=== PATIENT | female | born 1950 | race Caucasian/White ===

== ENCOUNTER 2023-04-13 10:13 | Emergency (ER) | payer MEDICARE, OTHER, SELFPAY ==
--- NOTE | 2023-04-13 10:17 | ED.FEMALEGU ---
HPI - Female Genitourinary General Chief complaint: Urogenital-Female Stated complaint: uti symptoms Time Seen by Provider: 04/13/23 10:17 Source: patient Mode of arrival: ambulatory Limitations: no limitations History of Present Illness HPI Narrative: Beba is a 72-year-old female patient presenting to the clinic today with complaints of possible UTI. She reports pain to the outside of the vaginal area with urination. States about a month ago she fell she had some vaginal itching. Has been scratching and may have cut herself when scratching. The burning has been going on for approximately 3 days. Denies any new soaps or shampoos, new sexual partners, or any new medications/antibiotics. Related Data Home Medications Medication Instructions Recorded Confirmed atorvastatin 20 mg tablet 20 mg PO DAILY 04/13/23 04/13/23 calcium carbonate 600 mg calcium 600 mg PO DAILY 04/13/23 04/13/23 (1,500 mg) tablet cetirizine 10 mg tablet 10 mg PO DAILY 04/13/23 04/13/23 folic acid 1 mg tablet 1 mg PO DAILY 04/13/23 04/13/23 levothyroxine 50 mcg tablet 50 mcg PO DAILY 04/13/23 04/13/23 (Synthroid) losartan 50 mg tablet 50 mg PO DAILY 04/13/23 04/13/23 Allergies Allergy/AdvReac Type Severity Reaction Status Date / Time propoxyphene Allergy Mild Other Unverified 04/13/23 10:43 Review of Systems Review of Systems: Pertinent positives per HPI. Patient denies any fever, chills, rash, headache, visual changes, dizziness, cough, runny nose, sore throat, shortness of breath, chest pain, palpitations, nausea, vomiting, diarrhea, constipation, abdominal pain. PMFSH Comments At the time of my signature, I reviewed and agree with the nursing past medical, surgical, social, and family history. There is no relevant family history pertinent to the patient complaint. Exam Narrative: General: Well-developed, well nourished, in no apparent distress Head: Normocephalic, atraumatic. Cardio: Regular rate and rhythm, s1 and s2 normal, no murmur appreciated. Resp: Clear to auscultation bilaterally, no rhonchi, rales, wheezing or rubs. Abdomen: Soft, pliable, bowel sounds present in all quadrants, non-tender to palpation, no CVAT tenderness. : External pelvic exam performed with (Mirna العراقي) at bedside. Verbal consent obtained from patient. Normal external female genitalia without lesions or masses, irritation,redness, with mild swelling noted to the lower labias Urinary meatus: patent without discharge, Vagina: No lesions, masses, or discharge to the vaginal introitus. Course Course Emergency Course: Portions of this record may have been created with voice recognition software. Level of Care: Express Care Visit Vital Signs Vital signs: Vital signs reviewed MDM - Female Genitourinary MDM Narrative Medical decision making narrative: At the time of visit patient is resting comfortably on the exam table. Patient appears to be nontoxic. UA was performed and was negative for any sign of infection. Does have a trace of blood. External vaginal exam was performed with Mirna at the bedside and shows excoriation of the bilateral lower labia is with redness and swollen. No sign of vaginal drainage or foul odor. Will treat for vaginal pruritus place patient on triamcinolone cream. Will have her follow-up with her OBGYN for further evaluation. Supportive measures were discussed with the patient and they voiced understanding discharge instructions and agrees to treatment plan. Return precautions reviewed Differential Diagnosis Differential diagnosis: Likely urinary tract infection, cystitis and other (Vaginal Tiffany) Discharge Plan Discharge Clinical Impression: Vulvovaginal itching, Vulvovaginal pain Patient Disposition: Home, Self-Care Condition: Stable Instructions: Antibiotic Form, Itchy Skin (ED) Additional Instructions: UA negative for any sign of infection. Does show trace of blood. Apply triamcinolone cream
[2023-04-13 10:34] VITALS: BP 150/78; PULSE 90; RESP 18; TEMP 36.3; O2SAT 98
== END 2023-04-13 11:07 | disposition home or self-care (01) ==
PROVIDERS: Emergency Provider Nurse Practitioner Family
DX: N89.8 Other specified noninflammatory disorders of vagina (principal); R10.2 Pelvic and perineal pain; E78.00 Pure hypercholesterolemia, unspecified; I10 Essential (primary) hypertension; E03.9 Hypothyroidism, unspecified
CPT/HCPCS: 81003; 99213; G0463

== ENCOUNTER 2024-12-03 10:03 | Outpatient (CLI) | payer MEDICARE, OTHER, SELFPAY ==
[2024-12-03 10:22] LABS: Hematocrit 41.4 % (37.0-47.0); Hemoglobin 13.4 g/dL (12.0-15.0); Mean Corpuscular HGB Conc 32.4 g/dl (32-36); Mean Corpuscular Hemoglobin 31.4 pg (26-34); Mean Corpuscular Volume 97.0 fl (80-100); Platelet Count Result 267 k/mm3 (150-375); Red Blood Count 4.27 M/mm3 (4.2-5.4); White Blood Count 5.8 K/mm3 (4.5-10.0)
--- OUTSIDE RECORDS SUMMARY | 2024-12-03 10:26 | XMS_ITS | Continuity of Care Document ---
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 It does not include entries that were removed or entered in error. 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 DoD Outpatient Physician Consultation Active Condition DoD bee venom anaphylaxis Active Condition DoD skin: rash [as Sx] Active Condition DoD tingling (paresthesia) Active Condition DoD nonalcoholic steatohepatitis Active Condition DoD overweight Active Condition DoD allergic rhinitis Active Condition DoD acrochordon Active Condition DoD acute bronchitis Inactive Condition DoD Blood Pressure Isolated Elevated Active Condition DoD hypothyroidism subclinical Active Condition DoD Laboratory Studies Inactive Condition Do D hypothyroidism Active Condition DoD visit for: issue repeat prescription for medication Active Condition DoD Swelling Of Fingers Active Condition Do D visit for: issue repeat prescription Inactive Condition DoD seborrheic keratosis Active Condition DoD ulcerative colitis Active Condition DoD irritable bowel syndrome Active Condition DoD hematuria Active Condition DoD depression Active Condition DoD routine history and physical adult (18 - 64 yrs) Active Condition discussed no need for paps but still needs clinical breast exam yearly, preferably prior to mammo DoD Hysterectomy Active Condition DoD restless legs syndrome Active Condition DoD impaired fasting glucose Active Condition Fasting glucose has improved somewhat. DoD Preventive Medicine Established Patient Checkup Adult 40-64 Years Inactive Condition DoD accidental puncture / laceration during a procedure Active Condition DoD open wound Active Condition DoD hyperlipidemia Active Condition Discu ssed all her lab results. Wrote rx for tricor. DoD esophageal reflux Active Condition DoD fatty liver Active Condition DoD bursitis trochanteric Active Condition DoD Administrative Evaluation Services Inactive Condition DoD osteopenia Active Condition DoD visit for: administrative purpose Inactive Condition DoD Need For Vaccination Hepatitis B Inactive Condition DoD Need For Vaccination Hepatitis A Inactive Condition DoD tendonitis gluteal Active Condition DoD visit for: routine eye exam Inactive Condition DoD presbyopia Active Condition DoD astigmatism Active Condition DoD refractive error - myopia Active Condition LE DoD visit for: screening malignant neoplasm colon Inactive Condition DoD esophagitis chronic reflux Active Condition DoD Serum Enzyme Levels - AST (SGOT) Elevated Active Condition DoD Serum Enzyme Levels - ALT (SGPT) Elevated Active Condition DoD Metabolic Tests Nonspecific Elevation Of Transaminase Levels Active Condition Labs due first week of February 2005. please refer to previous notes in [facility] for more information DoD Allergic rhinitis Active Condition 0055 C-375 th [facility] Bee sting-induced anaphylaxis Active Condition 0055C-375 th [facility] Essential hypertension Active Condition 0055C-375 th [facility] GERD - Gastro-esophageal reflux disease Active Condition 0055C-375 th [facility] Hyperlipidemia1 Active Condition Outs keyana Source Comment: Discussed all her lab results. Wrote rx for tricor. 0055C-375 th [facility] Hypothyroidism Active Condition 0055C-3 [facility] Obesity, unspecified Active Condition 0055C-375 th [facility] Osteoporosis Active Condition 0055C-375 th [facility] Prediabetes Active Condition 0055C-375 th [facility] Restless legs syndrome Active Condition 0055C-375 th [facility] Steatosis of liver Active Condition 005 5C-375 th [facility] Vitamin D deficiency Active Condition 0055C-375 th [facility] Medications Combined list of outpatient medications from Department of Defense and Veterans Affairs facilities.Medications provided include 1) outpatient medications from the last 15 months, and 2) patient-reported medications. Medication Details Route Status Patient Instructions Prescription Expires Prescription Number Last Dispense Date Ordering Provider Order Date Order Qty Source Advil Oral, every 6 hr, 0 total refill(s ), Maintena nce Oral (given by mouth) Discont inued 05/23/202320235C-3 [facility] Advil Oral, every 6 hr, 0 total refill(s ), Maintena nce Oral (given by mouth) Ordered 20235C-3 [facility] Edson alendronate 70 mg oral tablet TAKE ONE TABLET BY MOUTH ONCE A WEEK DIRECTED , # 12 EA, 2 total refill(s ), Acute Complet ed 03/23/2023 3 2022 12.0 Ambulat ory Pharmac y alendronate 70 mg oral tablet 1 tab(s), Oral, every week, with 6 to 8 ounces plain water, at least 30 minutes before first food, beverage , or medicati on of the day Ok to take with Synthroi d, # 12 tab(s), 3 total refill(s ), Maintena [facility], Pharmacy : [facility] Oral (given by mouth) Discont inued 03/04/2024 4 2023 12.0 0055C-3 75[facility] Edson alendronate 70 mg oral tablet 1 tab(s), Oral, every week, with 6 to 8 ounces plain water, at least 30 minutes before first food, beverage , or medicati on of the day Ok to take with Synthroi d, # 12 tab(s), 3 total refill(s ), Maintena [facility], Pharmacy : [facility] Oral (given by mouth) Ordered 5 2023 12.0 0055C-3 75[facility] Edson aspirin 81 mg oral delayed release tablet 1 tab(s), Oral, Daily, # 90 tab(s), 0 total refill(s ), Maintena ale Oral (given by mouth) Ordered 2023 90.0 0055C-3 75[facility] Edson aspirin 81 mg oral delayed release tablet TAKE ONE TABLET BY MOUTH EVERY DAY *SWALLOW WHOLE - DO NOT CHEW*, # 90 EA, 3 total refill(s ), Acute Complet ed 05/08/2023 3 2023 90.0 Ambulat ory Pharmac y atorvastati n 20 mg oral tablet 1 tab(s), Oral, Daily, for choleste rol, # 90 tab(s), 3 total refill(s ), Maintena ale, Pharmacy : [facility] Oral (given by mouth) Discont inued 03/04/2024 4 2023 90.0 0055C-3 75[facility] Edson atorvastati n 20 mg oral tablet 1 tab(s), Oral, Daily, for choleste rol, # 90 tab(s), 3 total refill(s ), Maintena nce, Pharmacy : [facility] Oral (given by mouth) Ordered 5 2023 90.0 0055C-3 [facility] atorvastati n 20 mg tablet See Instruct ions, # 90 EA, 2 total refill(s ), Acute Complet ed 05/08/2023 3 2023 90.0 Ambulat ory Pharmac y calcium (as carbonate)- vitamin D 600 mg-20 mcg (800 intl units) oral tablet, chewable 1 tab(s), Chew, BID, # 60 tab(s), 0 total refill(s ), Maintena nce Chew Ordered 2023 60.0 0055C-3 [facility] cetirizine 10 mg tablet See Instruct ions, # 90 EA, 2 total refill(s ), Acute Complet ed 05/08/2023 3 2023 90.0 Ambulat ory Pharmac y cinnamon 1,000 mg, Oral, 0 total refill(s ), Maintena nce Oral (given by mouth) Ordered 2023 0055C-3 [facility] conjugated estrogens 0.625 mg/g vaginal cream with applicator 0.5 g, Vaginal, every evening, Apply 0.5g vaginall y every night for 2 weeks, then twice weekly thereaft er, # 30 g, 3 total refill(s ), Maintena nce, Pharmacy : [facility] Vagina l (in the vagina ) Ordered 4 2023 30.0 0055C-[address] [place], [place] [address]ERNESTO Sandhu diclofenac 1% topical gel See instruct ions, Apply 2 grams (upper extremit ies) or 4 grams (lower extremit ies) to affected area topicall y four times daily as needed for pain. Max total body dose of 32 grams per day, # 100 g, 3 total refill(s ), Maintena nce, Pharmacy : [facility] Discont inued 03/04/2024 4 2023 100.0 0055C-[address] [place], [place] [address]CAT Edson diclofenac 1% topical gel See instruct ions, Apply 2 grams (upper extremit ies) or 4 grams (lower extremit ies) to affected area topicall y four times daily as needed for pain. Max total body dose of 32 grams per day, # 100 g, 3 total refill(s ), Kavitha an, Pharmacy : [facility] Ordered 4 2023 100.0 0055C-3 75th RAINA Sandhu diclofenac 1% topical gel USE DOSING CARD TO APPLY 2 TO 4 GRAMS TO AFFECTED AREAS EVERY NIGHT DIRECTED , # 200 g, 3 total refill(s ), Acute Complet ed 12/13/20222022 200.0 Ambulat ory Pharmac y Diflucan 150 mg oral tablet 1 tab(s), Oral, As Directed , X 1 days, # 1 tab(s), 0 total refill(s ), Acute, 04/14/23 12:04:00 PM [facility] [employer]ER, Pharmacy : [facility] Oral (given by mouth) Complet ed 04/14/2023 4 2023 1.0 0055C-3 75th RAINA Sandhu EPINEPHrine 0.3 mg injectable kit USE DIRECTED FOR SEVERE ALLERGIC REACTION , # 2 EA, 3 total refill(s ), Acute Complet ed 12/13/20222022 2.0 Ambulat ory Pharmac y EpiPen 2-Phillip 0.3 mg injectable kit See Instruct ions, Inject 1 pen into muscle of mid-oute r thigh as needed for allergic emergenc y. Seek medical attentio n. May repeat dose with new pen after 5 minutes if symptoms persist, # 1 EA, 1 total refill(s ), Kavitha alhansel, Pharmacy : [facility] Discont inued 03/04/2024 4 2023 1.0 0055C-3 75th [facility] Sand[facility] EpiPen 2-Phillip 0.3 mg injectable kit See Instruct ions, Inject 1 pen into muscle of mid-oute r thigh as needed for allergic emergenc y. Seek medical attentio n. May repeat dose with new pen after 5 minutes if symptoms persist, # 1 EA, 1 total refill(s ), Kavitha an, Pharmacy : 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 Oral (given by mouth) Complet ed 04/20/2023 4 2023 14.0 0055C-3 75th [facility] Edson fluticasone 50 mcg/inh nasal spray 100 mcg, Nostril- Both, Daily, # 16 g, 5 total refill(s ), Maintena nce, Pharmacy : [facility] Nostri l-Both (into the nose) Discont inued 03/04/2024 4 2023 16.0 0055C-3 [facility] Edson fluticasone 50 mcg/inh nasal spray USE 2 SPRAYS IN EACH NOSTRIL DAILY, # 16 g, 3 total refill(s ), Acute Complet ed 12/13/20222022 16.0 Ambulat ory Pharmac y fluticasone 50 mcg/inh nasal spray 100 mcg, Nostril- Both, Daily, # 48 g, 3 total refill(s ), Maintena nce, Pharmacy : [facility] Nostri l-Both (into the nose) Ordered 5 2023 48.0 0055C-[address] [place] [address] Edosn folic acid 1 mg oral tablet 1 tab(s), Oral, Daily, # 90 tab(s), 3 total refill(s ), Maintena nce, Pharmacy : [facility] Oral (given by mouth) Discont inued 03/04/2024 4 2023 90.0 0055C-3 75th [facility] folic acid 1 mg oral tablet 1 tab(s), Oral, Daily, # 90 tab(s), 3 total refill(s ), Maintena nce, Pharmacy : [facility] Oral (given by mouth) Ordered 5 2023 90.0 0055C-3 75th [facility] folic acid 1 mg tablet See Instruct ions, # 90 EA, 2 total refill(s ), Acute Complet ed 05/08/2023 3 2023 90.0 Ambulat ory Pharmac y glucosamine Oral, 0 total refill(s ), Maintena nce Oral (given by mouth) Ordered 2023 0055C-3 [facility] Edson levothyroxi ne (Synthroid) 50 mcg tablet See dose instruct ions in comments , # 90 EA, 2 total refill(s ), Acute Complet ed 05/08/2023 3 2023 90.0 Ambulat ory Pharmac y levothyroxi ne 25 mcg oral tablet 1 tab(s), Oral, Daily, for thyroid, # 90 tab(s), 3 total refill(s ), Maintena ale, Pharmacy : [facility] Oral (given by mouth) Ordered 5 2023 90.0 0055C-3 75[facility] Edson levothyroxi ne 50 mcg oral tablet 1 tab(s), Oral, Daily, for thyroid, # 90 tab(s), 3 total refill(s ), Maintena ale, Pharmacy : [facility] Oral (given by mouth) Discont inued 03/04/2024 4 2023 90.0 0055C-3 [facility] Edson losartan 50 mg oral tablet 1 tab(s), Oral, Daily, for blood pressure , # 90 tab(s), 3 total refill(s ), Maintena ale, Pharmacy : [facility] Oral (given by mouth) Discont inued 03/04/2024 4 2023 90.0 0055C-3 [facility] mg oral tablet 1 tab(s), Oral, Daily, for blood pressure , # 90 tab(s), 3 total refill(s ), Maintena nce, Pharmacy : [facility] Oral (given by mouth) Ordered 5 2023 90.0 0055C-3 [facility] losartan 50 mg tablet See Instruct ions, # 90 EA, 2 total refill(s ), Acute Complet ed 05/08/2023 3 2023 90.0 Ambulat ory Pharmac y Bostwick-3 oral capsule 0 total refill(s ), Maintena nce Ordered 2023 0055C-3 75th RAINA Sandhu Super B Complex oral tablet Oral, Daily, 0 total refill(s ), Maintena nce Oral (given by mouth) Ordered 2023 0055C-3 75th [facility] Sandhu terbinafine 1% topical cream 1 appl(s), Topical, BID, Apply to affected area for at least 2 weeks but no more than 4 weeks., # 30 g, 1 total refill(s ), Acute, Pharmacy : [facility] Topica l (on the skin) Complet ed 06/13/2023 4 2023 30.0 0055C-3 75th [facility] Sandhu turmeric Oral, Daily, 0 total refill(s ), Maintena nce Oral (given by mouth) Ordered 2023 0055C-3 75th RAINA Sandhu Tylenol Oral, 0 total refill(s ), Maintena nce Oral (given by mouth) Ordered 2023 0055C-3 75th [facility] Sandhu Vitamin D3 125 mcg (5000 intl units) oral capsule 1 cap(s), Oral, Daily, with food, # 56 cap(s), 0 total refill(s ), Maintena nce, Pharmacy : [facility] Oral (given by mouth) Ordered 5 2024 56.0 0055C-3 75th [facility] Sandhu Vitamin D3 125 mcg (5000 intl units) oral capsule 1 cap(s), Oral, Daily, with food, # 60 cap(s), 0 total refill(s ), Maintena nce, Pharmacy : [facility] Oral (given by mouth) Discont inued 03/11/2024 4 2023 60.0 0055C-3 75th [facility] Sandhu Vitamin D3 50 mcg (2000 intl units) oral capsule 1 cap(s), Oral, Daily, 0 total refill(s ), Maintena nce Oral (given by mouth) Ordered 2023 0055C-3 [facility] Sandhu Allergies, Adverse Reactions, Alerts Combined list of allergies from Department of Defense and Veterans Affairs facilities. It does not include entries that were removed or entered in error. Substance Category Reaction Severity Reaction type Status Date Reported Comments Source bee pollen Propensity to adverse reactions to substance Anaphylaxis Active 8 Unknown Organiza tion BEE POLLENS {Cla } Allergy to substance (disorder) Anaphylaxis active [address] [place] [address] [employer] [facility] DARVON (PROPOXYPHEN E HCL) Drug allergy (disorder) Unknown active [address] [place] [address] Edson [facility] ([facility] propoxyphene Propensity to adverse reactions to drug Unknown Active 8 Unknown Organiza tion Immunizations Combined list of available immunizations from the Department of Defense and Veterans Affairs facilities. 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: [id number] Ambulat ory Pharmac y zoster vaccine, inactivated 2021 zzRig ht Arm [id number] GlaxoSmithKli ne complet ed zoster vaccine, inactivat ed 01/27/22 Given Ambulat ory Pharmac y zoster vaccine recombinant 1 2021 Unknown, Provider [id number] Bradenine (SKB) complet ed zoster vaccine recombina nt DoD influenza, high-dose seasonal, quad, pf 2021 TRANSCR IBED 197 Unknown complet ed influenza , high-dose seasonal, quad, pf 01/23/22 Given Ambulat ory Pharmac y influenza, high-dose seasonal, quadrivalent, .7mL dose, preservative free 2021 Unknown, Provider 197 Unknown (UNK) complet ed influenza , high-dose seasonal, quadrival ent, .7mL dose, preservat eduardo free DoD zoster vaccine, inactivated 2020 zzRig ht Arm [id number] 187 GlaxoSmithKli ne complet ed zoster vaccine, inactivat ed 12/21/20 Given Ambulat ory Pharmac y pneumococcal polysaccharid e, 23 valent 2020 zzLef t Arm [id number] Merck & Company Inc complet ed pneumococ rebeca polysacch aride, 23 valent 12/21/20 Given Ambulat ory Pharmac y pneumococcal polysaccharid e vaccine, 23 valent 1 2020 Unknown, Provider [id number] Merck (MSD) complet ed pneumococ rebeca polysacch aride vaccine, 23 valent DoD zoster vaccine recombinant 1 2020 Unknown, Provider [id number] [address] [place], [place] [address] (SKB) complet ed zoster vaccine recombina nt DoD influenza virus vaccine, unspecified 2020 TRANSCR IBED 88 complet ed influenza virus vaccine, unspecifi ed 12/08/20 Given Ambulat ory Pharmac y influenza, high-dose, quadrivalent 2020 AIME, () Not Given influenza , high-dose , quadrival ent DoD influenza virus vaccine, unspecified formulation 1 2020 Unknown, Provider 88 Transcribed (TRS) complet ed influenza virus vaccine, unspecifi ed formulati on DoD influenza, high-dose seasonal, quad, pf 2020 ALEXRGARCIAFA NTAUZZI 197 complet ed Result Comment: Unit: Unknown Manufactu rer: () Ambulat ory Pharmac y SARS-CoV-2 (COVID-19) Ad26 vaccine, rec 2020 TRANSCR IBED 212 complet ed SARS-CoV- 2 (COVID-19 ) Ad26 vaccine, rec 06/11/20 Given Ambulat ory Pharmac y SARS-COV-2 (COVID-19) vaccine, vector non-replicati ng, recombinant spike protein-Ad26, preservative free, 0.5 mL 1 2020 Unknown, Provider 212 Chris (JSN) complet ed SARS-COV- 2 (COVID-19 ) vaccine, vector non-repli cating, recombina nt spike protein-A d26, preservat eduardo free, 0.5 mL DoD influenza, high-dose, quadrivalent 2019 ALUL, () Not Given influenza , high-dose , quadrival ent DoD influenza, high-dose seasonal, quad, pf 2019 ALEXRGARCIAFA NTAUZZI 197 complet ed Result Comment: Unit: Unknown Manufactu rer: () Ambulat ory Pharmac y pneumococcal 13-valent conjugate (PCV13) 2018 zzRig ht Thigh [id number] [employer] complet ed pneumococ rebeca 13-valent conjugate (PCV13) 09/10/18 Given Ambulat ory Pharmac y pneumococcal conjugate vaccine, 13 valent 1 2018 Unknown, Provider [id number] [facility] ([facility]) complet ed pneumococ rebeca conjugate vaccine, 13 valent DoD tetanus-dipht h toxoids (Td) adult/adol 2017 zzRig ht Arm [id number] 09 sanofi pasteur complet ed tetanus-d iphth toxoids (Td) adult/ado l 03/07/18 Given Ambulat ory Pharmac y tetanus and diphtheria toxoids, adsorbed, preservative free, for adult use (2 Lf of tetanus toxoid and 2 Lf of diphtheria toxoid) 1 2017 Unknown, Provider [id number] 09 Sanofi Pasteur (PMC) complet ed tetanus and diphtheri a toxoids, adsorbed, preservat eduardo free, for adult use (2 Lf of tetanus toxoid and 2 Lf of diphtheri a toxoid) DoD zoster vaccine live 2011 zzLef t Arm [id number] 121 Merck & Company Inc complet ed zoster vaccine live 10/04/11 Given Ambulat ory Pharmac y zoster vaccine, live 1 2011 Unknown, Provider [id number] 121 Merck (MSD) complet ed zoster vaccine, live DoD influenza virus vaccine,split 2007 zzLef t Arm [id number] 15 sanofi pasteur complet ed influenza virus vaccine,s plit 03/11/08 Given Ambulat ory Pharmac y hepatitis B adult vaccine 2007 zzLef t Arm [id number] 43 GlaxoSmithKli ne complet ed hepatitis B adult vaccine 03/11/08 Given Ambulat ory Pharmac y influenza virus vaccine, split virus (incl. purified surface antigen)-reti red CODE 1 2007 Unknown, Provider [id number] 15 Sanofi Pasteur (PMC) complet ed influenza virus vaccine, split virus (incl. purified surface antigen)- retired CODE DoD hepatitis B vaccine, adult dosage 3 2007 Unknown, Provider [id number] 43 Sociusdeepak (SKB) complet ed hepatitis B vaccine, adult dosage DoD HepB, Adult 2007 JOSHUA [id number] 0AA 43 complet ed Result Comment: Route: Intramusc ular(IM) Manufactu rer: Douglas magana (EDVIN) 0055C-[address] [place] [address] pneumococcal polysaccharid e, 23 valent 2006 zzLef t Arm [id number] Merck & Company Inc complet ed pneumococ rebeca polysacch aride, 23 valent 03/19/07 Given Ambulat ory Pharmac y pneumococcal polysaccharid e vaccine, 23 valent 1 2006 Unknown, Provider [id number] Merck (MSD) complet ed pneumococ rebeca polysacch aride vaccine, 23 valent DoD influenza virus vaccine,split 2006 zWilber Arm [id number] 15 GlaxoSmithKli ne complet ed influenza virus vaccine,s plit 03/05/07 Given Ambulat ory Pharmac y influenza virus vaccine, split virus (incl. purified surface antigen)-reti red CODE 1 2006 Unknown, Provider [id number] 15 Virgil (EDVIN) complet ed influenza virus vaccine, split virus (incl. purified surface antigen)- retired CODE [facility] tetanus-dipht h toxoids (Td) adult/adol 2006 09 complet ed tetanus-d iphth toxoids (Td) adult/ado l 09/14/06 Given Ambulat ory Pharmac y tetanus and diphtheria toxoids, adsorbed, preservative free, for adult use (2 Lf of tetanus toxoid and 2 Lf of diphtheria toxoid) 1 2006 Unknown, Provider 09 Transcribed (TRS) complet ed tetanus and diphtheri a toxoids, adsorbed, preservat eduardo free, for adult use (2 Lf of tetanus toxoid and 2 Lf of diphtheri a toxoid) [facility] hepatitis A-hepatitis B vaccine 2005 zzLef t Arm [id number] 5AA 104 GlaxoSmithKli ne complet ed hepatitis A-hepatit is B vaccine 10/11/05 Given Ambulat ory Pharmac y tetanus, diphtheria, acellular pertu is 2005 zzRig Arm [id number] sanofi pasteur complet ed tetanus, diphtheri a, acellular pertussis 10/11/05 Given Ambulat ory Pharmac y hepatitis A and hepatitis B vaccine 2 2005 Unknown, Provider [id number] 5AA 104 SmithKline (SKB) complet ed hepatitis A and hepatitis B vaccine DoD tetanus toxoid, reduced diphtheria toxoid, and acellular pertu is vaccine, adsorbed 1 2005 Unknown, Provider [id number] 115 Sanofi Pasteur (PMC) complet ed tetanus toxoid, reduced diphtheri a toxoid, and acellular pertussis vaccine, adsorbed DoD hepatitis A-hepatitis B vaccine 2005 zzLef t Arm [id number] 3AA 104 NepheraoSmSpeechCycleKli ne complet ed hepatitis A-hepatit is B vaccine 09/06/05 Given Ambulat ory Pharmac y hepatitis A and hepatitis B vaccine 1 2005 Unknown, Provider [id number] 104 SmithKline (SKB) complet ed hepatitis A and hepatitis B vaccine DoD influenza virus vaccine,split 2002 zzLef t Arm [id number] Novartis Pharmaceutica ls complet ed influenza virus vaccine,s plit 02/16/03 Given Ambulat ory Pharmac y influenza virus vaccine, split virus (incl. purified surface antigen)-reti red CODE 1 2002 Unknown, Provider [id number] 15 [employer] ls (PWJ) complet ed influenza virus vaccine, split virus (incl. purified surface antigen)- retired CODE DoD Results Combined list of recent chemistry, hematology and other laboratory results from Department of Defense and Veterans Affairs, ranging from 15 months to all on record, depending upon the facility. Order Name Results Value Reference Range Date Interpretation Specimen Comments Source Chemistry TSH 1.760 mIU/L 0.270 - 4.200 05/01 N Interpretiv e Data: Recommend: TPO/Thyrope roxidase Antibody when TSH result is > 4.2 uIU/mL 5600A-U [facility] EPILAB Chemistry Vitamin D 25 OH 26 ng/mL 30 - 100 05/01 L Interpretiv e Data: Classificat ion of Vitamin D Status: Deficient: <20 ng/mL Insufficien t: 20-29 ng/mL Sufficient: 30-100 ng/mL Possible Toxicity: >100 ng/mL This assay is for the quantitativ e determinati on of total 25 (OH) vitamin D. It is intended as an aid in the determinati on of vitamin D sufficiency . Results should always be interpreted in conjunction with the patient's medical history, clinical presentatio n, and other findings. Testing performed by [place]. [facility] Chemistry eGFR CKD EPI 91 mL/min/1 .73_m2 02/25 Interpretiv e Data: Estimated Glomerular Filtration Rate (eGFR) calculated using the 2020 Chronic Kidney Disease-Epi demiology (CKD-EPI) Collaborati on creatinine equation; units of measure are mL/min/1.73 m2. Results are only valid for adults (>=18 years) whose serum creatinine is in steady state. eGFR calculation s are not valid for patients with acute kidney injury and for patients on dialysis. Creatinine- based estimates of kidney function may also be inaccurate in patients with reduced creatinine generation due to decreased muscle mass (e.g., malnutritio n, severe hypoalbumin emia, sarcopenia, chronic neuromuscul ar disease, amputations , severe heart failure or liver disease) and in patients with increased creatinine generation due to increased muscle mass (e.g., muscle builders, anabolic steroids) or increased dietary intake. CKD is diagnosed based on abnormaliti es of kidney structure or function, present for >3 months, with implication s for health and disease. CKD is classified and staged based on cause, eGFR and albuminuria (quantified as urine albumin to creatinine ratio). An eGFR >60 mL/min/1.73 m2 in the absence of increased urine albumin excretion or structural abnormaliti es does not CKD. eGFR provides only an estimate of measured GFR within +/- 30% for most patients. As mentioned, nutritional status and muscle mass, among many factors, may lead to inaccuracy in the estimate. Consider ordering the creatinine- cystatin C panel if better accuracy is needed for clinical decision-bert moss. eGFR (mL/min/1.7 3 m2) CKD stage Interpretat ion Normal 60-89 Mild decrease 45-59 Mild to moderate decrease 30-44 Moderate to severe decrease 15-29 Severe decrease <15 Kidney failure 0055A-3 [facility] Chemistry Hemoglobin A1c 6.2 % 4.0 - 5.6 02/25 H Interpretiv e Data: Normal: 4.0 - 5.6% Increased Risk: 5.7 - 6.4% Diabetic Range: 6.5% For patients without diabetes, the normal range for the hemoglobin A1c test is between 4% and 5.6%. Hemoglobin A1c levels between 5.7% and 6.4% indicate increased risk of diabetes, and levels of 6.5% or higher indicate diabetes. Because studies have repeatedly shown that out-of-cont rol diabetes results in complicatio ns from the disease, the goal for people with diabetes is a hemoglobin A1c less than 7%. The higher the hemoglobin A1c, the higher the risks of developing complicatio ns related to diabetes. If confirmatio n is needed, consider recalling the patient and ordering Hemoglobin Electrophor esis. [facility] Chemistry eAvg Glucose 131 mg/dL 02/[address] [place], [place] [address] [facility] Chemistry Cholesterol Total 144 mg/dL 02/25 N Interpretiv e Data: According to the [place] [employer] : AGES 0-19: Desirable: < 170 mg/dL Borderline High: 170-199 mg/dL High Blood Cholesterol : >/= 200 mg/dL ADULTS: Desirable < 200 mg/dL Borderline High: 200-239 mg/dL High Blood Cholesterol : >/= 240 mg/dL [address] [place] [address] [facility] Chemistry Chol/HDL 3 mg/dL 02/[address] [place], [place] [address] [facility] Chemistry HDL Cholesterol 46 mg/dL 40 - 59 02/25 N Interpretiv e Data: HDL (HIGH DENSITY LIPOPROTEIN ): ADULTS: Low: < 40 mg/dL High: >/= 60 mg/dL AGES 0 -19: Low: < 40 mg/dL Borderline Low: 40 - 45 mg/dL Acceptable: > 45 mg/dL [address] [place], [place] [address] Chemistry LDL/HDL 2 02/[address] [place] [address] [facility] Chemistry Triglycerid es 183 mg/dL 7 - 149 02/25 H Interpretiv e Data: AGES 0-9: Desirable: < 75 mg/dL Borderline High: 75-99 mg/dL High: >/= 100 mg/dL AGES 10-19: Desirable: < 90 mg/dL Borderline High: 90-129 mg/dL High: >/= 130 mg/dL ADULTS: Desirable: < 150 mg/dL Borderline High: 150-199 mg/dL High: >/= 240 mg/dL Very High: >/= 500 mg/dL -[address] [place] [address] Chemistry LDL 80 mg/dL 100 - 130 02/25 L Interpretiv e Data: AGES 0-19: Desirable: < 110 mg/dL Borderline High: 110-129 mg/dL High: >/= 130 mg/dL ADULTS: Desirable: <100 mg/dL Near/above optimal: 100-130 mg/dL Borderline High: 131-159 mg/dL High: 160-189 mg/dL Very High: 190 mg/dL [address] [place] [address] Chemistry CO2 24 mmol/L 22 - 29 02/25 N 005-[address] [place] [address] Chemistry Creatinine Level 0.70 mg/dL 0.57 - 1.11 02/25 N 005-[address] [place] [address] Chemistry Potassium Lvl 4.0 mmol/L 3.5 - 5.1 02/25 N 5A-[address] [place] [address] Chemistry Glucose Lvl 131 mg/dL 74 - 99 02/25 H 5A-[address] [place] [address] Chemistry Sodium 141 mmol/L 136 - 145 02/25 N 0055A-[address] [place] [address] Chemistry Albumin 3.60 g/dL 3.50 - 5.20 02/25 N 0055A-[address] [place] [address] Chemistry Phosphorus 3.1 mg/dL 2.3 - 4.7 02/25 N 0055A-[address] [place] [address] Chemistry BUN 12 mg/dL 7 - 20 02/25 N 0055A-[address] [place] [address] Chemistry AGAP 8.00 0.00 - 15.00 02/25 N 0055A-[address] [place] [address] Chemistry Chloride 109 mmol/L 98 - 107 02/25 H 5A-[address] [place] [address] Chemistry Calcium 10.0 mg/dL 8.4 - 10.2 02/25 N 0055A-[address] [place] [address] Chemistry BUN/Creat Ratio 17 mg/dL 12 - 20 02/25 N 0055A-[address] [place] [address] Chemistry Vitamin D 25 OH 27.6 ng/mL 30.0 - 100.0 02/25 L Interpretiv e Data: Classificat ion of Vitamin D Status: Deficient: <20 ng/mL Insufficien t: 20-29 ng/mL Sufficient: 30-100 ng/mL Possible Toxicity: >100 ng/mL This assay is for the quantitativ e determinati on of total 25 (OH) vitamin D. It is intended as an aid in the determinati on of vitamin D sufficiency . Results should always be interpreted in conjunction with the patient's medical history, clinical presentatio n, and other findings. Testing performed by [facility] tom [facility]itia. [id number]-U [facility] EPIL[facility] Chemistry TSH 2.270 mIU/L 0.270 - 4.200 02/25 N Interpretiv e Data: Recommend: TPO/Thyrope roxidase Antibody when TSH result is > 4.2 uIU/mL [id number]-U [facility] EPILAB Hematolog y WBC 4.8 x10^3/mc L 4.0 - 11.0103 02/25 N 0055A[facility]3 [facility] Hematolog y MPV 9.8 fL 7.4 - 10.4 02/25 N 0055A-3 [facility] Hematolog y MCHC 33.1 g/dL 33.0 - 36.5 02/25 N 0055A-3 [facility] Hematolog y MCV 95 fL 80 - 97 02/25 N 0055A-3 [facility] Hematolog y MCH 31 pg 28 - 33 02/25 N 0055A-3 [facility] Hematolog y RDW 12.4 % 11.0 - 14.9 02/25 N 0055A-3 [facility]- [facility] Hematolog y RBC 4.4 x10^6/mc L 3.6 - 5.0106 02/25 N 0055A-3 [facility] Hematolog y Platelets 305.0 x10^3/mc L 150.0 - 450.0103 02/25 N 0055A-3 [facility] Hematolog y Differentia l? Auto ( 4 8:32 AM) 02/25 N 0055A-3 [facility] Hematolog y Hemoglobin 13.7 g/dL 11.0 - 15.0 02/25 N 0055A-3 [facility] Hematolog y Hematocrit 41 % 34 - 46 02/25 N -[address] [place] [address]- [facility] Chemistry ALT 28 U/L 5 - 55 02/25 N - [address] [place] [address] Chemistry AST 29 U/L 5 - 34 02/25 N - [address] [place] [address] Chemistry Alk Phos 54 U/L 40 - 150 02/25 N - [address] [place] [address] Chemistry Bilirubin Direct 0.2 mg/dL 0.1 - 0.5 02/25 N - [address] [place] [address]- [place] Chemistry Bilirubin Total 0.4 mg/dL 0.2 - 1.2 02/25 N - [address] [place] [address]- [facility] Chemistry Protein Total 7.1 g/dL 6.4 - 8.3 02/25 N - [address] [place] [address] Hematolog y Monocyte % Auto 10 % 1 - 12 02/25 N - [address] [place] [address] Hematolog y Neutro Absolute 2.3 x10^3/mc L 2.0 - 7.0103 02/25 N - [address] [place] [address] Hematolog y [place] Absolute 0.5 x10^3/mc L 0.2 - 0.8103 02/25 N - [address] [place] [address] Hematolog y Neutrophil % Auto 48.0 % 46.0 - 77.0 02/25 N - [address] [place] [address] Hematolog y Baso Absolute 0.0 x10^3/mc L 0.0 - 0.1103 02/25 N 005- [address] [place] [address] Hematolog y Lymphocyte % Auto 39.1 % 20.0 - 40.0 02/25 N 005-[address] [place] [address] Hematolog y Lymph Absolute 1.9 x10^3/mc L 1.2 - 4.0103 02/25 N -[address] [place] [address] Hematolog y Eos Absolute 0.1 x10^3/mc L 0.0 - 0.7103 02/25 N 005- [address] [place] [address]- [facility] Hematolog y Eosinophil % Auto 2 % 0 - 5 02/[address] [place] [address] Hematolog y Basophil % Auto 0.4 % 0.0 - 2.5 02/[address] [place] [address] Chemistry Intact PTH LC COMMENT 05/23 Result Comment: Interpretat ion Intact PTH Calcium (pg/mL) (mg/dL) Normal 15 - 65 8.6 - 10.2 Primary Hyperparath yroidism >65 >10.2 Secondary Hyperparath yroidism >65 <10.2 Non-Parathy roid Hypercalcem ia <65 >10.2 Hypoparathy roidism <15 < 8.6 Non-Parathy roid Hypocalcemi a 15 - 65 < 8.6 Performed At: [address] [id number] Iris Hickey PhD Ph:[id number] [address] [place] [address] Chemistry PTH Intact.LC 42 pg/mL 05/[address] [place] [address] Chemistry Calcium Total.LC 9.6 mg/dL 05/[address] [place] [address] Chemistry Vitamin D 25 OH 20.3 ng/mL 30.0 - 100.0 05/23 L Interpretiv e Data: Classificat ion of Vitamin D Status: Deficient: <20 ng/mL Insufficien t: 20-29 ng/mL Sufficient: 30-100 ng/mL Possible Toxicity: >100 ng/mL This assay is for the quantitativ e determinati on of total 25 (OH) vitamin D. It is intended as an aid in the determinati on of vitamin D sufficiency . Results should always be interpreted in conjunction with the patient's medical history, clinical presentatio n, and other findings. Testing performed by [facility] tom ce. [id number][facility] Chemistry G-Globulin LC 0.9 g/dL 05/[address] [place] [address] Chemistry A-1-Globuli n.LC 0.2 g/dL 05/[address] [place] [address] Chemistry B-Globulin LC 0.9 g/dL 05/[address] [place] [address] Chemistry A-2-Globuli n.LC 1.0 g/dL 05/[address] [place] [address] Chemistry Albumin g/dL LC 3.5 g/dL 05/[address] [place] [address] Chemistry Protein, Total, Serum.LC 6.5 g/dL 05/[address] [place] [address] Chemistry Protein Electro Note LC COMMENT 05/23 Result Comment: Protein electrophor esis scan will follow via computer, mail, or commercial lines underwriter delivery. Performed At: [address] [id number] Iris Hickey PhD Ph:[phone] [address] [place] [address] Chemistry Globulin.LC 3.0 g/dL 05/[address] [place] [address] Chemistry Protein Monoclonal Jose.LC Not Observed 05/[address] [place] [address] Chemistry A/G Ratio.LC 1.2 05/[address] [place] [address] Chemistry AST 26 U/L 5 - 34 05/18 N -[address] [place] [address] Chemistry ALT 27 U/L 5 - 55 05/18 N -[address] [place] [address] Chemistry Alk Phos 86 U/L 40 - 150 05/18 N -[address] [place] [address] Chemistry BUN 10 mg/dL 7 - 20 05/18 N 5A-[address] [place] [address] Chemistry Bilirubin Total 0.4 mg/dL 0.2 - 1.2 05/18 N 5A-[address] [place] [address] Chemistry Calcium 10.0 mg/dL 8.4 - 10.2 05/18 N 5A-[address] [place] [address] Chemistry BUN/Creat Ratio 17 mg/dL 12 - 20 05/18 N 5A-[address] [place] [address] Chemistry Albumin 3.40 g/dL 3.50 - 5.20 05/18 L 5A-[address] [place] [address] Chemistry AGAP 8.00 0.00 - 15.00 05/18 N 0055A-[address] [place] [address] Chemistry Glucose Lvl 121 mg/dL 74 - 99 05/18 H - [address] [place] [address] Chemistry Creatinine Level 0.60 mg/dL 0.57 - 1.11 05/18 N - [address] [place] [address] Chemistry CO2 26 mmol/L 22 - 29 05/[address] [place] [address] Chemistry Chloride 107 mmol/L 98 - 107 05/[address] [place] [address] Chemistry Potassium Lvl 4.0 mmol/L 3.5 - 5.1 05/[address] [place] [address] Chemistry Protein Total 7.0 g/dL 6.4 - 8.3 05/[address] [place] [address] Chemistry Sodium 141 mmol/L 136 - 145 05/[address] [place] [address] Chemistry Chol/HDL 4 mg/dL 05/[address] [place] [address] Chemistry Triglycerid es 142 mg/dL 7 - 149 05/18 N Interpretiv e Data: AGES 0-9: Desirable: < 75 mg/dL Borderline High: 75-99 mg/dL High: >/= 100 mg/dL AGES 10-19: Desirable: < 90 mg/dL Borderline High: 90-129 mg/dL High: >/= 130 mg/dL ADULTS: Desirable: < 150 mg/dL Borderline High: 150-199 mg/dL High: >/= 240 mg/dL Very High: >/= 500 mg/dL [address] [place] [address] Chemistry LDL 79 mg/dL 100 - 130 05/18 L Interpretiv e Data: AGES 0-19: Desirable: < 110 mg/dL Borderline High: 110-129 mg/dL High: >/= 130 mg/dL ADULTS: Desirable: <100 mg/dL Near/above optimal: 100-130 mg/dL Borderline High: 131-159 mg/dL High: 160-189 mg/dL Very High: 190 mg/dL [address] [place] [address] Chemistry LDL/HDL 2 05/[address] [place] [address] Chemistry Cholesterol Total 138 mg/dL 05/18 N Interpretiv e Data: According to the [place] [employer] : AGES 0-19: Desirable: < 170 mg/dL Borderline High: 170-199 mg/dL High Blood Cholesterol : >/= 200 mg/dL ADULTS: Desirable < 200 mg/dL Borderline High: 200-239 mg/dL High Blood Cholesterol : >/= 240 mg/dL 5A-[address] [place] [address] Chemistry HDL Cholesterol 39 mg/dL 40 - 59 05/18 L Interpretiv e Data: HDL (HIGH DENSITY LIPOPROTEIN ): ADULTS: Low: < 40 mg/dL High: >/= 60 mg/dL AGES 0 -19: Low: < 40 mg/dL Borderline Low: 40 - 45 mg/dL Acceptable: > 45 mg/dL - [facility] Chemistry eGFR CKD EPI 95 mL/min/1 .73_m2 05/18 Interpretiv e Data: Estimated Glomerular Filtration Rate (eGFR) calculated using the 2020 Chronic Kidney Disease-Epi demiology (CKD-EPI) Collaborati on creatinine equation; units of measure are mL/min/1.73 m2. Results are only valid for adults (>=18 years) whose serum creatinine is in steady state. eGFR calculation s are not valid for patients with acute kidney injury and for patients on dialysis. Creatinine- based estimates of kidney function may also be inaccurate in patients with reduced creatinine generation due to decreased muscle mass (e.g., malnutritio n, severe hypoalbumin emia, sarcopenia, chronic neuromuscul ar disease, amputations , severe heart failure or liver disease) and in patients with increased creatinine generation due to increased muscle mass (e.g., muscle builders, anabolic steroids) or increased dietary intake. CKD is diagnosed based on abnormaliti es of kidney structure or function, present for >3 months, with implication s for health and disease. CKD is classified and staged based on cause, eGFR and albuminuria (quantified as urine albumin to creatinine ratio). An eGFR >60 mL/min/1.73 m2 in the absence of increased urine albumin excretion or structural abnormaliti es does not CKD. eGFR provides only an estimate of measured GFR within +/- 30% for most patients. As mentioned, nutritional status and muscle mass, among many factors, may lead to inaccuracy in the estimate. Consider ordering the creatinine- cystatin C panel if better accuracy is needed for clinical decision-bert moss. eGFR (mL/min/1.7 3 m2) CKD stage Interpretat ion Normal 60-89 Mild decrease 45-59 Mild to moderate decrease 30-44 Moderate to severe decrease 15-29 Severe decrease <15 Kidney [address] [place] [address]- [facility] Chemistry Ur Microalb/Ur Creat Ratio PARKING INSPECTOR 05/18 Result Comment: Results out of detectable range of analyzer, calculation can not be performed. [address] [place] [address] Chemistry Ur Microalbumi n <5 mg/L 05/18 N Result Comment: Below detectable range of analyzer. Interpretiv e Data: To minimize intra-indiv idual variation, analysis of three random urine samples collected over the course of a week has also been recommended . [address] [place] [address] Chemistry Ur Creat 90 mg/dL 05/[address] [place] [address] Chemistry Hemoglobin A1c 6.1 % 4.0 - 5.6 05/18 H Interpretiv e Data: Normal: 4.0 - 5.6% Increased Risk: 5.7 - 6.4% Diabetic Range: 6.5% For patients without diabetes, the normal range for the hemoglobin A1c test is between 4% and 5.6%. Hemoglobin A1c levels between 5.7% and 6.4% indicate increased risk of diabetes, and levels of 6.5% or higher indicate diabetes. Because studies have repeatedly shown that out-of-cont rol diabetes results in complicatio ns from the disease, the goal for people with diabetes is a hemoglobin A1c less than 7%. The higher the hemoglobin A1c, the higher the risks of developing complicatio ns related to diabetes. If confirmatio n is needed, consider recalling the patient and ordering Hemoglobin Electrophor esis. [address] [place] [address] Chemistry eAvg Glucose 128 mg/dL 05/[address] [place] [address]- [facility] Hematolog y WBC 5.4 x10^3/mc L 4.0 - 11.0103 05/18 N - [address] [place], [place] [address]GRP- [facility] Hematolog y MPV 9.5 fL 7.4 - 10.4 05/[address] [place], [place] [address]GRP- [facility] Hematolog y Platelets 291.0 x10^3/mc L 150.0 - 450.0103 05/[address] [place] [address]- [facility] Hematolog y RBC 4.1 x10^6/mc L 3.6 - 5.0106 05/18 N 5A-[address] [place] [address]- [facility] Hematolog y RDW 12.6 % 11.0 - 14.9 05/18 N 5A-[address] [place] [address] Hematolog y MCV 96 fL 80 - 97 05/18 N -[address] [place] [address]- [facility] Hematolog y MCH 32 pg 28 - 33 05/18 N -[address] [place] [address]- [facility] Hematolog y MCHC 33.0 g/dL 33.0 - 36.5 05/18 N -[address] [place] [address]- [facility] Hematolog y Hemoglobin 13.0 g/dL 11.0 - 15.0 05/18 N -[address] [place] [address]- [facility] Hematolog y Hematocrit 39 % 34 - 46 05/18 N -[address] [place] [address] Chemistry TSH 1.240 mIU/L 0.270 - 4.200 05/18 N Interpretiv e Data: Recommend: TPO/Thyrope roxidase Antibody when TSH result is > 4.2 uIU/mL 5600A-U [facility] EPIL[facility] Hematolog y Baso Absolute 0.0 x10^3/mc L 0.0 - 0.1103 05/18 N -[address] [place] [address] [facility] Hematolog y Basophil % Auto 0.6 % 0.0 - 2.5 05/18 N -[address] [place] [address] Hematolog y Neutrophil % Auto 47.0 % 46.0 - 77.0 05/18 N -[address] [place] [address] Hematolog y Monocyte % Auto 8 % 1 - 12 05/18 N -[address] [place] [address]- [facility] Hematolog y Neutro Absolute 2.5 x10^3/mc L 2.0 - 7.0103 05/18 N -[address] [place] [address]- [facility] Hematolog y Lymphocyte % Auto 40.5 % 20.0 - 40.0 05/18 H 5A-3 [facility] Hematolog y Lymph Absolute 2.2 x10^3/mc L 1.2 - 4.0103 05/18 N 0055A-[address] [place] [address] Hematolog y [place] Absolute 0.4 x10^3/mc L 0.2 - 0.8103 05/18 N 0055A-[address] [place] [address] Hematolog y Eos Absolute 0.2 x10^3/mc L 0.0 - 0.7103 05/18 N 0055A-[address] [place] [address] Hematolog y Eosinophil % Auto 3 % 0 - 5 05/18 N 0055A-[address] [place] [address] Urinalysi s UA Glucose Negative mg/dL 05/18 N 0055A-[address] [place] [address] Urinalysi s UA Leuk Esterase Negative (05/18/23 9:58 AM) 05/18 N 0055A-[address] [place] [address] Urinalysi s UA Ketones Negative mg/dL 05/18 N 0055A-[address] [place] [address] Urinalysi s UA Nitrite Negative (05/18/23 9:58 AM) 05/18 N 0055A-[address] [place] [address] Urinalysi s UA Protein Negative mg/dL 05/18 N 0055A-[address] [place] [address] Urinalysi s UA pH 6.0 *NA* (05/18/23 9:58 AM) 5 - 8 05/18 0055A-[address] [place] [address] Urinalysi s UA Spec [place] 1.020 1.001 - 1.035 05/18 N 0055A-[address] [place] [address] Urinalysi s UA RBC 0-2 /HPF 05/18 N 0055A-[address] [place] [address] Urinalysi s UA WBC 0-2 /HPF 05/18 N 0055A-[address] [place] [address] Urinalysi s UA Bili Negative (05/18/23 9:58 AM) 05/18 N 0055A-[address] [place] [address] Urinalysi s UA Urobilinoge n 0.2 E.U./dL 0.2 - 1.0.. 05/18 N 0055A-[address] [place] [address] Urinalysi s UA Epi Squam 3-4 05/185A-3 [facility] Urinalysi s UA Blood Trace-in tact 05/18-3 [facility] Urinalysi s UA Color Yellow *NA* (05/18/23 9:58 AM) 05/18-3 [facility] Urinalysi s UA Clarity Slightly Cloudy 05/18-3 [facility] Vital Signs Combined list of inpatient and outpatient Vital Signs from Department of Defense and Veterans Affairs, ranging from 12 months to all on record, depending upon the facility. Vital Sign Value Date Comments Source Blood Pressure Manual Automatic 05/23/2023 15:38:00 [facility] Mean Arterial Pressure, Cuff (Calc) 98 mm[Hg] 05/23/2023 15:38:00 [facility] Peripheral Pulse Rate 80 bpm 05/23/2023 15:38:00 [facility] Respiratory Rate 20 br/min 05/23/2023 15:38:00 [facility] Systolic Blood Pressure 129 mm[Hg] 05/23/19 24 15:38:00 [facility] Diastolic Blood Pressure 82 mm[Hg] 024 15:38:00 [facility] Temperature Oral 36.7 Fanny 05/23/2023 15:38:00 [facility] BP Site Right arm 05/23/2023 15:38:00 [facility] BP Site Left lower leg 04/17/2023 17:36:00 [facility] Blood Pressure Manual Automatic 04/17/2023 17:36:00 [facility] Mean Arterial Pressure, Cuff (Calc) 89 mm[Hg] 04/17/2023 17:36:00 [facility] Peripheral Pulse Rate 83 bpm 04/17/2023 17:36:00 [facility] Respiratory Rate 14 br/min 04/17/2023 17:36:00 [facility] Systolic Blood Pressure 119 mm[Hg] 01/09/20 24 17:36:00 [facility] Diastolic Blood Pressure 74 mm[Hg] 17:36:00 [facility] Temperature Oral 36.7 Fanny 04/17/2023 17:36:00 [facility] Systolic Blood Pressure 128 mm[Hg] 03/04/20 19:11:00 [facility] Diastolic Blood Pressure 76 mm[Hg] 024 19:11:00 [facility] BP Site Left arm 03/04/2024 19:11:00 [facility] Temperature Oral 36.7 Fanny 03/04/2024 19:11:00 [facility] Blood Pressure Manual Automatic 03/04/2024 19:11:00 [facility] Peripheral Pulse Rate 84 bpm 03/04/2024 19:11:00 [facility] Mean Arterial Pressure, Cuff (Calc) 93 mm[Hg] 03/04/2024 19:11:00 [facility] Respiratory Rate 17 br/min 03/04/2024 19:11:00 [facility] Encounters Combined list of: 1) Encounters from Department of Veterans Affairs facilities going backup to the last 18 months, not all VA inpatient encounters are included; 2) Encounters from the Department of Defense facilities going backup to 280 months. Location Location Details Encounter Type Encounter Number Reason For Visit Attending Provider ADM Date DC Date Status Disposition Source [address] [place] [address] E[facility]on FERNANDES [place]Sco [facility] Tm Blue) TELE CONSULT [id number] lab results request KP Flood 09/[address] [place] [address] Edson FERNANDES [facility] Tm Blue) [address] [place] [address] Edson FERNANDES [facility]Sco tt [facility] Tm Blue) TELE CONSULT [id number] BABATUNDE Shafer 03/[address] [place] [address] Edson FERNANDES ([facility] Tm Blue) [address] [place] [address] Edson FERNANDES [facility]Sco tt [facility] Tm Blue) OUTPATIENT [id number] ADULT PHYSICA L/LAB RESULTS VINICIO LUNA A 04/24 Released w/o Limitations [address] [place] [address] Edson FERNANDES ([facility] [employer] Tm Blue) [address] [place] [address] Edson FERNANDES [facility])([facility] FAMRES Tm Blue) TELE CONSULT [id number] stopped taking meds VINICIO LUNA 05/[address] [place] [address] Edson FERNANDES ([facility]S cott [employer] [employer] Tm Blue) [address] [place] [address] Edson FERNANDES [facility])(Gas troentero logy [employer]aring) OUTPATIENT [id number] Colorec yvonne Cancer Screeni HUSSEIN Ramos 05/24 Released w/o Limitations [address] [place] [address] Edson FERNANDES ([facility])(G astroen terolog y Resourc e Sharing ) [address] [place] [address] Edson FERNANDES [facility])(Opt ometry) OUTPATIENT [id number] FULL EXAM WYATT NEWSOME 06/14 Released w/o Limitations [address] [place] [address] Edson FERNANDES [facility])(O ptometr y) [address] [place] [address] Edson FERNANDES [facility])([facility] Internal Medicine ) OUTPATIENT [id number] initial appt MAYNOR SOLORZANO 09/06 Released w/o Limitations [address] [place] [address] Edson [facility]ERNANDES [facility])(S cott Interna l Medicin e Tm) [address] [place] [address] Edson FERNANDES [facility])([facility] Internal Medicine ) TELE CONSULT [id number] osteope MAYNOR Rosario 09/[address] [place] [address] Edson FERNANDES [facility])(S cott Interna l Medicin e Tm) [address] [place] [address] Edson FERNANDES [facility])([facility] Internal Medicine ) TELE CONSULT [id number] cream for scabies AIDA HIGGINS B 10/[address] [place] [address] Edson FERNANDES [facility])(S cott Interna l Medicin e Tm) [address] [place] [address] Edson FERNANDES [facility])([facility] Internal Medicine ) TELE CONSULT [id number] hemMAVIS Gan 02/[address] [place] [address] Edson FERNANDES [facility])(S cott Interna l Medicin e Tm) [address] [place] [address] Edson FERNANDES [facility])([facility] Internal Medicine ) OUTPATIENT [id number] fol chol, bp MAYNOR SOLORZANO 04/13 Released w/o Limitations [address] [place] [address])(S cott Interna l Medicin e Tm) [address] [place] [address] [facility])([facility] Internal Medicine ) TELE CONSULT [id number] labs for upcomin g apr07 appt MAYNOR SOLORZANO 07/[address] [place] [address])(S cott Interna l Medicin e Tm) [address] [place] [address])([facility] Internal Medicine ) OUTPATIENT [id number] F/U GI PROBLEM S and Previou s Consult H#[phone] MAYNOR SOLORZANO 07/26 Released w/o Limitations [address] [place] [address])(S cott Interna l Medicin e Tm) [address] [place] [address])([facility]) OUTPATIENT [id number] avulsio n l ring finger JESUS PHILLIP T 09/14 Released w/o Limitations [address] [place] [address] [facility])([facility]) [address] [place] [address] [facility])([facility] Internal Medicine ) TELE CONSULT [id number] Order all Labs - HTN, Cholest jannet, Glucose FIDE GIRON 11/[address] [place] [address])(S cott Interna l Medicin e Tm) [address] [place] [address])([facility] Internal Medicine ) OUTPATIENT [id number] F/U HTN, CHOLEST JANNET, MEDICAT ION H#[phone] FIDE GIRON 12/06 Released w/o Limitations [address] [place] [address])(S cott Interna l Medicin e Tm) [address] [place] [address] [facility])([facility] Internal Medicine ) TELE CONSULT [id number] lab work prior to appt. HIREN NOONAN 03/[address] [place] [address])(S cott Interna l Medicin e Tm) [address] [place] [address] [facility])([facility] Internal Medicine ) OUTPATIENT [id number] fol chol, b.p. FIDE GIRON 03/19 Released w/o Limitations [employer] Edson JOSEB ([facility])(S cott Interna l Medicin e Tm) [facility] Group Edson GARCIAB ([facility])([facility] Internal Medicine Tm) TELE CONSULT [id number] HCM JULISSA TURNER Carlos 05/[address] [place] [address] Group Edson B ([facility])(S cott Interna l Medicin e Tm) [facility] Medical Group Edson B ([facility])(Bookbinder Chief ecology) OUTPATIENT [id number] well woman exam. Mammo done in reports h/o open has ovaries still NOHEMY CHOPRA 05/06 Released w/o Limitations [facility] Medical Group Edson B ([facility])(G ynecolo gy) [facility] Group Edson B ([facility])([employer] Chief ecology) TELE CONSULT [id number] results NOHEMY CHOPRA 05/[address] [place] [address] Group Edson JOSEB ([facility])(G ynecolo gy) [facility] Medical [facility] Edson B [facility])([facility] Internal Medicine Tm) TELE CONSULT [id number] Order Labs TAWANA TAN 07/18 [facility] Medical Group Edson B ([facility])(S cott Interna l Medicin e Tm) [facility] Medical Group Edson GARCIAB ([facility])([facility] Internal Medicine Tm) OUTPATIENT [id number] f/u labs ROMELIA BURRELL 07/25 Released w/o Limitations [facility] Medical Group Edson JOSEB ([facility])(S cott Interna l Medicin e Tm) [facility] Medical Group Edson B ([facility])([facility] Internal [facility] ) OUTPATIENT [id number] hm pain in rhgt side FIDE GIRON 09/11 Released w/o Limitations [facility] Medical Group Edson GARCIAB ([facility])(S cott Interna l Medicin e Tm) [facility] Medical Group Edson GARCIAB ([facility])([facility] Internal Medicine Tm) OUTPATIENT [id number] [phone] follow up on lico jannet FIDE GIRON 01/08 Released w/o Limitations [facility] Medical Group Edson GARCIAB ([facility])(S cott Interna l Medicin e Tm) [facility] Medical Group Edson AF[employer] [facility])([facility] Internal Medicine Tm) TELE CONSULT [id number] appt, labs HIREN NOONAN 02/02 [facility] Medical Group Edson FERNANDES ([facility])(S cott Interna l Medicin e Tm) [facility] Medical Group Edson FERNANDES ([facility])([facility] Internal Medicine ) TELE CONSULT [id number] Labwork needed prior to appt on 6Feb MICHELLE ABDALLA 05/[address] [place] [address] Group Edson FERNANDES ([facility])(S cott Interna l Medicin e Tm) [facility] Medical Group Edson FERNANDES ([facility])([facility] Internal Medicine ) OUTPATIENT [id number] follow up on cholest jannet/ch olistis [phone] KIT, LETHA CPT 05/15 Released w/o Limitations [address] [place] [address] Group Edson FERNANDES ([facility])(S cott Interna l Medicin e Tm) [address] [place] [address] Edson FERNANDES [facility])([facility] Internal Medicine ) TELE CONSULT [id number] Med Renewal MICHELLE ABDALLA 05/[address] [place] [address] Group Edson FERNANDES ([facility])(S cott Interna l Medicin e Tm) [facility] Medical [facility] Edson FERNANDES [facility])([facility] Internal Medicine ) OUTPATIENT [id number] ring removal KIT, LETHA CPT 06/16 Released w/o Limitations [address] [place] [address] Group Edson FERNANDES ([facility])(S cott Interna l Medicin e Tm) [facility] Medical [facility] Edson FERNANDES [facility])([facility] Internal Medicine ) TELE CONSULT [id number] Medicat ion refill HIREN NOONAN 11/04 [facility] Medical Group Edson FERNANDES ([facility])(S cott Interna l Medicin e Tm) [facility] Medical Group Edson FERNANDES [facility])(Higinio e Managemen t) TELE CONSULT [id number] CM hosp notific ROSEMARY Rankin 11/16 [facility] Medical Group Edson FERNANDES [facility])(C ase Managem ent) [facility] Medical Group Edson FERNANDES [facility])([facility] Internal Medicine ) TELE CONSULT [id number] referal for orthope HIREN Javed 11/[address] [place] [address] Group Edson FERNANDES [facility])(S cott Interna l Medicin e Tm) [facility] Medical Group Edson FERNANDES [facility])([facility] Internal Medicine ) OUTPATIENT [id number] follow up appt depress ion/lab s KIT, LETHA CPT 02/10 Released w/o Limitations [address] [place] [address] [facility])(S cott Interna l Medicin e Tm) [address] [place] [address] [facility])([facility] Internal Medicine ) TELE CONSULT [id number] SHAISTA HIREN Hansel 03/[address] [place] [address] [facility])(S cott Interna l Medicin e Tm) [address] [place] [address] [facility])([facility] Internal Medicine ) TELE CONSULT [id number] lab results KIT, [facility] CPT 03/[address] [place] [address] [facility])(S cott Interna l Medicin e Tm) [address] [place] [address] [facility])([facility] Internal [facility]) TELE CONSULT [id number] labwork needed prior to 16Feb appt. KIT, [facility] CPT 05/[address] [place] [address] [facility])(S cott Interna l Medicin e Tm) [address] [place] [address] [facility])([facility] Internal [facility]) TELE CONSULT [id number] lab KIT, LETHA CPT 05/[address] [place] [address] [facility])(S cott Interna l Medicin e Tm) [address] [place] [address] [facility])([facility] Internal [facility]) OUTPATIENT [id number] F/U FOR CHOLEST JANNET [phone] KIT, [facility] CPT 05/25 Released w/o Limitations [address] [place] [address] [facility])(S cott Interna l Medicin e Tm) [address] [place] [address] [facility])([facility] Internal Medicine ) TELE CONSULT [id number] medicat ion questio ns WALTER PEREZ 05/[address] [place] [address] [facility])(S cott Interna l Medicin e Tm) [address] [place] [address] [facility])([facility] Internal Medicine ) TELE CONSULT [id number] Lab work WALTER PEREZ 05/[address] [place] [address] [facility])(S cott Interna l Medicin e Tm) [address] [place] [address] [facility])([facility] Internal Medicine ) OUTPATIENT [id number] f/u Eval for Hypothy roidism and Med (per Dr Pantoja) LETHA PANTOJA CPT 06/02 Released w/o Limitations Medical [facility])(S cott Interna l Medicin e Tm) [facility] Medical [facility])([facility] Internal Medicine ) TELE CONSULT [id number] labs for thyroid WALTER PEREZ 07/19 [facility])(S cott Interna l Medicin e Tm) [facility])([facility] Internal Medicine ) TELE CONSULT [id number] WALTER PEREZ 07/[address] [place] [address] Group [facility])(S cott Interna l Medicin e Tm) [address] [place] [address] [facility])([facility] Internal Medicine ) OUTPATIENT [id number] [place] on arms and face CYNDI PADGETT 08/06 Released w/o Limitations [facility] [employer] [facility])(S cott Interna l Medicin e Tm) [facility] Medical [facility])([facility] Internal Medicine ) TELE CONSULT [id number] LAB RESULTS LETHA PANTOJA CPT 09/[address] [place] [address] Group [facility])(S cott Interna l Medicin e Tm) [address] [place] [address] [facility])([facility] Internal Medicine ) TELE CONSULT [id number] rx refill WALTER PEREZ 10/26 Referred for Appointment [facility] Medical Group [facility])(S cott Interna l Medicin e Tm) [facility])([facility] Internal Medicine ) TELE CONSULT [id number] Lower Extremi ty LETHA Lamb CPT 10/26 [facility] Medical Group [facility])(S cott Interna l Medicin e Tm) [facility] Medical [facility])([facility] Internal Medicine ) OUTPATIENT [id number] right leg pain/ new issiue LETHA PANTOJA CPT 11/10 Released w/o Limitations [facility])(S cott Interna l Medicin e Tm) [facility] Medical Group [facility] ([facility])([facility] Internal Medicine ) TELE CONSULT [id number] RAD linnea MENON EDE WYATTISON 11/15 Referred for Appointment [employer] [facility])(S cott Interna l Medicin e Tm) [facility])([facility] Internal Medicine ) TELE CONSULT [id number] med refill WALTER PEREZ 06/06 Referred for Appointment [employer] [facility])(S cott Interna l Medicin e Tm) [facility])([facility] Internal Medicine ) OUTPATIENT [id number] 3 mos f/u (Meds/l abs/HLP ) KIT [facility] CPT 06/14 Released w/o Limitations [facility] [employer] [place] ([facility])(S cott Interna l Medicin e Tm) [facility] Medical Group [facility])([facility] Internal Medicine ) OUTPATIENT [id number] BABATUNDE PANTOJATH CPT 06/28 Released w/o Limitations [facility] Medical Group [facility])(S cott Interna l Medicin e Tm) [facility])([facility] Internal Medicine ) TELE CONSULT [id number] YAS VERDIN 06/28 Referred for Appointment [facility])(S cott Interna l Medicin e Tm) [facility])([facility] Internal Medicine ) TELE CONSULT [id number] med refill Loreto cad tlt WILLAM CRUZ 12/07 [facility])(S cott Interna l Medicin e Tm) [facility] Medical [facility])([facility] Internal Medicine ) TELE CONSULT [id number] labwork prior to appt WALTER PEREZ 12/21 [facility] Medical Group [facility])(S cott Interna l Medicin e Tm) [facility] Medical Group [facility])([facility] Internal Medicine ) OUTPATIENT [id number] follow up with pcm WILLAM CRUZ 12/29 Released w/o Limitations [facility] Medical Group [facility])(S cott Interna l Medicin e Tm) [address] [place] [address])([facility] Internal Medicine ) TELE CONSULT [id number] WILLAM Lopez 01/[address] [place] [address])(S cott Interna l Medicin e Tm) [address] [place] [address])([facility] Internal Medicine ) TELE CONSULT [id number] rx refill WALTER PEREZ 02/[address] [place] [address])(S cott Interna l Medicin e Tm) [address] [place] [address])([facility] Internal Medicine ) TELE CONSULT [id number] Pt not sure what to do - Loreto - [phone] - tsg HIREN NOONAN 03/[address] [place] [address])(S cott Interna l Medicin e Tm) [address] [place] [address])([facility] Internal Medicine ) TELE CONSULT [id number] Order Labs/Co x/667-0 501/KMR WALTER PEREZ 05/[address] [place] [address])(S cott Interna l Medicin e Tm) [address] [place] [address])([facility] Internal Medicine ) OUTPATIENT [id number] f/u cholest jannet/ thyroid / MEDS [id number] WILLAM CRUZ 06/02 Released w/o Limitations [address] [place] [address])(S cott Interna l Medicin e Tm) [address] [place] [address])([facility] Internal Medicine ) TELE CONSULT [id number] Notes Entered by: LEONIE PENDLETON 24 Apr 2012 1451 ------- ------- ------- ------- -- Med refill, Lab order HIREN Evans 04/[address] [place] [address])(S cott Interna l Medicin e Tm) [address] [place] [address])([facility] Internal Medicine ) OUTPATIENT [id number] f/u for medicat ions [id number] WILLAM CRUZ 05/17 Released w/o Limitations [address] [place] [address])(S cott Interna l Medicin e Tm) [address] [place] [address])([facility] Internal Medicine ) TELE CONSULT [id number] Notes Entered by: MARIA C MONTAÑO 29 May 2012 1038 ------- ------- ------- ------- -- [facility]- BP Checks HIREN NOONAN 05/[address] [place] [address])(S cott Interna l Medicin e Tm) [address] [place] [address])([facility] Internal Medicine ) TELE CONSULT [id number] Notes Entered by: AIXA BETANCUR 30 Jul 2012 1045 ------- ------- ------- ------- -- Network Results - GASTROE NTEROPENNY GY 07/04/12 WILLAM CRUZ 07/[address] [place] [address])(S cott Interna l Medicin e Tm) [address] [place] [address])([facility] Internal Medicine ) TELE CONSULT [id number] Notes Entered by: BUSHRA ARBOLEDA 31 Oct 2012 1054 ------- ------- ------- ------- -- Network Results OPHTHAL MOLOGY - 3 WILLAM CRUZ 10/[address] [place] [address])(S cott Interna l Medicin e Tm) [address] [place] [address])([facility] Internal Medicine ) TELE CONSULT [id number] Notes Entered by: LEONIE PENDLETON 26 Mar 2013 0921 ------- ------- ------- ------- -- Lab request Loreto [phone] ALCIDES LUGO 03/[address] [place] [address])(S cott Interna l Medicin e Tm) [address] [place] [address])([facility] Internal Medicine ) OUTPATIENT [id number] yearly follow up [id number] WILLAM CRUZ 03/31 Released w/o Limitations [address] [place] [address])(S cott Interna l Medicin e Tm) [address] [place] [address])([facility] Internal Medicine ) TELE CONSULT [id number] Notes Entered by: Oli ARECHIGA 19 Jun 2013 0933 ------- ------- ------- ------- -- Gaurav Cruz WALTER PEREZ 06/[address] [place] [address])(S cott Interna l Medicin e Tm) [address] [place] [address])([facility] Internal Medicine ) TELE CONSULT [id number] Notes Entered by: YOLA CARPENTER 23 Dec 2013 1307 ------- ------- ------- ------- -- Network Results - DERMATO LOGY - 08/11/13 YOLA CHAWLA 12/[address] [place] [address])(S cott Interna l Medicin e Tm) [address] [place] [address])([facility] Internal Medicine ) TELE CONSULT [id number] Notes Entered by: LUCIA PARIKH ELS 26 Jan 2014 1047 ------- ------- ------- ------- -- Lab Test Request //Dion elder// 667.050 1 ALCIDES LUGO 01/[address] [place] [address])(S cott Interna l Medicin e Tm) [address] [place] [address])([facility] Internal Medicine Tm) OUTPATIENT [id number] alex roger PETTY PEREZ 02/18 Released w/o Limitations [address] [place] [address])(S cott Interna l Medicin e Tm) [address] [place] [address])([facility] Internal Medicine Tm) TELE CONSULT [id number] Notes Entered by: Oli PEREZ 29 Apr 2014 1750 ------- ------- ------- ------- -- Laborat ory results ROLDAN BARRON 04/[address] [place] [address] Group [employer] Sylvester [facility])(S cott Interna l Medicin e Tm) [address] [place] [address] [facility])([facility] Internal Medicine ) TELE CONSULT [id number] Notes Entered by: GANESH KLINE 23 Jun 2014 1433 ------- ------- ------- ------- -- New referra l/medic ation concern /abdias / ROLDAN BARRON 06/[address] [place] [address] Group [employer] [employer] [facility])(S cott Interna l Medicin e Tm) [address] [place] [address] [facility]on [facility] ) OUTPATIENT [id number] Tinglin g bilat arms/le gs X 1 week RADHIKA VÁZQUEZ V 06/24 Released w/o Limitations [address] [place] [address] Edson Sylvester [facility]) [address] [place] [address] [facility] ) OUTPATIENT [id number] f/u lab results RADHIKA VÁZQUEZ V 07/08 Released w/o Limitations [address] [place] [address])([facility]) [address] [place] [address])([facility] ) TELE CONSULT [id number] Notes Entered by: SABINO HORAN 12 Aug 2014 0915 ------- ------- ------- ------- -- Network Results -GASTRO ENTEROL OGY 08/11/14 RADHIKA VÁZQUEZ V 08/[address] [place] [address] Edson FERNANDES [facility]) [address] [place] [address] [facility] ) TELE CONSULT [id number] Notes Entered by: SABINO HORAN 14 Aug 2014 1025 ------- ------- ------- ------- -- Network Results -GASTRO ENTEROL OGY 08/11/14 RADHIKA MALDONADO V 08/[address] [place] [address] [facility] Sylvester [facility]) [address] [place] [address] [facility] ) TELE CONSULT [id number] Notes Entered by: SABINO HORAN 15 Sep 2014 1155 ------- ------- ------- ------- -- Network Results -GASTRO ENTEROL OGY 08/26/14 RADHIKA VÁZQUEZ V 09/[address] [place] [address] E[facility]on Sylvester ([facility]) [address] [place] [address] [facility] ) OUTPATIENT [id number] f/u lab work SAILAJA ELLIOTT 10/21 Released w/o Limitations [address] [place] [address] E[facility]on Sylvester ([facility]) [address] [place] [address] [facility] ) TELE CONSULT [id number] Notes Entered by: SABINO HORAN 22 Oct 2014 1416 ------- ------- ------- ------- -- Network Results -GASTRO ENTEROL OGY 10/13/14 SAILAJA ELLIOTT 10/[address] [place] [address] E[facility]on Sylvester [facility]) [address] [place] [address] [facility] ) TELE CONSULT [id number] Notes Entered by: SABINO HORAN 30 Nov 2014 1338 ------- ------- ------- ------- -- Network Results -GASTRO ENTEROL OGY 11/24/14 AYESHA COOK V 11/[address] [place] [address] Edson Sylvester [facility]) [address] [place] [address] [facility])([facility] ) TELE CONSULT [id number] Notes Entered by: [place] OROZCO 08 Jan 2015 1120 ------- ------- ------- ------- -- Request for Lab Order / Eunice / WALTER PEREZ 01/[address] [place] [address])([facility]) [address] [place] [address])([facility] ) OUTPATIENT [id number] f/u Meds AYESHA COOK V 01/23 Released w/o Limitations [address] [place] [address])([facility] [address] [place] [address])([facility] ) TELE CONSULT [id number] Notes Entered by: TARIQ WELLS 06 Aug 2015 0954 ------- ------- ------- ------- -- Lab Request (appt w/PCM on 12 August)/Alvino genio/6 [phone] LUCITA HAIR 08/05 Released w/o Limitations [address] [place] [address])([facility]) [address] [place] [address])([facility] ) OUTPATIENT [id number] f/u on meds [phone] 1 JOHANNA SEPULVEDA 08/11 Released w/o Limitations [address] [place] [address])([facility]) [address] [place] [address])([facility] ) TELE CONSULT [id number] Notes Entered by: Rashard PIERCE 23 Aug 2015 09 ------- ------- ------- ------- -- Medicat ion Inquiry / Vadim / or # LUCITA HAIR 08/22 Referred for Appointment [address] [place] [address])([facility]) [address] [place] [address])([facility] ) TELE CONSULT [id number] Notes Entered by: KISHOR FORREST 19 Nov 2015 1429 ------- ------- ------- ------- -- Order labs - Bridge Rx - Vadim - - ROLDAN Love 11/[address] [place] [address] [facility] [address] [place] [address])([facility] ) OUTPATIENT [id number] F/U meds/JOHANNA Rockwell 12/05 Released w/o Limitations [address] [place] [address])([facility]) [address] [place] [address])([facility] ) TELE CONSULT [id number] Notes Entered by: JOHANNA SEPULVEDA 15 Dec 2015 1405 ------- ------- ------- ------- -- ROLDAN Joe 12/[address] [place] [address] [facility] [address] [place] [address])([facility] ) TELE CONSULT [id number] Notes Entered by: JOHANNA SEPULVEDA 21 Jan 2016 1612 ------- ------- ------- ------- -- ROLDAN Banda 01/[address] [place] [address] [facility] [address] [place] [address])([facility] ) TELE CONSULT [id number] Notes Entered by: GEORGE MITCHELL RET 10 Jul 2016 0943 ------- ------- ------- ------- -- Med Benigno /Marie magana/ marguerite MACIASDAYANNA STEVENSLOUIE Wetzel 07/10 Referred for Appointment [facility])([facility]) [facility])([facility] ) TELE CONSULT [id number] Notes Entered by: DARIUS MAGNO MUÑOZ ANNA 11 Oct 2016 0924 ------- ------- ------- ------- -- Med Renewal /SAMMY R/[id number] SHAKIRACARLOTAADELE A 10/11 Referred for Appointment [facility])([facility]) [address] [place] [address])([facility] ) OUTPATIENT [id number] f/u labs annual visit/m ed LAN Talavera 10/31 Released w/o Limitations [address] [place] [address])([facility] [address] [place] [address])([facility] ) OUTPATIENT [id number] Sore throat/ headach e/cough /chest congest ion [id number] LAN MCDERMOTT 01/01 Released w/o Limitations [address] [place] [address])([facility]) [address] [place] [address])([facility] ) TELE CONSULT [id number] Notes Entered by: GEORGE MITCHELL RET 25 Jan 2017 1058 ------- ------- ------- ------- -- Rx Renewal /Sammy r/ [facility] EMILY LAURENT 01/25 Referred for Appointment [facility])([facility]) [address] [place] [address])([facility] ) TELE CONSULT [id number] Notes Entered by: TARIQ WELLS 19 Jul 2017 1003 ------- ------- ------- ------- -- Med Renewal /Rusty / ROLDAN BARRON 07/[address] [place] [address])([facility]) [address] [place] [address])([facility] ) OUTPATIENT [id number] Annual Visit MELANY VANCE 09/11 Released w/o Limitations [address] [place] [address])([facility] [address] [place] [address])([facility] ) TELE CONSULT [id number] Notes Entered by: ZEE GARCIA 02 Jan 2018 1130 ------- ------- ------- ------- -- Med Renewal Request Med Inquiry / Lewis/ [phone] - ajh ROLDAN BARRON 01/02 Medication Refill Forwarded [address] [place] [address])([facility]) [address] [place] [address])([facility] ) TELE CONSULT [id number] Notes Entered by: [place] OROZCO 15 Apr 2018 1024 ------- ------- ------- ------- -- Med Renewal / Lewis / - sgj JACKELINE KLINE 04/15 Medication Refill Forwarded [address] [place] [address])([facility] [address] [place] [address])([facility] ) TELE CONSULT [id number] Notes Entered by: [place] OROZCO 22 Jul 2018 1136 ------- ------- ------- ------- -- Med Renewal / [place] / - sgj EMILY LAURENT 07/22 Referred for Appointment [address] [place] [address])([facility] [address] [place] [address])([facility] ) TELE CONSULT [id number] Notes Entered by: KISHOR FORREST 17 Jan 2019 1055 ------- ------- ------- ------- -- Rx renewal - Lewis - - tsg YAS HERNANDEZ 01/[address] [place] [address])([facility] [address] [place] [address])([facility] ) OUTPATIENT [id number] blood work results ,[phone] COLUMBA AGUILAR 01/27 Released w/o Limitations [address] [place] [address])([facility] [address] [place] [address])([facility] ) TELE CONSULT [id number] Notes Entered by: LAUREANO HOLT 23 Jun 2019 0926 ------- ------- ------- ------- -- Rx Renewal and Lab Work Jarrett lynch/April v/ ADELE HOGUE 06/22 Medication Refill Forwarded [address] [place] [address])([facility] [address] [place] [address])([facility] ) TELE CONSULT [id number] Notes Entered by: DELILAH AGUILAR 17 Jul 2019 1022 ------- ------- ------- ------- -- Hyperli pidemia COLUMBA AGUILAR 07/[address] [place] [address])([facility] [address] [place] [address])([facility] ) OUTPATIENT [id number] virtual f/u lipid lab pt contact # COLUMBA AGUILAR 07/27 Released w/o Limitations [address] [place], [place] [address])([facility]) [facility])([facility] ) TELE CONSULT [id number] Notes Entered by: ZEE GARCIA 10 Dec 2019 1116 ------- ------- ------- ------- -- Med Renewal Request / Roosevelt/ - ADELE Mnuoz 12/09 Referred for Appointment [address] [place] [address] Group [facility])([facility]) [address] [place] [address])([facility] ) OUTPATIENT [id number] Virtual annual and LILLIANA Isidro 12/25 Released w/o Limitations [address] [place] [address])([facility] [address] [place] [address])([facility] ) TELE CONSULT [id number] Notes Entered by: JHOANA VEGA 15 Jan 2020 1005 ------- ------- ------- ------- -- log/[facility] en/6186 [id number] ROLDAN BARRON 01/14 Other Not Elsewhere Classified [facility])([facility]) [address] [place] [address])([facility] ) TELE CONSULT [id number] Notes Entered by: CARLOS MANUEL CEE 31 May 2020 0856 ------- ------- ------- ------- -- med josue/ roosevelt/Adalgisa [id number] EMILY Quinn 05/31 Other Not Elsewhere Classified [address] [place] [address])([facility] [address] [place] [address])([facility] ) TELE CONSULT [id number] Notes Entered by: CARLOS MANUEL CEE 05 Nov 2020 1024 ------- ------- ------- ------- -- med refill/ puentes/[phone] AEDLE Lyon 11/05 Medication Refill Forwarded [address] [place] [address])([facility]) [address] [place] [address])([facility] ) TELE CONSULT [id number] Notes Entered by: GEORGE MITCHELL RET 14 Dec 2020 1014 ------- ------- ------- ------- -- Lab Order for yearly appt n/ *EMILY Abebe 12/14 Other Not Elsewhere Classified [address] [place] [address])([facility]) [address] [place] [address])([facility] ) OUTPATIENT [id number] yearly exam LEONID PUENTES 12/20 Released w/o Limitations [address] [place] [address])([facility]) [address] [place] [address])([facility] ) TELE CONSULT [id number] Notes Entered by: TARIQ WELLS 26 Apr 2021 0931 ------- ------- ------- ------- -- Lab Request and Med Renewal /Puentes/61 [phone] BITA PIZARRO 04/26 Medication Refill Forwarded [address] [place] [address])([facility] [address] [place] [address])([facility] ) OUTPATIENT [id number] VIRTUAL [phone] F/U A1C, BP reading BERNA Navarro 05/03 Released w/o Limitations [address] [place] [address])([facility]) [address] [place] [address])([facility] ) TELE CONSULT [id number] Notes Entered by: ELPIDIO WEBSTER 11 Oct 202143 ------- ------- ------- ------- -- Medicat ion Refills JOSHUA WEBSTER 10/[address] [place] [address])([facility]) [address] [place] [address])([facility] ) TELE CONSULT [id number] Notes Entered by: SABINO ZENDEJAS 13 Dec 2021 0817 ------- ------- ------- ------- -- Out of Meds RX Renewal Request / Cuate saenz / JOSHUA WEBSTER 12/[address] [place] [address])([facility] [address] [place] [address])([facility] ) OUTPATIENT [id number] F2F OVERDUE ANNUAL APPT TRUONG OJEDA 01/09 Released w/o Limitations [address] [place] [address])([facility] [address] [place] [address])([facility] ) TELE CONSULT [id number] Notes Entered by: TARIQ WELLS 10 Feb 2022911 ------- ------- ------- ------- -- Prescri ptions not in Pharmac y/Genaro wolf/Wendy 8.667.0 501 or BRICE ALICIA 02/10 Other Not Elsewhere Classified [address] [place] [address])([facility]) [address] [place] [address])([facility] ) TELE CONSULT [id number] Notes Entered by: CHRISTAL VALDES 03 Mar 2022 1001 ------- ------- ------- ------- -- Bone Density EMILY LAURENT 03/03 Referred for Appointment [address] [place] [address])([facility]) [address] [place] [address])([facility] ) OUTPATIENT [id number] Virtual bone scan results TRUONG OJEDA 03/15 Released w/o Limitations [address] [place] [address])([facility]) [address] [place] [address])([facility] ) TELE CONSULT [id number] Notes Entered by: MAILE PIZARRO 09 May 2022 0956 ------- ------- ------- ------- -- Med Renewal Request /RODRIG U/ GIL COULTER 05/09 Medication Refill Forwarded [address] [place] [address])([facility]) 0055[facility] [id number] KRISHAN GAMA 05/01 Discharge Disposition: Home or Self Care 0055A[facility] 0055C[facility] Between Visit [id number] 05/08 Discharge Disposition: Home or Self Care 0055C-3 [facility] 0055C[facility] Between Visit [id number] 05/08 Discharge Disposition: Home or Self Care 0055C-3 [facility] 0055[facility] Out[facility] [id number] REE JMICAELADD 06/26 Discharge Disposition: Home or Self Care 0055A-3 [facility] 6130C-Af- C-[facility] Between Visit [id number] 06/29 Discharge Disposition: Home or Self Care 6130C-A f-C-375 Th [facility] Procedures Combined list of: 1) Procedures from Department of Veterans Affairs facilities going back up to thelast 18 months, not all VA non-surgical procedures are included; 2) All procedures from the Department of Defense facilities. Procedure Procedure Type Code Date Perfomer Comments Marisa e TELE ASSESS & MGT SRV PROV QUAL NONPHYS HLTH CARE PRO TO EST PAT,PARENT,GUARD NOT ORIG REL ASSESS & MGT SRV PROV W/IN PREV 7 DAYS NOR LEAD ASSESS & MGT SRV/PX W/IN NXT 24H/SOON APT; 11-20 MIN MED DIS 023 DoD WAIVER SERVICES; NOT OTHERWISE SPECIFIED (NOS) 022 DoD TELE ASSESS & MGT SRV PROV QUAL NONPHYS HLTH CARE PRO TO EST PAT,PARENT,GUARD NOT ORIG REL ASSESS & MGT SRV PROV W/IN PREV 7 DAYS NOR LEAD ASSESS & MGT SRV/PX W/IN NXT 24 HR/SOON APT;5-10 MIN MED DIS 022 DoD TELE ASSESS & MGT SRV PROV QUAL NONPHYS HLTH CARE PRO TO EST PAT,PARENT,GUARD NOT ORIG REL ASSESS & MGT SRV PROV W/IN PREV 7 DAYS NOR LEAD ASSESS & MGT SRV/PX W/IN NXT 24H/SOON APT; 11-20 MIN MED DIS 022 DoD WAIVER SERVICES; NOT OTHERWISE SPECIFIED (NOS) 022 DoD TELE ASSESS & MGT SRV PROV QUAL NONPHYS HLTH CARE PRO TO EST PAT,PARENT,GUARD NOT ORIG REL ASSESS & MGT SRV PROV W/IN PREV 7 DAYS NOR LEAD ASSESS & MGT SRV/PX W/IN NXT 24 HR/SOON APT;5-10 MIN MED DIS 022 DoD TELE ASSESS & MGT SRV PROV QUAL NONPHYS HLTH CARE PRO TO EST PAT,PARENT,GUARD NOT ORIG REL ASSESS & MGT SRV PROV W/IN PREV 7 DAYS NOR LEAD ASSESS & MGT SRV/PX W/IN NXT 24 HR/SOON APT;5-10 MIN MED DIS 018 DoD TELE ASSESS & MGT SRV PROV QUAL NONPHYS HLTH CARE PRO TO EST PAT,PARENT,GUARD NOT ORIG REL ASSESS & MGT SRV PROV W/IN PREV 7 DAYS NOR LEAD ASSESS & MGT SRV/PX W/IN NXT 24 HR/SOON APT;5-10 MIN MED DIS 018 DoD TELE ASSESS & MGT SRV PROV QUAL NONPHYS HLTH CARE PRO TO EST PAT,PARENT,GUARD NOT ORIG REL ASSESS & MGT SRV PROV W/IN PREV 7 DAYS NOR LEAD ASSESS & MGT SRV/PX W/IN NXT 24 HR/SOON APT;5-10 MIN MED DIS 017 DoD TELE ASSESS & MGT SRV PROV QUAL NONPHYS HLTH CARE PRO TO EST PAT,PARENT,GUARD NOT ORIG REL ASSESS & MGT SRV PROV W/IN PREV 7 DAYS NOR LEAD ASSESS & MGT SRV/PX W/IN NXT 24 HR/SOON APT;5-10 MIN MED DIS 017 DoD TELE ASSESS & MGT SRV PROV QUAL NONPHYS HLTH CARE PRO TO EST PAT,PARENT,GUARD NOT ORIG REL ASSESS & MGT SRV PROV W/IN PREV 7 DAYS NOR LEAD ASSESS & MGT SRV/PX W/IN NXT 24 HR/SOON APT;5-10 MIN MED DIS 017 DoD TELE ASSESS & MGT SRV PROV QUAL NONPHYS HLTH CARE PRO TO EST PAT,PARENT,GUARD NOT ORIG REL ASSESS & MGT SRV PROV W/IN PREV 7 DAYS NOR LEAD ASSESS & MGT SRV/PX W/IN NXT 24 HR/SOON APT;5-10 MIN MED DIS 016 DoD TELE ASSESS & MGT SRV PROV QUAL NONPHYS HLTH CARE PRO TO EST PAT,PARENT,GUARD NOT ORIG REL ASSESS & MGT SRV PROV W/IN PREV 7 DAYS NOR LEAD ASSESS & MGT SRV/PX W/IN NXT 24 HR/SOON APT;5-10 MIN MED DIS 016 DoD TELE ASSESS & MGT SRV PROV QUAL NONPHYS HLTH CARE PRO TO EST PAT,PARENT,GUARD NOT ORIG REL ASSESS & MGT SRV PROV W/IN PREV 7 DAYS NOR LEAD ASSESS & MGT SRV/PX W/IN NXT 24 HR/SOON APT;5-10 MIN MED DIS 014 DoD TELE ASSESS & MGT SRV PROV QUAL NONPHYS HLTH CARE PRO TO EST PAT,PARENT,GUARD NOT ORIG REL ASSESS & MGT SRV PROV W/IN PREV 7 DAYS NOR LEAD ASSESS & MGT SRV/PX W/IN NXT 24H/SOON APT; 11-20 MIN MED DIS 014 DoD TELE ASSESS & MGT SRV PROV QUAL NONPHYS HLTH CARE PRO TO EST PAT,PARENT,GUARD NOT ORIG REL ASSESS & MGT SRV PROV W/IN PREV 7 DAYS NOR LEAD ASSESS & MGT SRV/PX W/IN NXT 24 HR/SOON APT;5-10 MIN MED DIS 013 DoD AMBULATORY BLOOD PRESSURE MONITORING, UTILIZING REPORT-GENERATING SOFTWARE, AUTOMATED, WORN CONTINUOUSLY FOR 24 HOURS OR LONGER; INCLUDING RECORDING, SCANNING ANALYSIS, INTERPRETATION AND REPORT 011 DoD DESTRUCTION (EG, LASER SURGERY, ELECTROSURGERY, CRYOSURGERY, CHEMOSURGERY, SURGICAL CURETTEMENT), OF BENIGN LESIONS OTHER THAN SKIN TAGS OR CUTANEOUS VASCULAR PROLIFERATIVE LESIONS; UP TO 14 LESIONS 010 DoD TELE ASSESS & MGT SRV PROV QUAL NONPHYS HLTH CARE PRO TO EST PAT,PARENT,GUARD NOT ORIG REL ASSESS & MGT SRV PROV W/IN PREV 7 DAYS NOR LEAD ASSESS & MGT SRV/PX W/IN NXT 24 HR/SOON APT;5-10 MIN MED DIS 010 DoD IMMUNIZATION ADMINISTRATION (INCLUDES PERCUTANEOUS, INTRADERMAL, SUBCUTANEOUS, OR INTRAMUSCULAR INJECTIONS); EACH ADDITIONAL VACCINE (SINGLE OR COMBINATION VACCINE/TOXOID) 006 DoD VISUAL FIELD EXAMINATION, UNI OR BILATERAL, WITH MEDICAL DIAGNOSTIC EVAL; INTERMEDIATE EXAM (EG, AT LEAST 2 ISOPTERS ON GOLDMANN PERIMETER, OR SEMIQUANT, AUTO SUPRATHRESHOLD SCREEN PROGRAM, MUNROE 006 DoD UNLISTED SPECIAL SERVICE, PROCEDURE OR REPORT 006 [facility] Non-Physician Phone Call To Patient/Provider Brief (5-10min) Non-Physician Phone Call To Patient/Provider Brief (5-10min) [id number] [phone] COLUMBA AGUILAR DoD Non-Physician Phone Call To Patient/Provider Brief (5-10min) Non-Physician Phone Call To Patient/Provider Brief (5-10min) [phone] ROLDAN BARRON [facility] Non-Physician Phone Call To Patient/Provider Brief (5-10min) Non-Physician Phone Call To Patient/Provider Brief (5-10min) [phone] EMILY ARROYO [facility] Non-Physician Phone Call To Patient/Provider Brief (5-10min) Non-Physician Phone Call To Patient/Provider Brief (5-10min) [phone] ADELE ROSENBERG [facility] Non-Physician Phone Call To Patient/Provider Brief (5-10min) Non-Physician Phone Call To Patient/Provider Brief (5-10min) [phone] ADELE ROSENBERG [facility] Non-Physician Phone Call To Patient/Provider Brief (5-10min) Non-Physician Phone Call To Patient/Provider Brief (5-10min) [id number] ROLDAN BARRON [facility] Non-Physician Phone Call To Patient/Provider Brief (5-10min) Non-Physician Phone Call To Patient/Provider Brief (5-10min) [phone] ROLDAN BARRON [facility] Non-Physician Phone Call To Patient/Provider Brief (5-10min) Non-Physician Phone Call To Patient/Provider Brief (5-10min) [phone] ALCIDES LUGO [facility] Non-Physician Phone Call To Pt/Provider Intermed (11-20 min) Non-Physician Phone Call To Pt/Provider Intermed (11-20 min) [phone] WALTER PEREZ [facility] Non-Physician Phone Call To Patient/Provider Brief (5-10min) Non-Physician Phone Call To Patient/Provider Brief (5-10min) [phone] ALCIDES LUGO [facility] 24-Hour Ambulatory Blood Pre ure Monitoring 011 LETHA PANTOJA CPT DoD Skin Tag Removal Up To 15 Lesions Skin Tag Removal Up To 15 Lesions [id number] CYNDI PADGETT DoD Destruction Of Benign Lesion By Cryosurgery 010 CYNDI PADGETT [facility] Non-Physician Phone Call To Patient/Provider Brief (5-10min) Non-Physician Phone Call To Patient/Provider Brief (5-10min) [phone] WALTER PEREZ [facility] Hepatitis A Vaccine Adult Dosage (Intramuscular Use) Hepatitis A Vaccine Adult Dosage (Intramuscular Use) [id number] MICHELLE BELTRAN Hepatitis B Vaccine (Active) Adult Dosage MICHELLE BELTRAN Immunization Administration By Injection, One Vaccine Immunization Administration By Injection, One Vaccine 06421 MICHELLE SPARKS Immunization Administration By Injection, Each Additional Vaccine MICHELLE BELTRAN Ophthalmological New Patient Start Comprehensive Care Ophthalmological New Patient Start Comprehensive Care [address] [address] [facility] Determination Of Refractive State Determination Of Refractive State [address] [address] NEWSOME [facility] Visual Hernandez Test Intermediate Examination Visual Hernandez Test Intermediate Examination [id number] WYATT NEWSOME Non-Physician Phone Call To Pt/Provider Intermed (11-20 min) Non-Physician Phone Call To Pt/Provider Intermed (11-20 min) [id number] KAREN BROWN Non-Physician Phone Call To Patient/Provider Brief (5-10min) Non-Physician Phone Call To Patient/Provider Brief (5-10min) [id number] KAREN BROWN [facility] Waiver services; not otherwise specified (NOS) BERNA KELLEY [facility] No data available for this section Ambulato ry Pharmacy Social History Combined list of available smoking, tobacco, and other social history from Department of Defense and Veterans Affairs facilities. Social History Type Response Date Comment [facility] e Sex Representation Female (finding) 06/01/2022 Unknown Organization This section is an empty social history section. [facility] Tobacco Cigarette use: Never-cigarette user. Other Tobacco use: Never-other tobacco user (not cigarettes). Ambulatory Pharmacy Sexual Orientation Ambula tory Pharmacy Gender identity Ambulator y Pharmacy Assessment and Plan Combined list of future care activities from Department of Defense and Veterans Affairs facilities (e.g., assessment and plan notes, appointments, orders, and referrals). Additional future care activities may be listed in the Plan of Care section. Result Assessment and Plan Date Source Assessment and Plan Extracted from:Title : 0055C IM Clinic - Annual visit Author: KRISHAN CEJA MD Date: 03/04/24 1. A nnual wellness exam R eviewed most recent labs, imaging, h istory, and prev med. ROS and physical exam unremarkable. Discussed diet and exercise recommendations (Low carb diet, Mediterranean diet, whole food plant based as options). 150 min/wk vigorous exercise per ACC/AHA. Preventative Medicine: # General Wellness. -Breast CA Screening: Jennifer 2021; due for repeat, advised to schedule -Cervical CA Screening: s/p H ysterectomy -Colon CA Screening: c olitis 2014 no polyps 3 yr f/u but lost to f/u, referral placed last year but she has not yet made an appt. Advised to schedule. -Lung CA: D oes not meet criteria (non-smoker) -Osteoporosis Screening: Known osteoporosis (osteopenia with high FRAX risk); last scan in 2021. Repeat next year. -AAA Screening: Not indicated as patient is female -Diabetes Screening: Patient is K nown pre-diabetic (discussed in assessment/plan) -Lipid Screening: O n statin -ASCVD: 17% -Hepatitis C (lifetime): N egative (07/01/2014) # Vaccinations: -Influenza: Advised to complete annually -Pneumococcal: PCV13: 09/10/2018 PPSV23: 12/21/2020 X2 -Tetanus: Last 1 05/07/2017 -Zoster: 05/11 2021 -COVID: J&J 06/11/2020, Booster on 02/26/2021 2. E ssential hypertension G oal <130/80 per ACC/AHA. Home readings and clinic at goal; asymptomatic. B MP unremarkable. - continue losartan 50 mg daily - Advised following the DASH diet or a diet low in sodium (<2400mg sodium daily) - Advised to keep daily blood pressure log and to call if readings are consistently above or below goal for >3 days or if symptoms develop 3. H yperlipidemia L DL 80. ASCVD risk: 17%. On appropriate moderate intensity statin for primary prevention. - Atorvastatin 20 mg at bedtime. 4. P rediabetes Well controlled with no medications. Last A1c was: 6.2%, goal A1c < 6.5%. To assist with glycemic control and cardiovascular risk, patient should exercise at least 150 min/week. - Reduce processed sugar and carbohydrates - Annual A1c 5. O steoporosis CT bone scan in 2021 showed osteopenia with F RAX scores of 20% a nd 5%, respectively. Vitamin D was 25 at the time. CMP, SPEP, and PTH were WNL. - Continue alendronate 70mg weekly, ok to take at the same time as levothyroxine - Repeat bone scan in 3 years - Counseled on ways to increase vitamin D level including eating fortified foods and increasing sun exposure 6. V itamin D deficiency V itamin D 27.6. Still low on 1000 units daily. - Increase to 2000 IU daily 7. H ypothyroidism T SH . She denies symptoms of hypothyroidism (constipation, dry skin, hair loss, etc.) o r hyperthyroidism (fast heart rate, palpitations, diarrhea, anxiety). BUBBA recommends target serum TSH of 4-6mcIU/L in people ages 70-80. The goal in individuals >80 years old is highly contested, but general consensus is a goal between 6-8mcIU/L. - Decrease levothyroxine to 25mcg daily - Recheck TSH in 6-8 wks Patient encouraged to return to clinic, present to UCC or ER for persistent worsening or development of other concerning symptoms. Patient cites understanding and agrees with plan of care. A total of 40 minutes was spent on this visit reviewing previous notes, counseling the patient on the listed diagnoses, reviewing/ordering tests, adjusting medications, and documenting the findings in this note. Krishan Ceja MD Capt, [address] [facility] Internal Medicine Staff Physician Extracted from:Title: 0055C IM - Osteoporosis/vitamin d deficiency (virtual) Author: KRISHAN CEJA MD Date: 05/31/[address] bone scan in 2021 showed osteopenia with F RAX scores of 20% a nd 5%, respectively. Vitamin D was 25 at the time. She was advised to start alendronate, but she did not due to concerns about taking it on an empty stomach since she already has to take levothyroxine by itself on an empty stomach. On repeat labs, CMP, SPEP, and PTH were WNL. Vitamin D was 20. It is unlikely that the vitamin D is significantly effecting her bone density. We discussed starting medications, which she is agreeable to. - Start alendronate 70mg weekly, ok to take at the same time as levothyroxine - Repeat bone scan in 3 years - Start vitamin D 5000 IU daily for 8 weeks - Counseled on ways to increase vitamin D level including eating fortified foods and increasing sun exposure - Check vitamin D in 8 wks; then switch to 1000 IU daily Ordered: alendronate(alendronate 70 mg oral tablet), 1 tab(s), Oral, every week, with 6 to 8 ounces plain water, at least 30 minutes before first food, beverage, or medication of the day Ok to take with Synthroid, # 12 tab(s), 3 total refill(s), Maintenance, 1 tab(s) Oral every week,Instr:with 6 to 8... cholecalciferol(Vitamin D3 125 mcg (5000 intl units) oral capsule), 1 cap(s), Oral, Daily, with food, # 60 cap(s), 0 total refill(s), Maintenance, 1 cap(s) Oral Daily,Instr:with food, Pharmacy: [facility] [Not filled] Vitamin D 25 Hydroxy Level 2. V itamin D deficiency See above Ordered: alendronate(alendronate 70 mg oral tablet), 1 tab(s), Oral, every week, with 6 to 8 ounces plain water, at least 30 minutes before first food, beverage, or medication of the day Ok to take with Synthroid, # 12 tab(s), 3 total refill(s), Maintenance, 1 tab(s) Oral every week,Instr:with 6 to 8... cholecalciferol(Vitamin D3 125 mcg (5000 intl units) oral capsule), 1 cap(s), Oral, Daily, with food, # 60 cap(s), 0 total refill(s), Maintenance, 1 cap(s) Oral Daily,Instr:with food, Pharmacy: [facility] [Not filled] Vitamin D 25 Hydroxy Level Patient encouraged to return to clinic, present to UCC or ER for persistent worsening or development of other concerning symptoms. Patient cites understanding and agrees with plan of care. A total of 10 minutes was spent on this visit reviewing previous notes, counseling the patient on the listed diagnoses, reviewing/ordering tests, adjusting medications, and documenting the findings in this note. Krishan Ceja MD Capt, [facility], [facility] Internal Medicine Staff Physician Extracted from:Title: Ambulatory Patient Education Author: KRISHAN CEJA MD Date: 05/23/23 Endocrinology Intertrigo Intertrigo is skin irritation or inflammation (dermatitis) that occurs when folds of skin rub together. The irritation can cause a rash and make skin raw and itchy. This condition most commonly occurs in the skin folds of these areas: Toes. Armpits. Groin. Under the belly. Under the breasts. Buttocks. Intertrigo is not passed from person to person (is not contagious). What are the causes? This condition is caused by heat, moisture, rubbing (friction), and not enough air circulation. The condition can be made worse by: Sweat. Bacteria. A fungus, such as yeast. What increases the risk? This condition is more likely to occur if you have moisture in your skin folds. You are more likely to develop this condition if you: Have diabetes. Are overweight. Are not able to move around or are not active. Live in a warm and moist climate. Wear splints, braces, or other medical devices. Are not able to control your bowels or bladder (have incontinence). What are the signs or symptoms? Symptoms of this condition include: A pink or red skin rash in the skin fold or near the skin fold. Raw or scaly skin. Itchiness. A burning feeling. Bleeding. Leaking fluid. A bad smell. How is this diagnosed? This condition is diagnosed with a medical history and physical exam. You may also have a skin swab to test for bacteria or a fungus. How is this treated? This condition may be treated by: Cleaning and drying your skin. Taking an antibiotic medicine or using an antibiotic skin cream for a bacterial infection. Using an antifungal cream on your skin or taking pills for an infection that was caused by a fungus, such as yeast. Using a steroid ointment to relieve itchiness and irritation. the skin fold with a clean cotton cloth to absorb moisture and allow air to flow into the area. Follow these instructions at home: Keep the affected area clean and dry. Do not scratch your skin. Stay in a cool environment as much as possible. Use an air conditioner or fan, if available. Apply [id number] and prescription medicines only as told by your health care provider. If you were prescribed an antibiotic medicine, use it as told by your health care provider. Do not stop using the antibiotic even if your condition improves. Keep all follow-up visits as told by your health care provider. This is important. How is this prevented? Maintain a healthy weight. Take care of your feet, especially if you have diabetes. Foot care includes: Wearing shoes that fit well. Keeping your feet dry. Wearing clean, breathable socks. Protect the skin around your groin and buttocks, especially if you have incontinence. Skin protection includes: Following a regular cleaning routine. Using skin protectant creams, powders, or ointments. Changing protection pads frequently. Do not wear tight clothes. Wear clothes that are loose, absorbent, and made of cotton. Wear a bra that gives good support, if needed. Shower and dry yourself well after activity or exercise. Use a power hair clipper on a cool setting to dry between skin folds, especially after you bathe. If you have diabetes, keep your blood sugar under control. Contact a health care provider if: Your symptoms do not improve with treatment. Your symptoms get worse or they spread. You notice increased redness and warmth. You have a fever. Summary Intertrigo is skin irritation or inflammation (dermatitis) that occurs when folds of skin rub together. This condition is caused by heat, moisture, rubbing (friction), and not enough air circulation. This condition may be treated by cleaning and drying your skin and with medicines. Apply mndj-rfe-uvxfarh and prescription medicines only as told by your health care provider. Keep all follow-up visits as told by your health care provider. This is important. This information is not intended to replace advice given to you by your health care provider. Make sure you discuss any questions you have with your health care provider. Document Revised: 06/07/2022 Document Reviewed: 01/09/2022 [employer] Patient Education 2022 [place]. Extracted from:Title: 0055C Clinic - Annual visit/ulcerative colitis/osteoporosis Author: KRISHAN CEJA MD Date: 05/23/23 1. A nnual wellness exam Reviewed most recent labs, imaging, h istory, and prev med. ROS and physical exam unremarkable. Discussed diet and exercise recommendations (Low carb diet, Mediterranean diet, whole food plant based as options). 150 min/wk vigorous exercise per ACC/AHA. Preventative Medicine: # General Wellness. -Breast CA Screening: Birads 2021; due for repeat -Cervical CA Screening: s/p H ysterectomy -Colon CA Screening: colitis 2014 no polyps 3 yr f/u but lost to f/u, referral placed -Lung CA: D oes not meet criteria (non-smoker) -Osteoporosis Screening: Known osteoporosis (osteopenia with high FRAX risk); last scan in 2021 -AAA Screening: Not indicated as patient is female -Diabetes Screening: Patient is K nown pre-diabetic (discussed in assessment/plan) -Lipid Screening: O n statin -ASCVD: 14.4% -Hepatitis C (lifetime): N egative (07/01/2014) # Vaccinations: -Influenza: Advised to complete annually -Pneumococcal: PCV13: 09/10/2018 PPSV23: 12/21/2020 X2 -Tetanus: Last 03/07/2018 -Zoster: 05/11 2021 -COVID: J&J 06/11/2020, Booster on 02/26/2021 2. E ssential hypertension Goal <130/80 per ACC/AHA. Home readings and clinic at goal; asymptomatic. B MP unremarkable. - continue losartan 50 mg daily - Advised following the DASH diet or a diet low in sodium (<2400mg sodium daily) - Advised to keep daily blood pressure log and to call if readings are consistently above or below goal for >3 days or if symptoms develop 3. H yperlipidemia LDL 79. ASCVD risk: 14.4%. On appropriate moderate intensity statin for primary prevention. - Atorvastatin 20 mg at bedtime. 4. P rediabetes Well controlled with no medications. Last A1c was: 6.1%, goal A1c < 6.5%. To assist with glycemic control and cardiovascular risk, patient should exercise at least 150 min/week. - Reduce processed sugar and carbohydrates - Annual A1c 5. O steoporosis CT bone scan in 2021 showed osteopenia with F RAX scores of 20% a nd 5%, respectively. Vitamin D was 25 at the time. She was advised to start alendronate, but she did not due to concerns about taking it on an empty stomach since she already has to take levothyroxine by itself on an empty stomach. Given low vitamin D, there is the possitibility that she will have some improvement with normalization. - Will recheck vitamin D as well as PTH and SPEP (CMP already obtained). - Virtual f/u depending on when labs return - If vitamin D is improved, will consider starting alendronate, Prolia, or rechecking bone scan (she declines referral to a specialist at this time) Ordered: Protein Electrophoresis Serum [id number] PTH Intact+Calcium [id number] Vitamin D 25 Hydroxy Level 6. H ypothyroidism Current Synthroid dosing is at 50mcg daily, with most recent TSH of 1.240. Patient denies symptoms of hypothyroidism (constipation, dry skin, hair loss, etc.) o r hyperthyroidism (fast heart rate, palpitations, diarrhea, anxiety). - Continue current therapy 7. I ntertrigo Present over the lower abdominal skin fold. - Terbinafine cream provided for 2 to 4 wks - Education provided Ordered: terbinafine topical(terbinafine 1% topical cream), 1 appl(s), Topical, BID, Apply to affected area for at least 2 weeks but no more than 4 weeks., # 30 g, 1 total refill(s), Acute, 1 appl(s) Topical BID,Instr:Apply to affected area for at least 2 weeks but no more than 4 weeks., [facility] 8. U lcerative colitis Previously in remission but she reports new bloody bowel movements consistent with prior flares. Referral placed to re-establish care. Ordered: Referral Request 2.0 Patient encouraged to return to clinic, present to UCC or ER for persistent worsening or development of other concerning symptoms. Patient cites understanding and agrees with plan of care. A total of 40 minutes was spent on this visit reviewing previous notes, counseling the patient on the listed diagnoses, reviewing/ordering tests, adjusting medications, and documenting the findings in this note. Krishan Ceja MD Capt, [address] [facility], [facility] Internal Medicine Staff Physician Extracted from:Title: 0055C Clinic - Medication refills (virtual) Author: KRISHAN CEJA MD Date: 05/15/23 1. O ther specified counseling Medications reconciled and refilled. She has annual labs ordered and will see tamara magana on the for an annual appt. She never started alendronate for her osteoporosis due to concerns of having to take it on an empty stomach. We will discuss more at out appointment next week. Ordered: atorvastatin(atorvastatin 20 mg oral tablet), 1 tab(s), Oral, Daily, for cholesterol, # 90 tab(s), 3 total refill(s), Maintenance, 1 tab(s) Oral Daily,Instr:for cholesterol, Pharmacy: [facility] [Not filled] diclofenac topical(diclofenac 1% topical gel), See instructions, Apply 2 grams (upper extremities) or 4 grams (lower extremities) to affected area topically four times daily as needed for pain. Max total body dose of 32 grams per day, # 100 g, 3 total refill(s), Maintenance, Apply 2 grams (upper e... EPINEPHrine(EpiPen 2-Phillip 0.3 mg injectable kit), See Instructions, Inject 1 pen into muscle of mid-outer thigh as needed for allergic emergency. Seek medical attention. May repeat dose with new pen after 5 minutes if symptoms persist, # 1 EA, 1 total refill(s), Maintenance, Inject 1 pen into muscle... [ fluticasone nasal(fluticasone 50 mcg/inh nasal spray), 100 mcg, Nostril-Both, Daily, # 16 g, 5 total refill(s), Maintenance, 100 mcg Nostril-Both Daily, Pharmacy: [facility] [Not filled] folic acid(folic acid 1 mg oral tablet), 1 tab(s), Oral, Daily, # 90 tab(s), 3 total refill(s), Maintenance, 1 tab(s) Oral Daily, Pharmacy: [facility] [Not filled] levothyroxine(levothyroxine 50 mcg oral tablet), 1 tab(s), Oral, Daily, for thyroid, # 90 tab(s), 3 total refill(s), Maintenance, 1 tab(s) Oral Daily,Instr:for thyroid, Pharmacy: [facility] [Not filled] losartan(losartan 50 mg oral tablet), 1 tab(s), Oral, Daily, for blood pressure, # 90 tab(s), 3 total refill(s), Maintenance, 1 tab(s) Oral Daily,Instr:for blood pressure, Pharmacy: [facility] [Not filled] Orders: TSH w/ Reflex FT4 and Total T3 This appointment was performed virtually (via telephone). Patient s name and were verified prior to beginning the encounter for security purposes. Patient encouraged to return to clinic, present to UCC or ER for persistent worsening or development of other concerning symptoms. Patient cites understanding and agrees with plan of care. A total of 20 minutes was spent on this visit reviewing previous notes, counseling the patient on the listed diagnoses, reviewing/ordering tests, adjusting medications, and documenting the findings in this note. Krishan Ceja MD Capt, [address] [facility], [facility] Internal Medicine Staff Physician Extracted from:Title: [facility] Office Clinic Note Author: GUERLINE YING, DO Date: 04/17/23 1. 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 Recommend nightly use of estrogen cream vaginally for treatment, followed by 2-3 times per week thereafter. All questions answered to patient's apparent satisfaction. Follow-up in 1 month to review symptoms. Ordered: conjugated estrogens topical(conjugated estrogens 0.625 mg/g vaginal cream with applicator), 0.5 g, Vaginal, every evening, Apply 0.5g vaginally every night for 2 weeks, then twice weekly thereafter, # 30 g, 3 total refill(s), Maintenance, 0.5 g Vaginal every evening,Instr:Apply 0.5g vaginally every night for 2 weeks, then twice weekly therea... 2. P ostmenopausal atrophic vaginitis Ordered: conjugated estrogens topical(conjugated estrogens 0.625 mg/g vaginal cream with applicator), 0.5 g, Vaginal, every evening, Apply 0.5g vaginally every night for 2 weeks, then twice weekly thereafter, # 30 g, 3 total refill(s), Maintenance, 0.5 g Vaginal every evening,Instr:Apply 0.5g vaginally every night for 2 weeks, then twice weekly therea... 12/03/[phone] Functional Status Combined list of recent functional and cognitive assessments recorded at [facility] [employer] [facility] ([facility]VA Functional Stephen Measurement (FIM) Scale: 1 = Total Assistance (Subject = 0% +), 2 = Maximal Assistance (Subject = 25% +), 3 = Moderate Assistance (Subject = 50% +), 4 = Minimal Assistance (Subject = 75% +), 5 = Supervision, 6 = Modified Stephen (Device), 7 = Complete Stephen (Timely, Safely). Assessment Date/Time Source Assessment Type Assessment Skill Assessment Score Assessment Details No data available for this section
--- OUTSIDE RECORDS SUMMARY | 2024-12-03 10:28 | XMS_ITS | Clinical Summary ---
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 Active losartan (COZAAR) 50 mg tablet Take 50 mg by mouth daily Active atorvastatin (LIPITOR) 20 mg tablet Take 20 mg by mouth daily Active sulfaSALAzine (AZULFIDINE) 500 mg tablet Take 500 mg by mouth 2 (two) times a day Active folic acid (FOLVITE) 1 mg tablet Take 1 mg by mouth daily Active aspirin 81 mg enteric coated tablet Take 81 mg by mouth daily Active cinnamon bark-chromium picolin 500-100 mg-mcg capsule Take by mouth A ctive cetirizine (ZyrTEC) 10 mg tablet Take 10 mg by mouth as needed Active fluticasone propionate (FLONASE) 50 mcg/actuation nasal spray Administer 1 spray into each nostril daily Active acetaminophen (TYLENOL) 325 mg tablet Take 650 mg by mouth every 6 (six) hours as needed for pain Active sykdf-[id number]-guf-epa -dpa-fish oil 1,050-1,200 mg capsule 1 capsule Active apple cider vinegar 300 mg tablet Take by mouth 625 mg Active calcium carbonate-vitam in D3 500 mg(1,250mg) -400 unit chewable tablet Take 1 tablet by mouth daily Active glucosamine HCl/chondroitin lorenzo (GLUCOSAMINE-CH ONDROITIN ORAL) Take by mouth Active Active Problems Problem Noted Date Diagnosed Date Mixed hyperlipidemia 10/13/2021 Abnormal EKG 06/14/2020 HTN (hypertension), benign 06/14/2020 Acquired hypothyroidism 06/14/2020 Class 1 obesity without seri ous comorbidity with body mass index (BMI) of 34.0 to 34.9 in adult 06/14/2020 Ulcerative colitis 06/14/2020 Resolved Problems Problem Noted Date Diagnosed Date Resolved Date Dyslipidemia 06/14/2020 10/13/2021 Surgical History Surgery Date Site/Laterality Comments ANKLE SURGERY TUBAL LIGATION HYSTERECTOMY Medical History Medical History Date Comments Hypertension Thyroid disease Obesity Hyperlipidemia Acid indigestion Family History Medical History Relation Name Comments NonHodgerins Lymphoma Brother Heart attack Father Stroke Mother Relation Name Status Comments Brother (Age 69) Father (Age 78) Mother (Age 78) Sister Alive Social History Tobacco Use Types Packs/Day Years Used Date Smoking Tobacco: Never Smokeless Tobacco: Never Personal Safety Answer Date Recorded Getting School Help Needed Not on file 04/07 Comments Unknown Sex and Gender Information Value Date Recorded Sex Assigned at Not on file Legal Sex Female 5:36 AM L D RN Gender Identity Not on file Sexual Orientation Not on file Obstetrics History Last Filed Vital Signs Vital Sign Reading Time Taken Comments Blood Pressure 120/70 10/13/2021 10:53 AM CDT Pulse 81 10/13/2021 10:53 AM CDT Temperature 36.2 C (97.1 F) 06/16/2020 11:09 AM L D RN Respiratory Rate - - Oxygen Saturation 98% 10/13/2021 10:53 AM CDT Inhaled Oxygen Concentration - - Weight 97.5 kg (215 lb) 10/13/2021 10:53 AM CDT Height 170.2 cm (5' 7) 10/13/2021 10:53 AM CDT Body Mass Index 33.67 10/13/2021 10:53 AM CDT Plan of Treatment Not on file Insurance MEDICARE FOR LIFE MEDICARE FOR LIFE Care Teams Tube Fitter Relationship Specialty Start Date End Date Rolando Martinez MD [address] [place] [address] PCP - General Internal Medicine 05/25/20
[2024-12-03 10:50] LABS: Alanine Aminotransferase 33 U/L (6-35); Albumin Level 4.0 g/dL (3.5-5.1); Alkaline Phosphatase 59 U/L (38-126); Anion Gap 8 mmol/L (4-12); Aspartate Amino Transferase 41 U/L (14-36); Bilirubin,Total 0.3 mg/dL (0.2-1.3); Blood Urea Nitrogen 11 mg/dL (7-17); CRP < 0.5 mg/dL (<1.0); Calcium 9.3 mg/dL (8.4-10.2); Carbon Dioxide 27 mmol/L (22-30); Chloride 106 mmol/L (98-107); Estimated Glomerular Filt Rate > 60; Glucose 117 mg/dL (65-110); Potassium 3.9 mmol/L (3.4-5.0); Sodium 141 mmol/L (137-145); Total Protein 7.2 g/dL (6.3-8.2)
== END 2024-12-03 10:04 | disposition home or self-care (01) ==
PROVIDERS: PCP Nurse Practitioner Family; Visit Provider Internal Medicine Gastroenterology
DX: R10.31 Right lower quadrant pain (principal); K51.90 Ulcerative colitis, unspecified, without complications
CPT/HCPCS: 36415; 80053; 85027; 85652; 86140

== ENCOUNTER 2024-12-04 10:52 | Outpatient (CLI) | payer MEDICARE, OTHER, SELFPAY ==
--- OUTSIDE RECORDS SUMMARY | 2024-12-04 10:58 | XMS_ITS | Continuity of Care Document ---
Author Name [facility] Organization [facility] Care Team Providers Care Meal Room Hand Name Role Phone [facility] Unavailable Unavailable Problems Combined list of problems from Department of Defense and Veterans Affairs facilities. It does not include entries that were removed or entered in error. Problem Status Onset Date Problem Type Date of Resolution Comments Source Encounter for issue of repeat prescription Active 6 Condition DoD Ulcerative colitis Active 6 Condition 0055C-375 th [facility] Ulcerative colitis, unspecified, without complications Active 6 Condition DoD Allergic rhinitis Active Condition 0055 C-375 [...] deficiency Active Condition 0055C-375 th [facility] Vitamin D deficiency, unspecified Active Condition DoD Pain in leg, unspecified Active Condition DoD BEREAVEMENT WITHOUT COMPLICATIONS Active Condition DoD Outpatient Physician Consultation Active Condition DoD BEE VENOM ANAPHYLAXIS Active Condition DoD skin: a rash [as Sx] Active Condition DoD tingling (paresthesia) Active Condition DoD NONALCOHOLIC STEATOHEPATITIS Active Condition DoD OVERWEIGHT Active Condition DoD ALLERGIC RHINITIS Active Condition DoD ACROCHORDON Active Condition DoD ACUTE BRONCHITIS Inactive Condition DoD Blood Pressure Isolated Elevated Active Condition DoD HYPOTHYROIDISM SUBCLINICAL Active Condition DoD Laboratory Studies Inactive Condition Do D HYPOTHYROIDISM Active Condition DoD visit for: issue repeat prescription for medication Active Condition DoD Swelling Of Fingers Active Condition Do D visit for: issue repeat prescription Inactive Condition DoD SEBORRHEIC KERATOSIS Active Condition DoD ULCERATIVE COLITIS Active Condition DoD IRRITABLE BOWEL SYNDROME Active Condition DoD HEMATURIA Active Condition DoD DEPRESSION Active Condition DoD NORMAL ROUTINE HISTORY AND PHYSICAL ADULT (18-65) Active Condition discussed no need for paps but still needs clinical breast exam yearly, preferably prior to mammo DoD Hysterectomy Active Condition DoD RESTLESS LEGS SYNDROME Active Condition DoD IMPAIRED FASTING GLUCOSE Active Condition Fasting glucose has improved somewhat. DoD Preventive Medicine Estab Patient Checkup Adult 40-64 Inactive Condition DoD accidental puncture / laceration during a procedure Active Condition DoD OPEN WOUND Active Condition DoD HYPERLIPIDEMIA Active Condition Discu ssed all her lab results. Wrote rx for tricor. DoD ESOPHAGEAL REFLUX Active Condition DoD FATTY LIVER Active Condition DoD BURSITIS TROCHANTERIC Active Condition DoD Administrative Evaluation Services Inactive Condition DoD OSTEOPENIA Active Condition DoD visit for: administrative purpose Inactive Condition DoD Need For Vaccination Hepatitis B Inactive Condition DoD Need For Vaccination Hepatitis A Inactive Condition DoD TENDONITIS GLUTEAL Active Condition DoD visit for: routine eye exam Inactive Condition DoD PRESBYOPIA Active Condition DoD ASTIGMATISM Active Condition DoD REFRACTIVE ERROR - MYOPIA Active Condition LE DoD visit for: screening malignant neoplasm colon Inactive Condition DoD ESOPHAGITIS CHRONIC REFLUX Active Condition DoD Serum Enzyme Levels - AST (SGOT) Elevated Active Condition DoD Serum Enzyme Levels - ALT (SGPT) Elevated Active Condition DoD Metabolic Tests Nonspecific Elevation Of Transaminase Levels Active Condition Labs due first week of February 2005. please refer to previous notes in [facility] for more information DoD Medications Combined list of outpatient medications from [...] nce Oral (given by mouth) Discont inued 05/23/20232023 0055C-3 [facility] Advil Oral, every 6 hr, 0 total refill(s ), Maintena nce Oral (given by mouth) Ordered 2023 0055C-3 [facility] alendronate 70 mg oral tablet TAKE ONE [...] 12 tab(s), 3 total refill(s ), Maintena [facility], Pharmacy : [facility] Oral (given by mouth) Discont inued 03/04/2024 4 2023 12.0 0055C-3 [facility] Edson alendronate 70 mg oral tablet 1 tab(s), Oral, every week, with 6 to 8 ounces plain water, at least 30 minutes before first food, beverage , or medicati on of the day Ok to take with Synthroi d, # 12 tab(s), 3 total refill(s ), Maintena [facility], Pharmacy : [facility] Oral (given by mouth) Ordered 5 2023 12.0 0055C-3 [facility] Edson aspirin 81 mg oral delayed release tablet 1 tab(s), Oral, Daily, # 90 tab(s), 0 total refill(s ), Maintena moe Oral (given by mouth) Ordered 2023 90.0 0055C-3 [facility] Edson aspirin 81 mg oral delayed release tablet TAKE ONE TABLET BY MOUTH EVERY DAY *SWALLOW WHOLE - DO NOT CHEW*, # 90 EA, 3 total refill(s ), Acute Complet ed 05/08/2023 3 2023 90.0 Ambulat ory Pharmac y atorvastati n 20 mg oral tablet 1 tab(s), Oral, Daily, for choleste rol, # 90 tab(s), 3 total refill(s ), Maintena moe, Pharmacy : [facility] Oral (given by mouth) Discont inued 03/04/2024 4 2023 90.0 0055C-3 [facility] Edson atorvastati n 20 mg oral tablet 1 tab(s), Oral, Daily, for choleste rol, # 90 tab(s), 3 total refill(s ), Maintena nce, Pharmacy : [facility] Oral (given by mouth) Ordered 5 2023 90.0 [facility] atorvastati n 20 mg tablet See Instruct ions, # 90 EA, 2 total refill(s ), Acute Complet ed 05/08/2023 3 2023 90.0 Ambulat ory Pharmac y calcium (as carbonate)- vitamin D 600 mg-20 mcg (800 intl units) oral tablet, chewable 1 tab(s), Chew, BID, # 60 tab(s), 0 total refill(s ), Maintena nce Chew Ordered 2023 60.0 [facility]55[facility] cetirizine 10 mg tablet See Instruct ions, # 90 EA, 2 total refill(s ), Acute Complet ed 05/08/2023 3 2023 90.0 Ambulat ory Pharmac y cinnamon 1,000 mg, Oral, 0 total refill(s ), Maintena nce Oral (given by mouth) Ordered 2023 [facility] conjugated estrogens 0.625 mg/g vaginal cream with applicator 0.5 g, Vaginal, every evening, Apply 0.5g vaginall y every night for 2 weeks, then twice weekly thereaft er, # 30 g, 3 total refill(s ), Maintena nce, Pharmacy : [facility] Vagina l (in the vagina ) Ordered 4 2023 30.0 0055C-[address] [place], [place] [address]ER[facility]ST[facility] Sandhu diclofenac 1% topical gel See instruct ions, Apply 2 grams (upper extremit ies) or 4 grams (lower extremit ies) to affected area topicall y four times daily as needed for pain. Max total body dose of 32 grams per day, # 100 g, 3 total refill(s ), Maintena nce, Pharmacy : [facility] Discont inued 03/04/2024 4 2023 100.0 0055C-[address] [place], [place] [address]CAT Edson diclofenac 1% topical gel See instruct ions, Apply 2 grams (upper extremit ies) or 4 grams (lower extremit ies) to affected area topicall y four times daily as needed for pain. 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 Seek medical attentio n. 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 : [facility] Oral (given by mouth) Complet ed 04/20/2023 4 2023 14.0 0055C-3 75[facility] Edson fluticasone 50 mcg/inh nasal spray 100 mcg, Nostril- Both, Daily, # 16 g, 5 total refill(s ), Maintena nce, Pharmacy : [facility] Nostri l-Both (into the nose) Discont inued 03/04/2024 4 2023 16.0 0055C-3 [facility] fluticasone 50 mcg/inh nasal spray USE 2 SPRAYS IN EACH NOSTRIL DAILY, # 16 g, 3 total refill(s ), Acute Complet ed 12/13/20222022 16.0 Ambulat ory Pharmac y fluticasone 50 mcg/inh nasal spray 100 mcg, Nostril- Both, Daily, # 48 g, 3 total refill(s ), Maintena nce, Pharmacy : [facility] Nostri l-Both (into the nose) Ordered 5 2023 48.0 0055C-[address] [place] [address] Edson folic acid 1 mg oral tablet 1 tab(s), Oral, Daily, # 90 tab(s), 3 total refill(s ), Maintena nce, Pharmacy : [facility] Oral (given by mouth) Discont inued 03/04/2024 4 2023 90.0 0055C-3 [facility] folic acid 1 mg oral tablet 1 tab(s), Oral, Daily, # 90 tab(s), 3 total refill(s ), Maintena nce, Pharmacy : [facility] Oral (given by mouth) Ordered 5 2023 90.0 0055C-3 75[facility] folic acid 1 mg tablet See Instruct ions, # 90 EA, 2 total refill(s ), Acute Complet ed 05/08/2023 3 2023 90.0 Ambulat ory Pharmac y glucosamine Oral, 0 total refill(s ), Maintena nce Oral (given by mouth) Ordered 2023 0055C-3 [facility] Edson levothyroxi ne (Synthroid) 50 mcg tablet See dose instruct ions in comments , # 90 EA, 2 total refill(s ), Acute Complet ed 05/08/2023 3 2023 90.0 Ambulat ory Pharmac y levothyroxi ne 25 mcg oral tablet 1 tab(s), Oral, Daily, for thyroid, # 90 tab(s), 3 total refill(s ), Maintena moe, Pharmacy : [facility] Oral (given by mouth) Ordered 5 2023 90.0 0055C-3 75[facility] Edson levothyroxi ne 50 mcg oral tablet 1 tab(s), Oral, Daily, for thyroid, # 90 tab(s), 3 total refill(s ), Maintena moe, Pharmacy : [facility] Oral (given by mouth) Discont inued 03/04/2024 4 2023 90.0 0055C-3 [facility] losartan 50 mg oral tablet 1 tab(s), Oral, Daily, for blood pressure , # 90 tab(s), 3 total refill(s ), Maintena moe, Pharmacy : [facility] Oral (given by mouth) Discont inued 03/04/2024 4 2023 90.0 0055C[facility]3 [facility] mg oral tablet 1 tab(s), Oral, Daily, for blood pressure , # 90 tab(s), 3 total refill(s ), Maintena nce, Pharmacy : [facility] Oral (given by mouth) Ordered 5 2023 90.0 0055C-3 [facility] losartan 50 mg tablet See Instruct ions, # 90 EA, 2 total refill(s ), Acute Complet ed 05/08/2023 3 2023 90.0 Ambulat ory Pharmac y [place]-3 oral capsule 0 total refill(s ), Maintena [...] 1 total refill(s ), Acute, Pharmacy : [facility] Topica l (on the skin) Complet [...] total refill(s ), Maintena nce, Pharmacy : [facility] Oral (given by mouth) Ordered 5 2024 56.0 0055C-3 [facility] Vitamin D3 125 mcg (5000 intl units) oral capsule 1 cap(s), Oral, Daily, with food, # 60 cap(s), 0 total refill(s ), Maintena nce, Pharmacy : [facility] Oral (given by mouth) Discont inued 03/11/2024 4 2023 60.0 0055C-3 [facility] Vitamin D3 50 mcg (2000 intl units) oral capsule 1 cap(s), Oral, Daily, 0 total refill(s ), Maintena nce Oral (given by mouth) Ordered 2023 0055C[facility] Allergies, Adverse Reactions, Alerts Combined [...] Allergy to substance (disorder) Anaphylaxis active [address] [place] [address] [employer] ([facility] DARVON (PROPOXYPHEN E HCL) Drug allergy (disorder) Unknown active [address] [place] [address] Edson [facility] ([facility]) propoxyphene Propensity to adverse reactions to drug Unknown Active 8 Unknown Organiza tion Immunizations Combined list of available immunizations from the Department of Defense and Veterans Affairs facilities. Immunization Series Date Given Administered By Site Reaction Lot Number CVX Code Drug Lace Mender Status Comments Source influenza, high-dose seasonal, quad, pf 2022 JOSHUA 197 complet ed Result Comment: Route: Unknown Manufactu rer: OT ([facility]) 0055C-[address] [place] [address] influenza virus vaccine, inactivated 2022 GLORIARBURAKCITONY MAKUZZI 88 complet ed Result Comment: [facility]: [id number] Ambulat ory Pharmac y zoster vaccine, [...] e, 23 valent 2020 zzLef t Arm [id number] [employer] complet ed pneumococ rebeca polysacch aride, 23 valent 12/21/20 Given Ambulat ory Pharmac y pneumococcal polysaccharid e vaccine, 23 valent 1 2020 Unknown, Provider [id number] 33 Merck (MSD) complet ed pneumococ rebeca polysacch aride vaccine, 23 valent DoD zoster vaccine recombinant 1 2020 Unknown, Provider [id number] [address] [place] [address] (SKB) complet ed zoster vaccine recombina nt DoD influenza virus vaccine, unspecified 2020 TRANSCR IBED 88 complet ed influenza virus vaccine, unspecifi ed 12/08/20 Given Ambulat ory Pharmac y influenza, high-dose seasonal, quad, pf 2020 ALEXRGARCIAFA NTAUZZI 197 complet ed Result Comment: Unit: Unknown Manufactu rer: () Ambulat ory Pharmac y influenza, high-dose, quadrivalent 2020 AIME, () Not Given influenza , high-dose , quadrival ent DoD influenza virus vaccine, unspecified formulation 1 2020 Unknown, Provider 88 Transcribed (TRS) complet ed influenza virus vaccine, unspecifi ed formulati on DoD SARS-CoV-2 (COVID-19) Ad26 vaccine, rec 2020 TRANSCR IBED 212 complet ed SARS-CoV- 2 (COVID-19 ) Ad26 vaccine, rec 06/11/20 Given Ambulat ory Pharmac y SARS-COV-2 (COVID-19) vaccine, vector non-replicati ng, recombinant spike protein-Ad26, preservative free, 0.5 mL 1 2020 Unknown, Provider 212 Chris (DOLORES) complet ed SARS-COV- 2 (COVID-19 ) vaccine, vector non-repli cating, recombina nt spike protein-A d26, preservat eduardo free, 0.5 mL DoD influenza, high-dose seasonal, quad, pf 2019 ALEXRGARCIAFA NTAUZZI 197 complet ed Result Comment: Unit: Unknown Manufactu rer: () Ambulat ory Pharmac y influenza, high-dose, quadrivalent 2019 ALUL, () Not Given influenza , high-dose , quadrival ent DoD pneumococcal 13-valent conjugate (PCV13) 2018 zzRig ht Thigh [id number] Versafe complet ed pneumococ rebeca 13-valent conjugate (PCV13) 09/10/18 Given Ambulat ory Pharmac y pneumococcal conjugate vaccine, 13 valent 1 2018 Unknown, Provider [id number] [facility] ([facility]) complet ed pneumococ rebeca conjugate vaccine, 13 valent DoD tetanus-dipht h toxoids (Td) adult/adol 2017 zzRig ht Arm [id number] 09 sanofi pasteur complet ed tetanus-d iphth toxoids (Td) adult/ado l 03/07/18 Given Ambulat ory Pharmac y tetanus and diphtheria toxoids, adsorbed, preservative free, for adult use (2 Lf of tetanus toxoid and 2 Lf of diphtheria toxoid) 1 2017 Unknown, Provider [id number] 09 Sanofi Pasteur ([facility]) complet ed tetanus [...] influenza virus vaccine,split 2007 zzLef t Arm [id number] 15 sanofi pasteur complet ed influenza virus vaccine,s plit 03/11/08 Given Ambulat ory Pharmac y hepatitis B adult vaccine 2007 zzLef t Arm [id number] 43 GlaxoSmithKli ne complet ed hepatitis B adult vaccine 03/11/08 Given Ambulat ory Pharmac y HepB, Adult 2007 JOSHUA [id number] 43 complet ed Result Comment: Route: Intramusc ular(IM) Manufactu rer: Douglas magana (EDVIN) [facility] influenza virus vaccine, split virus (incl. purified surface antigen)-reti red CODE 1 2007 Unknown, Provider [id number] 15 Sanofi Pasteur ([facility]) complet ed influenza virus vaccine, split virus (incl. purified surface antigen)- retired CODE DoD hepatitis B vaccine, adult dosage 3 2007 Unknown, Provider [id number] 43 [facility] ([facility]) complet ed hepatitis B vaccine, adult dosage DoD pneumococcal polysaccharid e, 23 valent 2006 zzLef t Arm [id number] 33 Merck & Company Inc complet ed pneumococ rebeca polysacch aride, 23 valent 03/19/07 Given Ambulat ory Pharmac y pneumococcal polysaccharid e vaccine, 23 valent 1 2006 Unknown, Provider [id number] 33 Merck (MSD) complet ed pneumococ rebeca polysacch aride vaccine, 23 valent DoD influenza virus vaccine,split 2006 Liborio Arm [id number] 15 GlaxoSmithKli ne complet ed influenza virus vaccine,s plit 03/05/07 Given Ambulat ory Pharmac y influenza virus vaccine, split virus (incl. purified surface antigen)-reti red CODE 1 2006 Unknown, Provider [id number] 15 [facility] ([facility]) complet ed influenza virus vaccine, split virus (incl. purified surface antigen)- retired CODE [facility] tetanus-dipht h toxoids (Td) adult/adol 2006 09 [...] 2 Lf of diphtheri a toxoid) DoD hepatitis A-hepatitis B vaccine 2005 zzLef t Arm [id number] 5AA 104 GlaxoSmithKli ne complet ed hepatitis A-hepatit is B vaccine 10/11/05 Given Ambulat ory Pharmac y tetanus, diphtheria, acellular pertu is 2005 zzRig ht Arm [id number] 115 sanofi pasteur complet ed tetanus, diphtheri a, acellular pertussis 10/11/05 Given Ambulat ory Pharmac y hepatitis A and hepatitis B vaccine 2 2005 Unknown, Provider [id number] 5AA 104 [employer] ([facility]) complet ed hepatitis A and hepatitis B vaccine DoD tetanus toxoid, reduced diphtheria toxoid, and acellular pertu is vaccine, adsorbed 1 2005 Unknown, Provider [id number] 115 Sanofi Pasteur ([facility]) complet ed tetanus toxoid, reduced diphtheri a toxoid, and acellular pertussis vaccine, adsorbed DoD hepatitis A-hepatitis B vaccine 2005 zzLef t Arm [id number] 3AA 104 ZenefitsoSmEnteyeKli ne complet ed hepatitis A-hepatit is B vaccine 09/06/05 Given Ambulat ory Pharmac y hepatitis A and hepatitis B vaccine 1 2005 Unknown, Provider [id number] 3AA 104 [employer] ([facility]) complet ed hepatitis A and hepatitis B vaccine DoD influenza virus vaccine,split 2002 zzLef t Arm [id number] Novartis Pharmaceutica ls complet ed influenza virus vaccine,s plit 02/16/03 Given Ambulat ory Pharmac y influenza virus vaccine, split virus (incl. purified surface antigen)-reti red CODE 1 2002 Unknown, Provider [id number] 15 [employer] (PWJ) complet ed [...] TSH result is > 4.2 uIU/mL 5600A-U [facility] Chemistry Vitamin D 25 OH 26 [...] n, and other findings. Testing performed by [employer] tom ce. 5600A-U [facility] Chemistry eGFR CKD [...] Severe decrease <15 Kidney failure 0055A-3 [facility] Chemistry Hemoglobin A1c 6.2 % 4.0 - [...] the patient and ordering Hemoglobin Electrophor esis. [facility]on Chemistry eAvg Glucose 131 mg/dL 02/[address] [place], [place] [address]Pinpoint MD Edson Chemistry Cholesterol Total 144 mg/dL 02/25 N Interpretiv e Data: According to the [place] [employer] : AGES 0-19: Desirable: < 170 mg/dL Borderline High: 170-199 mg/dL High Blood Cholesterol : >/= 200 mg/dL ADULTS: Desirable < 200 mg/dL Borderline High: 200-239 mg/dL High Blood Cholesterol : >/= 240 mg/dL [address] [place] [address] Edson Chemistry Chol/HDL 3 mg/dL 02/[address] [place], [place] [address]Pinpoint MD Edson Chemistry HDL Cholesterol 46 mg/dL 40 - 59 02/25 N Interpretiv e Data: HDL (HIGH DENSITY LIPOPROTEIN ): ADULTS: Low: < 40 mg/dL High: >/= 60 mg/dL AGES 0 -19: Low: < 40 mg/dL Borderline Low: 40 - 45 mg/dL Acceptable: > 45 mg/dL [address] [place], [place] [address] Chemistry LDL/HDL 2 02/[address] [place] [address] Edson Chemistry Triglycerid es 183 mg/dL 7 - 149 02/25 H Interpretiv e Data: AGES 0-9: Desirable: < 75 mg/dL Borderline High: 75-99 mg/dL High: >/= 100 mg/dL AGES 10-19: Desirable: < 90 mg/dL Borderline High: 90-129 mg/dL High: >/= 130 mg/dL ADULTS: Desirable: < 150 mg/dL Borderline High: 150-199 mg/dL High: >/= 240 mg/dL Very High: >/= 500 mg/dL -[address] [place] [address] Chemistry LDL 80 mg/dL 100 - 130 02/25 L Interpretiv e Data: AGES 0-19: Desirable: < 110 mg/dL Borderline High: 110-129 mg/dL High: >/= 130 mg/dL ADULTS: Desirable: <100 mg/dL Near/above optimal: 100-130 mg/dL Borderline High: 131-159 mg/dL High: 160-189 mg/dL Very High: 190 mg/dL [address] [place] [address] Chemistry CO2 24 mmol/L 22 - 29 02/25 N 005-[address] [place] [address] Chemistry Creatinine Level 0.70 mg/dL 0.57 - 1.11 02/25 N 005-[address] [place] [address] Chemistry Potassium Lvl 4.0 mmol/L 3.5 - 5.1 02/25 N 5A-[address] [place] [address] Chemistry Glucose Lvl 131 mg/dL 74 - 99 02/25 H 5A-[address] [place] [address] Chemistry Sodium 141 mmol/L 136 - 145 02/25 N 0055A-[address] [place] [address] Chemistry Albumin 3.60 g/dL 3.50 - 5.20 02/25 N 0055A-[address] [place] [address] Chemistry Phosphorus 3.1 mg/dL 2.3 - 4.7 02/25 N 0055A-[address] [place] [address] Chemistry BUN 12 mg/dL 7 - 20 02/25 N 0055A-[address] [place] [address] Chemistry AGAP 8.00 0.00 - 15.00 02/25 N 0055A-[address] [place] [address] Chemistry Chloride 109 mmol/L 98 - 107 02/25 H 5A-[address] [place] [address] Chemistry Calcium 10.0 mg/dL 8.4 - 10.2 02/25 N 0055A-[address] [place] [address] Chemistry BUN/Creat Ratio 17 mg/dL 12 - 20 02/25 N 0055A-[address] [place] [address] Chemistry Vitamin D 25 OH 27.6 ng/mL [...] n, and other findings. Testing performed by [facility] tom avitia. 5600A-U [facility] Chemistry TSH [...] % 11.0 - 14.9 02/25 N 0055A-[facility] Edson Hematolog y RBC 4.4 x10^6/mc [...] % 34 - 46 02/25 N -[address] [place] [address]- Edson Chemistry ALT 28 U/L 5 - 55 02/25 N - [address] [place] [address] Chemistry AST 29 U/L 5 - 34 02/25 N - [address] [place] [address] Chemistry Alk Phos 54 U/L 40 - 150 02/25 N - [address] [place] [address] Chemistry Bilirubin Direct 0.2 mg/dL 0.1 - 0.5 02/25 N - [address] [place] [address]- [place] Chemistry Bilirubin Total 0.4 mg/dL 0.2 - 1.2 02/25 N - [address] [place] [address]- Edson Chemistry Protein Total 7.1 g/dL 6.4 - 8.3 02/25 N - [address] [place] [address] Hematolog y Monocyte % Auto 10 % 1 - 12 02/25 N - [address] [place] [address] Hematolog y Neutro Absolute 2.3 x10^3/mc L 2.0 - 7.0103 02/25 N - [address] [place] [address] Hematolog y Sac Absolute 0.5 x10^3/mc L 0.2 - 0.8103 02/25 N - [address] [place] [address] Hematolog y Neutrophil % Auto 48.0 % 46.0 - 77.0 02/25 N - [address] [place] [address] Hematolog y Baso Absolute 0.0 x10^3/mc L 0.0 - 0.1103 02/25 N 005- [address] [place] [address] Hematolog y Lymphocyte % Auto 39.1 % 20.0 - 40.0 02/25 N 005-[address] [place] [address] Hematolog y Lymph Absolute 1.9 x10^3/mc L 1.2 - 4.0103 02/25 N -[address] [place] [address] Hematolog y Eos Absolute 0.1 x10^3/mc L 0.0 - 0.7103 02/25 N 005- [address] [place] [address]- Edson Hematolog y Eosinophil % Auto 2 % 0 - 5 02/[address] [place] [address] Hematolog y Basophil % Auto 0.4 % 0.0 - 2.5 02/[address] [place] [address] Chemistry Intact PTH LC COMMENT 05/23 Result Comment: Interpretat ion Intact PTH Calcium (pg/mL) (mg/dL) Normal 15 - 65 8.6 - 10.2 Primary Hyperparath yroidism >65 >10.2 Secondary Hyperparath yroidism >65 <10.2 Non-Parathy roid Hypercalcem ia <65 >10.2 Hypoparathy roidism <15 < 8.6 Non-Parathy roid Hypocalcemi a 15 - 65 < 8.6 Performed At: [address] [id number] Iris Hickey PhD Ph:[phone] [address] [place] [address] Chemistry PTH Intact.LC 42 pg/mL 05/[address] [place] [address] Chemistry Calcium Total.LC 9.6 mg/dL 05/[address] [place] [address] Chemistry Vitamin D 25 OH 20.3 ng/mL [...] n, and other findings. Testing performed by [facility] tom ce. 5600A-U [facility] Chemistry G-Globulin LC 0.9 g/dL 05/[address] [place] [address] Chemistry A-1-Globuli n.LC 0.2 g/dL 05/[address] [place] [address] Chemistry B-Globulin LC 0.9 g/dL 05/[address] [place] [address] Chemistry A-2-Globuli n.LC 1.0 g/dL 05/[address] [place] [address] Chemistry Albumin g/dL LC 3.5 g/dL 05/[address] [place] [address] Chemistry Protein, Total, Serum.LC 6.5 g/dL 05/[address] [place] [address] Chemistry Protein Electro Note LC COMMENT 05/23 Result Comment: Protein electrophor esis scan will follow via computer, mail, or plant controls specialist delivery. Performed At: [address] [id number] Iris Hickey PhD Ph:[id number] [address] [place] [address] Chemistry Globulin.LC 3.0 g/dL 05/[address] [place] [address] Chemistry Protein Monoclonal Jose.LC Not Observed 05/[address] [place] [address] Chemistry A/G Ratio.LC 1.2 05/[address] [place] [address] Chemistry AST 26 U/L 5 - 34 05/18 N -[address] [place] [address] Chemistry ALT 27 U/L 5 - 55 05/18 N -[address] [place] [address] Chemistry Alk Phos 86 U/L 40 - 150 05/18 N -[address] [place] [address] Chemistry BUN 10 mg/dL 7 - 20 05/18 N 5A-[address] [place] [address] Chemistry Bilirubin Total 0.4 mg/dL 0.2 - 1.2 05/18 N 5A-[address] [place] [address] Chemistry Calcium 10.0 mg/dL 8.4 - 10.2 05/18 N 5A-[address] [place] [address] Chemistry BUN/Creat Ratio 17 mg/dL 12 - 20 05/18 N 5A-[address] [place] [address] Chemistry Albumin 3.40 g/dL 3.50 - 5.20 05/18 L 5A-[address] [place] [address] Chemistry AGAP 8.00 0.00 - 15.00 05/18 N 0055A-[address] [place] [address] Chemistry Glucose Lvl 121 mg/dL 74 - 99 05/18 H - [address] [place] [address] Chemistry Creatinine Level 0.60 mg/dL 0.57 - 1.11 05/18 N - [address] [place] [address] Chemistry CO2 26 mmol/L 22 - 29 05/[address] [place] [address] Chemistry Chloride 107 mmol/L 98 - 107 05/[address] [place] [address] Chemistry Potassium Lvl 4.0 mmol/L 3.5 - 5.1 05/[address] [place] [address] Chemistry Protein Total 7.0 g/dL 6.4 - 8.3 05/[address] [place] [address] Chemistry Sodium 141 mmol/L 136 - 145 05/[address] [place] [address] Chemistry Chol/HDL 4 mg/dL 05/[address] [place] [address] Chemistry Triglycerid es 142 mg/dL 7 - 149 05/18 N Interpretiv e Data: AGES 0-9: Desirable: < 75 mg/dL Borderline High: 75-99 mg/dL High: >/= 100 mg/dL AGES 10-19: Desirable: < 90 mg/dL Borderline High: 90-129 mg/dL High: >/= 130 mg/dL ADULTS: Desirable: < 150 mg/dL Borderline High: 150-199 mg/dL High: >/= 240 mg/dL Very High: >/= 500 mg/dL [address] [place] [address] Chemistry LDL 79 mg/dL 100 - 130 05/18 L Interpretiv e Data: AGES 0-19: Desirable: < 110 mg/dL Borderline High: 110-129 mg/dL High: >/= 130 mg/dL ADULTS: Desirable: <100 mg/dL Near/above optimal: 100-130 mg/dL Borderline High: 131-159 mg/dL High: 160-189 mg/dL Very High: 190 mg/dL [address] [place] [address] Chemistry LDL/HDL 2 05/[address] [place] [address] Chemistry Cholesterol Total 138 mg/dL 05/18 N Interpretiv e Data: According to the [place] [employer] : AGES 0-19: Desirable: < 170 mg/dL Borderline High: 170-199 mg/dL High Blood Cholesterol : >/= 200 mg/dL ADULTS: Desirable < 200 mg/dL Borderline High: 200-239 mg/dL High Blood Cholesterol : >/= 240 mg/dL 5A-[address] [place] [address] Chemistry HDL Cholesterol 39 mg/dL 40 - 59 05/18 L Interpretiv e Data: HDL (HIGH DENSITY LIPOPROTEIN ): ADULTS: Low: < 40 mg/dL High: >/= 60 mg/dL AGES 0 -19: Low: < 40 mg/dL Borderline Low: 40 - 45 mg/dL Acceptable: > 45 mg/dL - 75th [facility] Chemistry eGFR CKD EPI 95 mL/min/1 .73_m2 [...] decrease 15-29 Severe decrease <15 Kidney failure [address] [place] [address]- Edson Chemistry Ur Microalb/Ur Creat Ratio WORKDAY CONSULTANT 05/18 Result Comment: Results out of detectable range of analyzer, calculation can not be performed. [address] [place] [address] Chemistry Ur Microalbumi n <5 mg/L 05/18 N Result Comment: Below detectable range of analyzer. Interpretiv e Data: To minimize intra-indiv idual variation, analysis of three random urine samples collected over the course of a week has also been recommended . [address] [place] [address] Chemistry Ur Creat 90 mg/dL 05/[address] [place] [address] Chemistry Hemoglobin A1c 6.1 % 4.0 - [...] the patient and ordering Hemoglobin Electrophor esis. [address] [place] [address] Chemistry eAvg Glucose 128 mg/dL 05/[address] [place] [address]- [facility] Hematolog y WBC 5.4 x10^3/mc L 4.0 - 11.0103 05/18 N - [address] [place], [place] [address]GRP- [facility] Hematolog y MPV 9.5 fL 7.4 - 10.4 05/[address] [place], [place] [address]GRP- [facility] Hematolog y Platelets 291.0 x10^3/mc L 150.0 - 450.0103 05/[address] [place] [address]- [facility] Hematolog y RBC 4.1 x10^6/mc L 3.6 - 5.0106 05/18 N 5A-[address] [place] [address]- [facility] Hematolog y RDW 12.6 % 11.0 - 14.9 05/18 N 5A-[address] [place] [address] Hematolog y MCV 96 fL 80 - 97 05/18 N -[address] [place] [address]- [facility] Hematolog y MCH 32 pg 28 - 33 05/18 N -[address] [place] [address]- [facility] Hematolog y MCHC 33.0 g/dL 33.0 - 36.5 05/18 N -[address] [place] [address]- [facility] Hematolog y Hemoglobin 13.0 g/dL 11.0 - 15.0 05/18 N -[address] [place] [address]- [facility] Hematolog y Hematocrit 39 % 34 - 46 05/18 N -[address] [place] [address] Chemistry TSH 1.240 mIU/L 0.270 - 4.200 05/18 N Interpretiv e Data: Recommend: TPO/Thyrope roxidase Antibody when TSH result is > 4.2 uIU/mL [id number]-U [facility] EPILAB Hematolog y Baso Absolute 0.0 x10^3/mc L 0.0 - 0.1103 05/18 N -[address] [place] [address] [facility] Hematolog y Basophil % Auto 0.6 % 0.0 - 2.5 05/18 N -[address] [place] [address] Hematolog y Neutrophil % Auto 47.0 % 46.0 - 77.0 05/18 N -[address] [place] [address] Hematolog y Monocyte % Auto 8 % 1 - 12 05/18 N -[address] [place] [address]- [facility] Hematolog y Neutro Absolute 2.5 x10^3/mc L 2.0 - 7.0103 05/18 N -[address] [place] [address]- [facility] Hematolog y Lymphocyte % Auto 40.5 % 20.0 - 40.0 05/18 H 5A-3 [facility] H[facility] y Lymph Absolute 2.2 x10^3/mc L 1.2 - 4.0103 05/18 N 0055A-[address] [place] [address] Hematolog y Sac Absolute 0.4 x10^3/mc L 0.2 - 0.8103 05/18 N 0055A-[address] [place] [address] Hematolog y Eos Absolute 0.2 x10^3/mc L 0.0 - 0.7103 05/18 N 0055A-[address] [place] [address] Hematolog y Eosinophil % Auto 3 % 0 - 5 05/18 N 0055A-[address] [place] [address] Urinalysi s UA Glucose Negative mg/dL 05/18 N 0055A-[address] [place] [address] Urinalysi s UA Leuk Esterase Negative (05/18/23 9:58 AM) 05/18 N 0055A-[address] [place] [address] Urinalysi s UA Ketones Negative mg/dL 05/18 N 0055A-[address] [place] [address] Urinalysi s UA Nitrite Negative (05/18/23 9:58 AM) 05/18 N 0055A-[address] [place] [address] Urinalysi s UA Protein Negative mg/dL 05/18 N 0055A-[address] [place] [address] Urinalysi s UA pH 6.0 *NA* (05/18/23 9:58 AM) 5 - 8 05/18 0055A-[address] [place] [address] Urinalysi s UA Spec [place] 1.020 1.001 - 1.035 05/18 N 0055A-[address] [place] [address] Urinalysi s UA RBC 0-2 /HPF 05/18 N 0055A-[address] [place] [address] Urinalysi s UA WBC 0-2 /HPF 05/18 N 0055A-[address] [place] [address] Urinalysi s UA Bili Negative (05/18/23 9:58 AM) 05/18 N 0055A-[address] [place] [address] Urinalysi s UA Urobilinoge n 0.2 E.U./dL 0.2 - 1.0.. 05/18 N 0055A-[address] [place] [address] Urinalysi s UA Epi Squam 3-4 05/185A-3 [...] ADM Date DC Date Status Disposition Source [address] [place] [address] Edson FERNANDES ([facility]Sco tt [facility] Tm Blue) TELE CONSULT [id number] lab results request KP Flood 09/[address] [place] [address] E[facility]on [facility]ER[place]NDES [facility] FAMRES Tm Blue) [address] [place] [address] Edson FERNANDES [facility]Sco tt [facility] Tm Blue) TELE CONSULT [id number] BABATUNDE Shafer 03/[address] [place] [address] Edson FERNANDES ([facility])(S [facility] FAMRES Tm Blue) [address] [place] [address] Edson [facility]NANDES [facility]Sco tt [facility] Tm Blue) OUTPATIENT [id number] ADULT PHYSICA L/LAB RESULTS VINICIO LUNA A 04/24 Released w/o Limitations [address] [place] [address] Edson FERNANDES ([facility])(S cott [facility] Tm Blue) [address] [place] [address] Edson FERNANDES [facility] FAM[facility] Tm Blue) TELE CONSULT [id number] stopped taking meds VINICIO LUNA 05/[address] [place] [address] Edson FERNANDES ([facility]S cott [facility] Tm Blue) [address] [place] [address] Edson FERNANDES [facility]Gas troentero logy Resource Sharing) OUTPATIENT [id number] Colorec yvonne Cancer Screeni HUSSEIN Ramos 05/24 Released w/o Limitations [address] [place] [address] Edson FERNANDES ([facility])(G astroen terolog y Resourc e Sharing ) [address] [place] [address] Edson FERNANDES [facility]Opt ometry) OUTPATIENT [id number] FULL EXAM WYATT NEWSOME 06/14 Released w/o Limitations [address] [place] [address] Edson FERNANDES [facility]O ptometr y) [address] [place] [address] Edson FERNANDES [facility] ) OUTPATIENT [id number] initial appt MAYNOR SOLORZANO 09/06 Released w/o Limitations [address] [place] [address] Edson FERNANDES [facility]S cott Interna l Medicin e Tm) [address] [place] [address] Edson FERNANDES [facility] ) TELE CONSULT [id number] osteope MAYNOR Rosario 09/[address] [place] [address] Edson FERNANDES [facility]S cott Interna l Medicin e Tm) [address] [place] [address] Edson FERNANDES [facility] ) TELE CONSULT [id number] cream for scabies AIDA HIGGINS B 10/[address] [place] [address] Edson FERNANDES [facility]S cott Interna l Medicin e Tm) [address] [place] [address] Edson FERNANDES [facility] ) TELE CONSULT [id number] hemMAVIS Gan 02/[address] [place] [address] Edson FERNANDES [facility]S cott Interna l Medicin e Tm) [address] [place] [address] Edson FERNANDES [facility] ) OUTPATIENT [id number] fol chol, bp MAYNOR SOLORZANO 04/13 Released w/o Limitations [address] [place] [address])(S cott Interna l Medicin e Tm) [address] [place] [address] Edson [facility])([facility] ) TELE CONSULT [id number] labs for upcomin g apr07 appt MAYNOR SOLORZANO 07/[address] [place] [address])(S cott Interna l Medicin e Tm) [address] [place] [address])([facility] ) OUTPATIENT [id number] F/U GI PROBLEM S and Previou s Consult H#[phone] MAYNOR SOLORZANO 07/26 Released w/o Limitations [address] [place] [address])(S cott Interna l Medicin e Tm) [address] [place] [address])([facility]) OUTPATIENT [id number] avulsio n l ring finger JESUS PHILLIP T 09/14 Released w/o Limitations [address] [place] [address] Edson [facility])([facility]) [address] [place] [address] Edson [facility])([facility] ) TELE CONSULT [id number] Order all Labs - HTN, Cholest jannet, Glucose FIDE GIRON 11/[address] [place] [address])(S cott Interna l Medicin e Tm) [address] [place] [address])([facility] ) OUTPATIENT [id number] F/U HTN, CHOLEST JANNET, MEDICAT ION H#[phone] FIDE GIRON 12/06 Released w/o Limitations [address] [place] [address])(S cott Interna l Medicin e Tm) [address] [place] [address] Edson [facility])([facility] ) TELE CONSULT [id number] lab work prior to appt. HIREN NOONAN 03/[address] [place] [address])(S cott Interna l Medicin e Tm) [address] [place] [address] Edson [facility])([facility] ) OUTPATIENT [id number] fol chol, b.p. FIDE GIRON 03/19 Released w/o Limitations [employer] [facility]on JOSEB ([facility])(S cott Interna l Medicin e Tm) [facility] Edson GARCIAB ([facility])([facility] [place] [place] tt Internal Medicine Tm) TELE CONSULT [id number] HCM JULISSA TURNER Carlos 05/[address] [place] [address] Group Edson B ([facility])(S cott Interna l Medicin e Tm) [facility]dson B ([facility])(Analytical Research Chemist ecology) OUTPATIENT [id number] well woman exam. Mammo done in reports h/o open has ovaries still NOHEMY CHOPRA 05/06 Released w/o Limitations [facility] Edson B ([facility])(G ynecolo gy) [facility] Edson B ([facility])(Analytical Research Chemist ecology) TELE CONSULT [id number] results NOHEMY CHOPRA 05/[address] [place] [address] Group Edson JOSEB ([facility])(G ynecolo gy) [facility] Medical [facility] Edson B [facility] [place] [place] tt Internal Medicine Tm) TELE CONSULT [id number] Order Labs TAWANA TAN 07/18 [facility]on B ([facility])(S cott Interna l Medicin e Tm) [facility] E[facility]on GARCIAB ([facility])([facility] [place] [place] tt Internal Medicine Tm) OUTPATIENT [id number] f/u labs ROMELIA BURRELL 07/25 Released w/o Limitations [facility] JOSEB ([facility])(S cott Interna l Medicin e Tm) [facility] B ([facility])([facility] [place] [place] tt Internal Medicine ) OUTPATIENT [id number] hm pain in rhgt side FIDE GIRON 09/11 Released w/o Limitations [facility] Edson GARCIAB ([facility])(S cott Interna l Medicin e Tm) [facility] Edson GARCIAB ([facility])([facility] [place] [place] tt Internal Medicine Tm) OUTPATIENT [id number] [phone] follow up on lico jannet FIDE GIRON 01/08 Released w/o Limitations [facility] Edson GARCIAB ([facility])(S cott Interna l Medicin e Tm) [facility]dson [employer] [facility] [place] [place] tt Internal Medicine Tm) TELE CONSULT [id number] appt, labs HIREN NOONAN 02/02 [facility] Edson FERNANDES ([facility])(S cott Interna l Medicin e Tm) [facility] E[facility]on FERNANDES ([facility])([facility] ) TELE CONSULT [id number] Labwork needed prior to appt on 6Feb MICHELLE ABDALLA 05/[address] [place] [address] Group Edson FERNANDES ([facility])(S cott Interna l Medicin e Tm) [facility] Edson FERNANDES ([facility])([facility] ) OUTPATIENT [id number] follow up on cholest jannet/ch olistis [phone] KIT, LETHA CPT 05/15 Released w/o Limitations [address] [place] [address] Group Edson FERNANDES ([facility])(S cott Interna l Medicin e Tm) [address] [place] [address] Edson FERNANDES [facility] ) TELE CONSULT [id number] Med Renewal MICHELLE ABDALLA 05/[address] [place] [address] Group Edson FERNANDES ([facility])(S cott Interna l Medicin e Tm) [facility] Medical [facility] Edson FERNANDES [facility] ) OUTPATIENT [id number] ring removal KIT, LETHA CPT 06/16 Released w/o Limitations [address] [place] [address] Group Edson FERNANDES ([facility])(S cott Interna l Medicin e Tm) [facility] Medical [facility] Edson FERNANDES [facility] ) TELE CONSULT [id number] Medicat ion refill HIREN NOONAN 11/04 [facility] Edson FERNANDES ([facility])(S cott Interna l Medicin e Tm) [facility] Edson FERNANDES [facility]Higinio e Managemen t) TELE CONSULT [id number] CM hosp notific ROSEMARY Rankin 11/16 [facility] Edson FERNANDES [facility]C ase Managem ent) [facility] Edson FERNANDES [facility] ) TELE CONSULT [id number] referal for orthope HIREN Javed 11/[address] [place] [address] Group Edson FERNANDES [facility]S cott Interna l Medicin e Tm) [facility] Edson FERNANDES [facility] ) OUTPATIENT [id number] follow up appt depress ion/lab s KIT, LETHA CPT 02/10 Released w/o Limitations [address] [place] [address] Edson [facility])(S cott Interna l Medicin e Tm) [address] [place] [address] Edson [facility])([facility] ) TELE CONSULT [id number] SHAISTA HIREN Hansel 03/[address] [place] [address] Edson [facility])(S cott Interna l Medicin e Tm) [address] [place] [address] Edson [facility])([facility] ) TELE CONSULT [id number] lab results KIT, [facility] CPT 03/[address] [place] [address] Edson [facility])(S cott Interna l Medicin e Tm) [address] [place] [address] Edson [facility])([facility] Internal [facility]) TELE CONSULT [id number] labwork needed prior to 16Feb appt. KIT, [facility] CPT 05/[address] [place] [address] Edson [facility])(S cott Interna l Medicin e Tm) [address] [place] [address] Edson [facility])([facility] Internal [facility]) TELE CONSULT [id number] lab KIT, LETHA CPT 05/[address] [place] [address] Edson [facility])(S cott Interna l Medicin e Tm) [address] [place] [address] Edson [facility])([facility] Internal [facility]) OUTPATIENT [id number] F/U FOR CHOLEST JANNET [phone] KIT, [facility] CPT 05/25 Released w/o Limitations [address] [place] [address] Edson [facility])(S cott Interna l Medicin e Tm) [address] [place] [address] Edson [facility])([facility] ) TELE CONSULT [id number] medicat ion questio ns WALTER PEREZ 05/[address] [place] [address] Edson [facility])(S cott Interna l Medicin e Tm) [address] [place] [address] Edson [facility])([facility] ) TELE CONSULT [id number] Lab work WALTER PEREZ 05/[address] [place] [address] Edson [facility])(S cott Interna l Medicin e Tm) [address] [place] [address] Edson [facility])([facility] ) OUTPATIENT [id number] f/u Eval for Hypothy roidism and Med (per Dr Pantoja) LETHA PANTOJA CPT 06/02 Released w/o Limitations Medical Group Edson [facility])(S cott Interna l Medicin e Tm) [facility] Medical [facility] Edson [facility])([facility] ) TELE CONSULT [id number] labs for thyroid WALTER PEREZ 07/19 [facility] Edson [facility])(S cott Interna l Medicin e Tm) [facility] Edson [facility])([facility] ) TELE CONSULT [id number] WALTER PEREZ 07/[address] [place] [address] Group Edson [facility])(S cott Interna l Medicin e Tm) [address] [place] [address] Edson [facility])([facility] ) OUTPATIENT [id number] AK on arms and face CYNDI PADGETT 08/06 Released w/o Limitations [facility] Group Edos[employer] [facility])(S cott Interna l Medicin e Tm) [facility] Medical [facility] Edson [facility])([facility] ) TELE CONSULT [id number] LAB RESULTS LETHA PANTOJA CPT 09/[address] [place] [address] Group Edson [facility])(S cott Interna l Medicin e Tm) [address] [place] [address] Edson [facility])([facility] ) TELE CONSULT [id number] rx refill WALTER PEREZ 10/26 Referred for Appointment [facility] Group Edson [facility])(S cott Interna l Medicin e Tm) [facility] Eds[facility])([facility] ) TELE CONSULT [id number] Lower Extremi ty LETHA Lamb CPT 10/26 [facility] Edson [facility])(S cott Interna l Medicin e Tm) [facility] Medical [facility] Edson [facility])([facility] ) OUTPATIENT [id number] right leg pain/ new issiue LETHA PANTOJA CPT 11/10 Released w/o Limitations [facility] ([facility] ) TELE CONSULT [id number] RAD linnea MENON EDE WYATTISON 11/15 Referred for Appointment [employer] [facility])([facility]) [facility])([facility] ) TELE CONSULT [id number] med refill WALTER PEREZ 06/06 Referred for Appointment [facility] [employer] [facility])([facility]) [facility])([facility] ) OUTPATIENT [id number] mos f/u (Meds/l abs/HLP ) [facility] C[facility] 06/14 Released w/o Limitations [facility] [place] ([facility]) [facility])([facility] ) OUTPATIENT [id number] BABATUNDE PANTOJATH CPT 06/28 Released w/o Limitations [facility])([facility]) [facility])([facility] ) TELE CONSULT [id number] YAS VERDIN 06/28 Referred for Appointment [facility]) [facility])([facility] ) TELE CONSULT [id number] med refill Loreto cad tlt WILLAM CRUZ 12/07 [facility]) [facility])([facility] ) TELE CONSULT [id number] labwork prior to appt WALTER PEREZ 12/21 [facility]) [facility])([facility] ) OUTPATIENT [id number] follow up with pcm WILLAM CURZ 12/29 Released w/o Limitations [facility]) [address] [place] [address])([facility] ) TELE CONSULT [id number] WILLAM Lopez 01/[address] [place] [address])([facility]) [address] [place] [address])([facility] ) TELE CONSULT [id number] rx refill WALTER PEREZ 02/[address] [place] [address])([facility]) [address] [place] [address])([facility] ) TELE CONSULT [id number] Pt not sure what to do - Loreto - [phone] 1 - tsg HIREN NOONAN 03/[address] [place] [address])([facility]) [address] [place] [address])([facility] ) TELE CONSULT [id number] Order Labs/Co x/667-0 501/KMR WALTER PEREZ 05/[address] [place] [address])([facility]) [address] [place] [address])([facility] ) OUTPATIENT [id number] f/u cholest jannet/ thyroid / MEDS [id number] WILLAM CRUZ 06/02 Released w/o Limitations [address] [place] [address])([facility]) [address] [place] [address])([facility] ) TELE CONSULT [id number] Notes Entered by: LEONIE PENDLETON 24 Apr 2012 1451 ------- ------- ------- ------- -- Med refill, Lab order HIREN Evans 04/[address] [place] [address])([facility]) [address] [place] [address])([facility] ) OUTPATIENT [id number] f/u for medicat ions [id number] WILLAM CRUZ 05/17 Released w/o Limitations [address] [place] [address])([facility]) [address] [place] [address])([facility] ) TELE CONSULT [id number] Notes Entered by: MARIA C MONTAÑO 29 May 2012 1038 ------- ------- ------- ------- -- [facility]- BP Checks HIREN NOONAN 05/[address] [place] [address])([facility]) [address] [place] [address])([facility] ) TELE CONSULT [id number] Notes Entered by: AIXA BETANCUR 30 Jul 2012 1045 ------- ------- ------- ------- -- Network Results - GASTROE NTEROPENNY GY 07/04/12 WILLAM CRUZ 07/[address] [place] [address])([facility]) [address] [place] [address])([facility] ) TELE CONSULT [id number] Notes Entered by: BUSHRA ARBOLEDA 31 Oct 2012 1054 ------- ------- ------- ------- -- Network Results OPHTHAL MOLOGY - 3 WILLAM CRUZ 10/[address] [place] [address])([facility]) [address] [place] [address])([facility] ) TELE CONSULT [id number] Notes Entered by: LEONIE PENDLETON 26 Mar 2013 0921 ------- ------- ------- ------- -- Lab request Loreto [phone] ALCIDES LUGO 03/[address] [place] [address])([facility]) [address] [place] [address])([facility] ) OUTPATIENT [id number] yearly follow up [id number] WILLAM CRUZ 03/31 Released w/o Limitations [address] [place] [address])([facility]) [address] [place] [address])([facility] ) TELE CONSULT [id number] Notes Entered by: Oli ARECHIGA 19 Jun 2013 0933 ------- ------- ------- ------- -- Gaurav Cruz WALTER PEREZ 06/[address] [place] [address])([facility]) [address] [place] [address])([facility] ) TELE CONSULT [id number] Notes Entered by: YOLA CARPENTER 23 Dec 2013 1307 ------- ------- ------- ------- -- Network Results - DERMATO LOGY - 08/11/13 YOLA CHAWLA 12/[address] [place] [address])([facility]) [address] [place] [address])([facility] ) TELE CONSULT [id number] Notes Entered by: LUCIA PARIKH ELS 26 Jan 2014 1047 ------- ------- ------- ------- -- Lab Test Request //Dion elder// 667.050 1 ALCIDES LUGO 01/[address] [place] [address])([facility]) [address] [place] [address])([facility] Tm) OUTPATIENT [id number] alex roger PETTY PEREZ 02/18 Released w/o Limitations [address] [place] [address])([facility]) [address] [place] [address])([facility] Tm) TELE CONSULT [id number] Notes Entered by: Oli PEREZ 29 Apr 2014 1750 ------- ------- ------- ------- -- Laborat ory results ROLDAN BARRON 04/[address] [place] [address] [facility]) [address] [place] [address] [facility])([facility] ) TELE CONSULT [id number] Notes Entered by: GANESH KLINE 23 Jun 2014 1433 ------- ------- ------- ------- -- New referra l/medic ation concern /abdias / ROLDAN BARRON 06/[address] [place] [address] Group [facility]) [address] [place] [address] [facility])([facility] ) OUTPATIENT [id number] Tinglin g bilat arms/le gs X 1 week RADHIKA VÁZQUEZ V 06/24 Released w/o Limitations [address] [place] [address] [facility] [address] [place] [address] [facility])([facility] ) OUTPATIENT [id number] f/u lab results RADHIKA VÁZQUEZ V 07/08 Released w/o Limitations [address] [place] [address])([facility]) [address] [place] [address])([facility] ) TELE CONSULT [id number] Notes Entered by: SABINO HORAN 12 Aug 2014 0915 ------- ------- ------- ------- -- Network Results -GASTRO ENTEROL OGY 08/11/14 RADHIKA VÁZQUEZ V 08/[address] [place] [address] [facility]ERNANDES [facility]) [address] [place] [address] [facility])([facility] ) TELE CONSULT [id number] Notes Entered by: SABINO HORAN 14 Aug 2014 1025 ------- ------- ------- ------- -- Network Results -GASTRO ENTEROL OGY 08/11/14 RADHIKA MALDONADO V 08/[address] [place] [address] [facility]) [address] [place] [address] [facility])([facility] ) TELE CONSULT [id number] Notes Entered by: SABINO HORAN 15 Sep 2014 1155 ------- ------- ------- ------- -- Network Results -GASTRO ENTEROL OGY 08/26/14 RADHIKA VÁZQUEZ V 09/[address] [place] [address] [facility] ([facility]) [address] [place] [address] [facility])([facility] ) OUTPATIENT [id number] f/u lab work SAILAJA ELLIOTT 10/21 Released w/o Limitations [address] [place] [address] [facility] ([facility]) [address] [place] [address] [facility])([facility] ) TELE CONSULT [id number] Notes Entered by: SABINO HORAN 22 Oct 2014 1416 ------- ------- ------- ------- -- Network Results -GASTRO ENTEROL OGY 10/13/14 SAILAJA ELLIOTT 10/[address] [place] [address] [facility]) [address] [place] [address] [facility])([facility] ) TELE CONSULT [id number] Notes Entered by: SABINO HORAN 30 Nov 2014 1338 ------- ------- ------- ------- -- Network Results -GASTRO ENTEROL OGY 11/24/14 AYESHA COOK V 11/[address] [place] [address] [facility]) [address] [place] [address] [facility])([facility] ) TELE CONSULT [id number] Notes Entered by: [place] OROZCO 08 Jan 2015 1120 ------- ------- ------- ------- -- Request for Lab Order / Eunice / WALTER PEREZ 01/[address] [place] [address])([facility]) [address] [place] [address])([facility] ) OUTPATIENT [id number] f/u Meds AYESHA COOK V 01/23 Released w/o Limitations [address] [place] [address])([facility]) [address] [place] [address])([facility] ) TELE CONSULT [id number] Notes Entered by: TARIQ WELLS 06 Aug 2015 0954 ------- ------- ------- ------- -- Lab Request (appt w/PCM on 12 August)/Alvino genio/6 [phone] LUCITA HAIR 08/05 Released w/o Limitations [address] [place] [address])([facility] [address] [place] [address])([facility] ) OUTPATIENT [id number] f/u on meds 667.050 1 JOHANNA SEPULVEDA 08/11 Released w/o Limitations [address] [place] [address])([facility]) [address] [place] [address])([facility] ) TELE CONSULT [id number] Notes Entered by: Rashard PIERCE 23 Aug 2015 09 ------- ------- ------- ------- -- Medicat ion Inquiry / Vadim / or # LUCITA HAIR 08/22 Referred for Appointment [address] [place] [address])([facility]) [address] [place] [address])([facility] ) TELE CONSULT [id number] Notes Entered by: KISHOR FORREST 19 Nov 2015 1429 ------- ------- ------- ------- -- Order labs - Bridge Rx - Vadim - - ROLDAN Love 11/[address] [place] [address] [facility])([facility]) [address] [place] [address])([facility] ) OUTPATIENT [id number] F/U meds/JOHANNA Rockwell 12/05 Released w/o Limitations [address] [place] [address])([facility]) [address] [place] [address])([facility] ) TELE CONSULT [id number] Notes Entered by: JOHANNA SEPLUVEDA 15 Dec 2015 1405 ------- ------- ------- ------- -- ROLDAN Joe 12/[address] [place] [address] [facility])([facility]) [address] [place] [address])([facility] ) TELE CONSULT [id number] Notes Entered by: JOHANNA SEPULVEDA 21 Jan 2016 1612 ------- ------- ------- ------- -- ROLDAN Banda 01/[address] [place] [address] [facility])([facility]) [address] [place] [address])([facility] ) TELE CONSULT [id number] Notes Entered by: GEORGE MITCHELL RET 10 Jul 2016 0943 ------- ------- ------- ------- -- Med Benigno /Marie magana/ marguerite MACIASDAYANNA STEVENSLOUIE Wetzel 07/10 Referred for Appointment [facility])([facility]) [facility])([facility] ) TELE CONSULT [id number] Notes Entered by: DARIUS MAGNO MUÑOZ ANNA 11 Oct 2016 0924 ------- ------- ------- ------- -- Med Renewal /SAMMY [id number] SHAKIRACARLOTAADELE A 10/11 Referred for Appointment [facility])([facility]) [address] [place] [address])([facility] ) OUTPATIENT [id number] f/u labs annual visit/m ed LAN Talavera 10/31 Released w/o Limitations [address] [place] [address])([facility]) [address] [place] [address])([facility] ) OUTPATIENT [id number] Sore throat/ headach e/cough /chest congest ion [id number] LAN MCDERMOTT 01/01 Released w/o Limitations [address] [place] [address])([facility]) [address] [place] [address])([facility] ) TELE CONSULT [id number] Notes Entered by: GEORGE MITCHELL RET 25 Jan 2017 1058 ------- ------- ------- ------- -- Rx Renewal /Sammy r/ [facility] EMILY LAURENT 01/25 Referred for Appointment [facility])([facility]) [address] [place] [address])([facility] ) TELE CONSULT [id number] Notes Entered by: TARIQ WELLS 19 Jul 2017 1003 ------- ------- ------- ------- -- Med Renewal /Rusty / ROLDAN BARRON 07/[address] [place] [address])([facility]) [address] [place] [address])([facility] ) OUTPATIENT [id number] Annual Visit MELANY VANCE 09/11 Released w/o Limitations [address] [place] [address])([facility]) [address] [place] [address])([facility] ) TELE CONSULT [id number] Notes Entered by: ZEE GARCIA 02 Jan 2018 1130 ------- ------- ------- ------- -- Med Renewal Request Med Inquiry / Lewis/ [phone] - ajh RODLAN BARRON 01/02 Medication Refill Forwarded [address] [place] [address])([facility]) [address] [place] [address])([facility] ) TELE CONSULT [id number] Notes Entered by: [place] OROZCO 15 Apr 2018 1024 ------- ------- ------- ------- -- Med Renewal / Lewis / - sgj JACKELINE KLINE 04/15 Medication Refill Forwarded [address] [place] [address])([facility]) [address] [place] [address])([facility] ) TELE CONSULT [id number] Notes Entered by: [place] OROZCO 22 Jul 2018 1136 ------- ------- ------- ------- -- Med Renewal / [place] / - sgj EMILY LAURENT 07/22 Referred for Appointment [address] [place] [address])([facility]) [address] [place] [address])([facility] ) TELE CONSULT [id number] Notes Entered by: KISHOR FORREST 17 Jan 2019 1055 ------- ------- ------- ------- -- Rx renewal - Lewis - - tsg YAS HERNANDEZ 01/[address] [place] [address])([facility]) [address] [place] [address])([facility] ) OUTPATIENT [id number] blood work results ,618.66 [id number] COLUMBA AGUILAR 01/27 Released w/o Limitations [address] [place] [address])([facility]) [address] [place] [address])([facility] ) TELE CONSULT [id number] Notes Entered by: LAUREANO HOLT 23 Jun 2019 0926 ------- ------- ------- ------- -- Rx Renewal and Lab Work Jarrett lynch/April v/ ADELE HOGUE 06/22 Medication Refill Forwarded [address] [place] [address])([facility]) [address] [place] [address])([facility] ) TELE CONSULT [id number] Notes Entered by: DELILAH AGUILAR 17 Jul 2019 1022 ------- ------- ------- ------- -- Hyperli pidemia COLUMBA AGUILAR 07/[address] [place] [address])([facility]) [address] [place] [address])([facility] ) OUTPATIENT [id number] virtual f/u lipid lab pt contact # COLUMBA AGUILAR 07/27 Released w/o Limitations [address] [place], [place] [address])([facility]) [facility] Medical [facility])([facility] ) TELE CONSULT [id number] Notes Entered by: ZEE GARCIA 10 Dec 2019 1116 ------- ------- ------- ------- -- Med Renewal Request / Roosevelt/ - ADELE Munoz 12/09 Referred for Appointment [address] [place] [address] Group [facility])([facility]) [address] [place] [address])([facility] ) OUTPATIENT [id number] Virtual annual and LILLIANA Isidro 12/25 Released w/o Limitations [address] [place] [address])([facility]) [address] [place] [address])([facility] ) TELE CONSULT [id number] Notes Entered by: JHOANA VEGA 15 Jan 2020 1005 ------- ------- ------- ------- -- log/[facility] en/6186 [id number] ROLDAN BARRON 01/14 Other Not Elsewhere Classified [facility] Medical [facility])([facility]) [address] [place] [address])([facility] ) TELE CONSULT [id number] Notes Entered by: CARLOS MANUEL CEE 31 May 2020 0856 ------- ------- ------- ------- -- med josue/ roosevelt/Adalgisa [id number] EMILY Quinn 05/31 Other Not Elsewhere Classified [address] [place] [address])([facility]) [address] [place] [address])([facility] ) TELE CONSULT [id number] Notes Entered by: CARLOS MANUEL CEE 05 Nov 2020 1024 ------- ------- ------- ------- -- med refill/ puentes/666 [id number] ADELE Lyon 11/05 Medication Refill Forwarded [address] [place] [address])([facility]) [address] [place] [address])([facility] ) TELE CONSULT [id number] Notes Entered by: GEORGE MITCHELL RET 14 Dec 2020 1014 ------- ------- ------- ------- -- Lab Order for yearly appt n/ *EMILY Abebe 12/14 Other Not Elsewhere Classified [address] [place] [address])([facility]) [address] [place] [address])([facility] ) OUTPATIENT [id number] yearly exam LEONID PUENTES 12/20 Released w/o Limitations [address] [place] [address])([facility]) [address] [place] [address])([facility] ) TELE CONSULT [id number] Notes Entered by: TARIQ WELLS 26 Apr 2021 0931 ------- ------- ------- ------- -- Lab Request and Med Renewal /Puentes/61 8.667.0 BITA PIZARRO 04/26 Medication Refill Forwarded [address] [place] [address])([facility]) [address] [place] [address])([facility] ) OUTPATIENT [id number] VIRTUAL [phone] F/U A1C, BP reading BERNA Navarro 05/03 Released w/o Limitations [address] [place] [address])([facility]) [address] [place] [address])([facility] ) TELE CONSULT [id number] Notes Entered by: ELPIDIO WEBSTER 11 Oct 202143 ------- ------- ------- ------- -- Medicat ion Refills JOSHUA WEBSTER 10/[address] [place] [address])([facility]) [address] [place] [address])([facility] ) TELE CONSULT [id number] Notes Entered by: SABINO ZENDEJAS 13 Dec 2021 0817 ------- ------- ------- ------- -- Out of Meds RX Renewal Request / Cuate saenz / JOSHUA WEBSTER 12/[address] [place] [address])([facility]) [address] [place] [address])([facility] ) OUTPATIENT [id number] F2F OVERDUE ANNUAL APPT TRUONG OJEDA 01/09 Released w/o Limitations [address] [place] [address])([facility]) [address] [place] [address])([facility] ) TELE CONSULT [id number] Notes Entered by: TARIQ WELLS 10 Feb 2022911 ------- ------- ------- ------- -- Prescri ptions not in Pharmac y/Genaro wolf/Wendy 8.667.0 501 or BRICE ALICIA 02/10 Other Not Elsewhere Classified [address] [place] [address])([facility]) [address] [place] [address])([facility] ) TELE CONSULT [id number] Notes Entered by: CHRISTAL VALDES 03 Mar 2022 1001 ------- ------- ------- ------- -- Bone Density EMILY LAURENT 03/03 Referred for Appointment [address] [place] [address])([facility]) [address] [place] [address])([facility] ) OUTPATIENT [id number] Virtual bone scan results TRUONG OJEDA 03/15 Released w/o Limitations [address] [place] [address])([facility]) [address] [place] [address])([facility] ) TELE CONSULT [id number] Notes Entered by: MAILE PIZARRO 09 May 2022 0956 ------- ------- ------- ------- -- Med Renewal Request /RODRIG U/ GIL COULTER 05/09 Medication Refill Forwarded [address] [place] [address])([facility]) [id number]-375 th [facility] Outpatient [id number] KRISHAN GAMA 05/01 Discharge Disposition: Home or Self Care 0055A-3 [facility] 0055C-[facility] Between Visit [id number] 05/08 Discharge Disposition: Home or Self Care 0055C-3 [facility] 0055C-375 [facility] Between Visit [id number] 05/08 Discharge Disposition: Home or Self Care 0055C-3 [facility] 0055A-375 [facility] Outpatient [id number] REE JMICAELADD 06/26 Discharge Disposition: Home or Self Care 0055A-3 [facility] 6130C-Af- C-375Th [facility] Between Visit [id number] 06/29 Discharge Disposition: Home or Self Care 6130C-A f-C-375 Th [facility] Procedures Combined list of: 1) Procedures from [facility] Affairs facilities going back up to thelast 18 months, not all VA non-surgical procedures are included; 2) All procedures from the Department of Defense facilities. Procedure Procedure Type Code Date Perfomer Comments Sourc e No data available for this section Amb[facility] Pharmacy TELE ASSESS & MGT SRV PROV QUAL [...] 24 HR/SOON APT;5-10 MIN MED DIS 010 [facility] IMMUNIZATION ADMINISTRATION (INCLUDES PERCUTANEOUS, INTRADERMAL, SUBCUTANEOUS, OR INTRAMUSCULAR INJECTIONS); EACH ADDITIONAL VACCINE (SINGLE OR COMBINATION VACCINE/TOXOID) 006 [facility] VISUAL FIELD EXAMINATION, UNI OR BILATERAL, WITH MEDICAL DIAGNOSTIC EVAL; INTERMEDIATE EXAM (EG, AT LEAST 2 ISOPTERS ON GOLDMANN PERIMETER, OR SEMIQUANT, AUTO SUPRATHRESHOLD SCREEN PROGRAM, MUNROE 006 [facility] UNLISTED SPECIAL SERVICE, PROCEDURE OR REPORT 006 [facility] Non-Physician Phone Call To Patient/Provider Brief (5-10min) Non-Physician Phone Call To Patient/Provider Brief (5-10min) [phone] COLUMBA AGUILAR Do[facility] Non-Physician Phone Call To Patient/Provider Brief (5-10min) Non-Physician Phone Call To Patient/Provider Brief (5-10min) [phone] ROLDAN BARRON [facility] Non-Physician Phone Call To Patient/Provider Brief (5-10min) Non-Physician Phone Call To Patient/Provider Brief (5-10min) [phone] EMILY ARROYO [facility] Non-Physician Phone Call To Patient/Provider Brief (5-10min) Non-Physician Phone Call To Patient/Provider Brief (5-10min) [phone] ADELE ROSENBERG [facility] Non-Physician Phone Call To Patient/Provider Brief (5-10min) Non-Physician Phone Call To Patient/Provider Brief (5-10min) [phone] ADELE ROSENBERG [facility] Non-Physician Phone Call To Patient/Provider Brief (5-10min) Non-Physician Phone Call To Patient/Provider Brief (5-10min) [phone] ROLDAN BARRON [facility] Non-Physician Phone Call To Patient/Provider Brief (5-10min) Non-Physician Phone Call To Patient/Provider Brief (5-10min) [phone] ROLDAN BARRON [facility] Non-Physician Phone Call To Patient/Provider Brief (5-10min) Non-Physician Phone Call To Patient/Provider Brief (5-10min) [phone] ALCIDES LUGO [facility] Non-Physician Phone Call To Pt/Provider Intermed (11-20 min) Non-Physician Phone Call To Pt/Provider Intermed (11-20 min) [phone] WALTER PEREZ [facility] Non-Physician Phone Call To Patient/Provider Brief (5-10min) Non-Physician Phone Call To Patient/Provider Brief (5-10min) [phone] ALCIDES LUGO [facility] 24-Hour Ambulatory Blood Pre ure Monitoring 011 LETHA PANTOJA CPT DoD Skin Tag Removal Up To 15 Lesions Skin Tag Removal Up To 15 Lesions [phone] CYNDI PADGETT Destruction Of Benign Lesion By Cryosurgery 010 CYNDI PADGETT [facility] Non-Physician Phone Call To Patient/Provider Brief (5-10min) Non-Physician Phone Call To Patient/Provider Brief (5-10min) [phone] WALTER PEREZ [facility] Hepatitis A Vaccine Adult Dosage (Intramuscular Use) Hepatitis A Vaccine Adult Dosage (Intramuscular Use) 28202 MICHELLE BELTRAN [facility] Hepatitis B Vaccine (Active); 20 Years and Above MICHELLE BELTRAN [facility] Immunization Administration One Vaccine Immunization Administration One Vaccine 39187 MICHELLE SPARKS [facility] Immunization Administration Each Additional Vaccine MICHELLE BELTRAN [facility] Ophthalmological New Patient Start Comprehensive Care Ophthalmological New Patient Start Comprehensive Care 18610 WYATT NEWSOME [facility] Determination Of Refractive State Determination Of Refractive State 98282 WYATT NEWSOME [facility] Visual Hernandez Test Intermediate Examination Visual Hernandez Test Intermediate Examination [id number] WYATT NEWSOME [facility] Non-Physician Phone Call To Pt/Provider Intermed (11-20 min) Non-Physician Phone Call To Pt/Provider Intermed (11-20 min) 10230 KAREN BROWN [facility] Non-Physician Phone Call To Patient/Provider Brief (5-10min) Non-Physician Phone Call To Patient/Provider Brief (5-10min) 17165 KAREN BROWN [facility] Waiver services; not otherwise specified (NOS) BERNA KELLEY [facility] Social History Combined list of available smoking, tobacco, and other social history from Department of Defense and Veterans Affairs facilities. Social History Type Response Date Comment Sour e Sex Representation Female (finding) 06/01/2022 Unknown Organization Tobacco Cigarette use: Never-cigarette user. Other Tobacco use: Never-other tobacco user (not cigarettes). Ambulatory Pharmacy Sexual Orientation Ambula tory Pharmacy Gender identity Ambulator y Pharmacy This section is an empty social history section. DoD Assessment and Plan Combined list of future [...] -Breast CA Screening: Birads 2021; due for repeat, advised to schedule -Cervical CA Screening: s/p H ysterectomy -Colon CA Screening: carlos olitis 2014 no polyps 3 yr f/u [...] encouraged to return to clinic, present to [facility] or ER for persistent worsening or development of other concerning symptoms. Patient cites understanding and agrees with plan of care. A total of 40 minutes was spent on this visit reviewing previous notes, counseling the patient on the listed diagnoses, reviewing/ordering tests, adjusting medications, and documenting the findings in this note. Krishan Ceja MD Capt, [address], [facility] Internal Medicine Staff Physician Extracted [...] note. Krishan Ceja MD Capt, [address] [facility], [facility] Internal Medicine Staff Physician Extracted from:Title: Ambulatory [...] air conditioner or fan, if available. Apply khux-zhe-fjwcmcw and prescription medicines only as told by [...] well after activity or exercise. Use a hairpiece stylist on a cool setting to dry between [...] drying your skin and with medicines. Apply yiiu-fdi-oeygwyu and prescription medicines only as told by your health care provider. Keep all follow-up visits as told by your health care provider. This is important. This information is not intended to replace advice given to you by your health care provider. Make sure you discuss any questions you have with your health care provider. Document Revised: 06/07/2022 Document Reviewed: 01/09/2022 [employer] Patient Education 2022 [employer]. Extracted from:Title: [facility] - Annual visit/ulcerative colitis/osteoporosis Author: KRISHAN [...] at this time) Ordered: Protein Electrophoresis Serum [id number] PTH Intact+Calcium [id number] Vitamin D 25 Hydroxy Level 6. H [...] note. Krishan Ceja MD Capt, [address], [facility] Internal Medicine Staff Physician Extracted [...] 1 tab(s) Oral Daily,Instr:for cholesterol, Pharmacy: [facility] [Not filled] diclofenac topical(diclofenac 1% topical [...] Maintenance, 1 tab(s) Oral Daily, Pharmacy: [facility] [Not filled] levothyroxine(levothyroxine 50 mcg oral tablet), 1 tab(s), Oral, Daily, for thyroid, # 90 tab(s), 3 total refill(s), Maintenance, 1 tab(s) Oral Daily,Instr:for thyroid, Pharmacy: [facility] [Not filled] losartan(losartan 50 mg oral [...] note. Krishan Ceja MD Capt, [address], [facility] Internal Medicine Staff Physician Extracted from:Title: E[employer]on [employer] Office Clinic Note Author: GUERLINE YING DO Date: 04/17/23 1. M enopausal and [...] for 2 weeks, then twice weekly therea... 12/04/2024 [facility] Functional Status Combined list of recent functional and cognitive assessments recorded at Department of Defense and Veterans Affairs (VA).VA Functional [place] Measurement (FIM) Scale: 1 = Total Assistance (Subject = 0% +), 2 = Maximal Assistance (Subject = 25% +), 3 = Moderate Assistance (Subject = 50% +), 4 = Minimal Assistance (Subject = 75% +), 5 = Supervision, 6 = Modified [place] (Device), 7 = Complete [place] (Timely, Safely). Assessment Date/Time Source Assessment Type Assessment Skill Assessment Score Assessment Details No data available for this section
--- OUTSIDE RECORDS SUMMARY | 2024-12-04 11:00 | XMS_ITS | Clinical Summary ---
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 Gender Identity Not on file Sexual Orientation Not on file Obstetrics History Last Filed Vital Signs Vital Sign Reading Time Taken Comments Blood Pressure 120/70 10/13/2021 10:53 AM CDT Pulse 81 10/13/2021 10:53 AM CDT Temperature 36.2 C (97.1 F) 06/16/2020 11:09 AM 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
--- OUTSIDE RECORDS SUMMARY | 2024-12-04 11:00 | XMS_ITS ---
Author Organization Unknown ENCOUNTERS Encounter Performer Location Date Diagnosis Diagnosis Status Outpatient [facility] [address] [place] [id number] Outpatient [facility] [address] [place] [address] [id number] SHANIQUE *Note: Encounters from your own facility or health system may be excluded. Allergies, Adverse Reactions, Alerts Allergen Type Severity Identification Date propoxyphene drug allergy 2 [id number] Medications Name Date Quantity Days Supplied GPI Number
[2024-12-08 06:07] LABS: Calprotectin, Fecal 1270 ug/g (0-120)
== END 2024-12-04 10:53 | disposition home or self-care (01) ==
PROVIDERS: PCP Nurse Practitioner Family; Visit Provider Internal Medicine Gastroenterology
DX: R10.31 Right lower quadrant pain (principal); K51.90 Ulcerative colitis, unspecified, without complications
CPT/HCPCS: 83993

== ENCOUNTER 2025-01-15 08:40 | Outpatient (CLI) | payer MEDICARE, OTHER, SELFPAY ==
[2025-01-15 09:54] LABS: Cholesterol 133 mg/dL (0-200); HDL Direct 41 mg/dL; Triglycerides 174 mg/dL (<150)
[2025-01-15 10:08] LABS: Free T4 Free Thyroxine 1.23 ng/dL (0.78-2.19)
[2025-01-15 10:31] LABS: Thyroid Stimulating Hormone 2.150 uIU/mL (0.465-4.680)
== END 2025-01-15 08:41 | disposition home or self-care (01) ==
LOC: ANHLAB 08:45
PROVIDERS: PCP Family Medicine; Visit Provider Nurse Practitioner Family
DX: E11.9 Type 2 diabetes mellitus without complications (principal)
CPT/HCPCS: 36415; 80061; 84439; 84443

== ENCOUNTER 2025-02-05 02:01 | Day surgery (SDC) | payer MEDICARE, OTHER, SELFPAY ==
[2025-01-27 09:01] VITALS: BMI 33.1
--- OUTSIDE RECORDS SUMMARY | 2025-02-05 02:03 | XMS_ITS | Continuity of Care Document ---
Author Name [facility] Organization [facility] Care Team Providers Care Domestic Helper Name Role Phone [facility] Unavailable Unavailable Problems [...] 2) patient-reported medications. Medication Details Route Status Indication(s) Patie nt Instructions Prescription Expires Prescription Number Last Dispense Date Ordering Provider Order Date Order Qty Source Advil Oral, every 6 hr, 0 total refill(s ), Maintena nce Oral (given by mouth) Discont inued 05/23/20232023 0055C-3 [facility] Advil Oral, every 6 [...] 12 tab(s), 3 total refill(s ), Maintena [facility], Pharmacy : [facility] Oral (given by mouth) Discont inued Age-related osteoporosis without current pathological fracture; Vitamin D deficiency, unspecified 03/04/2024 4 2023 12.0 0055C-[address] [place] [address] alendronate 70 mg oral tablet 1 tab(s), Oral, every week, with 6 to 8 ounces plain water, at least 30 minutes before first food, beverage , or medicati on of the day Ok to take with Synthroi d, # 12 tab(s), 3 total refill(s ), Maintena [facility], Pharmacy : [facility] Oral (given by mouth) Discont inued Age-related osteoporosis without current pathological fracture; Vitamin D deficiency, unspecified 01/26/2025 5 2024 12.0 0055C-3 75th [facility] alendronate 70 mg tablet See Instruct ions, Oral, # 12 EA, 3 total refill(s ), Soft Stop Oral (given by mouth) Ordered 5 2024 12.0 Ambulat ory Pharmac y aspirin 81 mg oral delayed release tablet 1 tab(s), Oral, Daily, # 90 tab(s), 0 total refill(s ), Maintena nce Oral (given by mouth) Ordered 2023 90.0 0055C-[address] [place] [address] aspirin 81 mg oral delayed release tablet TAKE ONE TABLET BY MOUTH EVERY DAY *SWALLOW WHOLE - DO NOT CHEW*, # 90 EA, 3 total refill(s ), Acute Complet ed 05/08/2023 3 2023 90.0 Ambulat ory Pharmac y atorvastati n 20 mg oral tablet 1 tab(s), Oral, Daily, for choleste rol, # 90 tab(s), 3 total refill(s ), Maintena nce, Pharmacy : [facility] Oral (given by mouth) Discont inued Other specified counseling 03/04/2024 4 2023 90.0 0055C-3 [facility] Edson atorvastati n 20 mg oral tablet 1 tab(s), Oral, Daily, for choleste rol, # 90 tab(s), 3 total refill(s ), Maintena nce, Pharmacy : [facility] Oral (given by mouth) Discont inued Other specified counseling 01/26/2025 5 2024 90.0 0055C-3 [facility] Edson atorvastati n 20 mg tablet = 1 tab(s), Oral, Daily, # 90 EA, 3 total refill(s ), Soft Stop Oral (given by mouth) Ordered 5 2024 90.0 Ambulat ory Pharmac y atorvastati n 20 mg tablet See Instruct ions, # 90 EA, 2 total refill(s ), Acute Complet ed 05/08/2023 3 2023 90.0 Ambulat ory Pharmac y calcium (as carbonate)- vitamin D 600 mg-20 mcg (800 intl units) oral tablet, chewable 1 tab(s), Chew, BID, # 60 tab(s), 0 total refill(s ), Maintena nce Chew Ordered 2023 60.0 0055C-3 75[facility] Edson cetirizine 10 mg tablet See Instruct ions, # 90 EA, 3 total refill(s ), Soft Stop Ordered 5 2024 90.0 Ambulat ory Pharmac y cetirizine 10 mg tablet See Instruct ions, # 90 EA, 2 total refill(s ), Acute Complet ed 05/08/2023 3 2023 90.0 Ambulat ory Pharmac y cinnamon 1,000 mg, Oral, 0 total refill(s ), Maintena nce Oral (given by mouth) Ordered 2023 0055C-3 [facility] conjugated estrogens 0.625 mg/g vaginal cream with applicator 0.5 g, Vaginal, every evening, Apply 0.5g vaginall y every night for 2 weeks, then twice weekly thereaft er, # 30 g, 3 total refill(s ), Maintena [facility], Pharmacy : [facility] Vagina l (in the vagina ) Discont inued Menopausal and female climacteric states; Postmenopausal atrophic vaginitis 01/26/2025 4 2024 30.0 0055C[facility]3 [facility] conjugated estrogens 0.625 mg/g vaginal cream [30g] See Instruct ions, Topical, # 30 g, 1 total refill(s ), Soft Stop Topica l (on the skin) Ordered 5 2024 30.0 Ambulat ory Pharmac y diclofenac 1% gel [100g] See Instruct ions, QID, # 100 g, 1 total refill(s ), Soft Stop Ordered 5 2024 100.0 Ambulat ory Pharmac y diclofenac 1% topical gel See instruct ions, Apply 2 grams (upper extremit ies) or 4 grams (lower extremit ies) to affected area topicall y four times daily as needed for pain. Max total body dose of 32 grams per day, # 100 g, 3 total refill(s ), Maintena [facility], Pharmacy : [facility] Discont inued Other specified counseling 03/04/2024 4 2023 100.0 0055C-3 75[facility] Edson diclofenac 1% topical gel See instruct ions, Apply 2 grams (upper extremit ies) or 4 grams (lower extremit ies) to affected area topicall y four times daily as needed for pain. Max total body dose of 32 grams per day, # 100 g, 3 total refill(s ), Maintena [facility], Pharmacy : [facility] Discont inued Other specified counseling 01/26/2025 4 2024 100.0 0055C-3 75[facility] Edson diclofenac 1% topical gel USE DOSING CARD TO APPLY 2 TO 4 GRAMS TO AFFECTED AREAS EVERY NIGHT DIRECTED , # 200 g, 3 total refill(s ), Acute Complet ed 12/13/20222022 200.0 Ambulat ory Pharmac y Diflucan 150 mg oral tablet 1 tab(s), Oral, As Directed , X 1 days, # 1 tab(s), 0 total refill(s ), Acute, 04/14/23 12:04:00 PM [employer], Pharmacy : [facility] Oral (given by mouth) Complet ed 04/14/2023 4 2023 1.0 0055C-3 [facility] EPINEPHrine 0.3 mg injectable kit USE [...] 1 EA, 1 total refill(s ), Kavitha [facility], Pharmacy : [facility] Discont inued Other specified counseling 03/04/2024 4 2023 1.0 0055C-3 75th [facility]hu EpiPen 2-Phillip 0.3 mg injectable kit See Instruct ions, Inject 1 pen into muscle of mid-oute r thigh as needed for allergic emergenc y. Seek medical attentio n. May repeat dose with new pen after 5 minutes if symptoms persist, # 1 EA, 1 total refill(s ), Kavitha aze, Pharmacy : [facility] Ordered Other specified counseling 4 2023 1.0 0055C-3 [facility] Flagyl 500 mg oral tablet 1 tab(s), Oral, every 12 hr, X 7 days, # 14 tab(s), 0 total refill(s ), Acute, 04/20/23 12:04:00 PM [employer], Pharmacy : [facility] Oral (given by mouth) Complet ed 04/20/2023 4 2023 14.0 0055C-3 [facility] fluticasone 50 mcg/inh nasal spray 100 mcg, Nostril- Both, Daily, # 16 g, 5 total refill(s ), Maintena aze, Pharmacy : [facility] Nostri l-Both (into the nose) Discont inued Other specified counseling 03/04/2024 4 2023 16.0 0055C-3 [facility] fluticasone 50 mcg/inh nasal spray USE 2 SPRAYS IN EACH NOSTRIL DAILY, # 16 g, 3 total refill(s ), Acute Complet ed 12/13/20222022 16.0 Ambulat ory Pharmac y fluticasone 50 mcg/inh nasal spray 100 mcg, Nostril- Both, Daily, # 48 g, 3 total refill(s ), Maintena nce, Pharmacy : [facility] Nostri l-Both (into the nose) Discont inued Other specified counseling 01/26/2025 5 2024 48.0 0055C-3 [facility] fluticasone 50 mcg/inh nasal spray [16g] = 2 spray(s) , Nostril- Both, Daily, # 16 g, 3 total refill(s ), Soft Stop Nostri l-Both (into the nose) Ordered 5 2024 16.0 Ambulat ory Pharmac y folic acid 1 mg oral tablet 1 tab(s), Oral, Daily, # 90 tab(s), 3 total refill(s ), Maintena aze, Pharmacy : [facility] Oral (given by mouth) Discont inued Other specified counseling 03/04/2024 4 2023 90.0 0055C-3 [facility] folic acid 1 mg oral tablet 1 tab(s), Oral, Daily, # 90 tab(s), 3 total refill(s ), Maintena aze, Pharmacy : [facility] Oral (given by mouth) Discont inued Other specified counseling 01/26/2025 5 2024 90.0 0055C-3 [facility] folic acid 1 mg tablet = 1 tab(s), Oral, Daily, # 90 EA, 3 total refill(s ), Soft Stop Oral (given by mouth) Ordered 5 2024 90.0 Ambulat ory Pharmac y folic acid 1 mg tablet See Instruct ions, # 90 EA, 2 total refill(s ), Acute Complet ed 05/08/2023 3 2023 90.0 Ambulat ory Pharmac y glucosamine Oral, 0 total refill(s ), Maintena nce Oral (given by mouth) Ordered 2023 0055C-3 75[facility] RA[facility]hu levothyroxi ne (Synthroid) 25 mcg tablet = 1 tab(s), Oral, Daily, # 90 EA, 3 total refill(s ), Soft Stop Oral (given by mouth) Ordered 5 2024 90.0 Ambulat ory Pharmac y levothyroxi ne (Synthroid) 50 mcg tablet See dose instruct ions in comments , # 90 EA, 2 total refill(s ), Acute Complet ed 05/08/2023 3 2023 90.0 Ambulat ory Pharmac y levothyroxi ne 25 mcg oral tablet 1 tab(s), Oral, Daily, for thyroid, # 90 tab(s), 3 total refill(s ), Maintena nce, Pharmacy : [facility] Oral (given by mouth) Discont inued Hypothyroidism , unspecified 02/04/2025 5 2024 90.0 0055C-3 75[facility] RAINA [facility]hu levothyroxi ne 50 mcg oral tablet 1 tab(s), Oral, Daily, for thyroid, # 90 tab(s), 3 total refill(s ), Maintena nce, Pharmacy : [facility] Oral (given by mouth) Discont inued Other specified counseling 03/04/2024 4 2023 90.0 0055C-3 [facility] losartan 50 mg oral tablet 1 tab(s), Oral, Daily, for blood pressure , # 90 tab(s), 3 total refill(s ), Maintena nce, Pharmacy : [facility] Oral (given by mouth) Discont inued Other specified counseling 03/04/2024 4 2023 90.0 0055C-3 75[facility] RAINA Sandhu losartan 50 mg oral tablet 1 tab(s), Oral, Daily, for blood pressure , # 90 tab(s), 3 total refill(s ), Maintena nce, Pharmacy : [facility] Oral (given by mouth) Discont inued Other specified counseling 01/26/2025 5 2024 90.0 0055C-3 75[facility] RAINA Sandhu losartan 50 mg tablet = 1 tab(s), Oral, Daily, # 90 EA, 3 total refill(s ), Soft Stop Oral (given by mouth) Ordered 5 2024 90.0 Ambulat ory Pharmac y losartan 50 mg tablet See Instruct ions, # 90 EA, 2 total refill(s ), Acute Complet ed 05/08/2023 3 2023 90.0 Ambulat ory Pharmac y nystatin topical 535679 units/g Powder [60g] = 1 appl(s), BID, # 60 g, 0 total refill(s ), Soft Stop Ordered 5 2024 60.0 Ambulat ory Pharmac y Nightmute-3 oral capsule 0 total refill(s ), Maintena nce Ordered 2023 0055C-3 75[facility] Super B Complex oral tablet Oral, Daily, 0 total refill(s ), Maintena nce Oral (given by mouth) Ordered 2023 0055C-3 75[facility] RA[facility]hu terbinafine 1% topical cream 1 appl(s), Topical, BID, Apply to affected area for at least 2 weeks but no more than 4 weeks., # 30 g, 1 total refill(s ), Acute, Pharmacy : [facility] Topica l (on the skin) Complet ed Erythema intertrigo 06/13/2023 4 2023 30.0 0055C-3 75[facility] RAINA [facility]hu turmeric Oral, Daily, 0 total refill(s ), Maintena nce Oral (given by mouth) Ordered 2023 0055C-3 75[facility] RA[facility]hu Tylenol Oral, 0 total refill(s ), Maintena nce Oral (given by mouth) Ordered 2023 0055C-3 75th [facility] Edson Vitamin D3 125 mcg (5000 intl units) oral capsule 1 cap(s), Oral, Daily, with food, # 56 cap(s), 0 total refill(s ), Maintena nce, Pharmacy : [facility] Oral (given by mouth) Ordered 5 2024 56.0 0055C-3 75th [facility] Vitamin D3 125 mcg (5000 intl units) oral capsule 1 cap(s), Oral, Daily, with food, # 60 cap(s), 0 total refill(s ), Maintena nce, Pharmacy : [facility] Oral (given by mouth) Discont inued Age-related osteoporosis without current pathological fracture; Vitamin D deficiency, unspecified 03/11/2024 4 2023 60.0 0055C-3 75th [facility] Vitamin D3 50 mcg (2000 intl units) oral capsule 1 cap(s), Oral, Daily, 0 total refill(s ), Maintena nce Oral (given by mouth) Ordered 2023 0055C-3 75[facility] Allergies, Adverse Reactions, Alerts Combined list of [...] Allergy to substance (disorder) Anaphylaxis active [address] [place] [address] Edson [facility] DARVON (PROPOXYPHEN E HCL) Drug allergy (disorder) Unknown active [address] [place] [address] Edson [facility] ([facility]) propoxyphene Propensity to adverse reactions to drug Unknown Active 8 Unknown Organiza tion Immunizations Combined list of available immunizations from the Department of Defense and Veterans Affairs facilities. Immunization Series Date Given Administered By Site Reaction Lot Number CVX Code Drug Hall Tender Status Comments Source influenza, high-dose seasonal, quad, pf 2022 JOSHUA 197 complet ed Result Comment: Route: Unknown Manufactu rer: OTH ([facility]) [facility] influenza virus vaccine, inactivated 2022 ALEXRGARCIAFA [id number] 88 complet ed Result Comment: [facility]: [id number] Ambulat ory Pharmac y zoster vaccine, inactivated 2021 zzRig Arm [id number] GlaxoSmithKli ne complet ed zoster vaccine, inactivat ed 01/27/22 Given Ambulat ory Pharmac y zoster vaccine recombinant 1 2021 Unknown, Provider [id number] [facility] (SKB) complet ed zoster vaccine recombina nt DoD influenza, high-dose seasonal, quad, pf 2021 TRANSCR IBED 197 Unknown complet ed influenza , high-dose seasonal, quad, pf 01/23/22 Given Ambulat ory Pharmac y influenza, high-dose seasonal, quadrivalent, .7mL dose, preservative free 1 2021 Unknown, Provider 197 Unknown (UNK) complet ed influenza , high-dose seasonal, quadrival ent, .7mL dose, preservat eduardo free DoD zoster vaccine, inactivated 2020 zzRig ht Arm [id number] 187 GlaxoSmithKli ne complet ed zoster vaccine, inactivat ed 12/21/20 Given Ambulat ory Pharmac y pneumococcal polysaccharid e, 23 valent 2020 zzLef t Arm [id number] [employer] complet ed pneumococ rebeca polysacch aride, 23 valent 12/21/20 Given Ambulat ory Pharmac y pneumococcal polysaccharid e vaccine, 23 valent 1 2020 Unknown, Provider [id number] Merck (MSD) complet ed pneumococ rebeca polysacch aride vaccine, 23 valent DoD zoster vaccine recombinant 1 2020 Unknown, Provider [id number] 187 [facility] ([facility]B) complet ed zoster vaccine recombina nt DoD influenza virus vaccine, unspecified 2020 TRANSCR IBED 88 complet ed influenza virus vaccine, unspecifi ed 12/08/20 Given Ambulat ory Pharmac y influenza, high-dose seasonal, quad, pf 2020 ALEXRGARCIAFA NTAUZZI 197 complet ed Result Comment: Unit: Unknown Manufactu rer: () Ambulat ory Pharmac y influenza, high-dose, quadrivalent 2020 SALOMON, () Not Given influenza , high-dose , [...] DoD influenza, high-dose seasonal, quad, pf 2019 JED JAMES 197 complet ed Result Comment: Unit: Unknown Manufactu rer: () Ambulat ory Pharmac y influenza, high-dose, quadrivalent 2019 ALUL, () Not Given influenza , high-dose , quadrival ent DoD pneumococcal 13-valent conjugate (PCV13) 2018 [facility] Thigh [id number] [employer] complet ed pneumococ rebeca 13-valent conjugate (PCV13) 09/10/18 Given Ambulat ory Pharmac y pneumococcal conjugate vaccine, 13 valent 1 2018 Unknown, Provider [id number] complet ed pneumococ rebeca conjugate vaccine, 13 valent DoD tetanus-dipht h toxoids (Td) adult/adol [facility] [id number] sanofi pasteur complet ed tetanus-d iphth toxoids (Td) adult/ado l 03/07/18 Given Ambulat ory Pharmac y tetanus and diphtheria toxoids, adsorbed, preservative free, for adult use (2 Lf of tetanus toxoid and 2 Lf of diphtheria toxoid) 1 2017 Unknown, Provider [id number] 09 Sanofi Pasteur (PMC) complet ed tetanus [...] influenza virus vaccine,split 2007 zzLef t Arm [id number] 15 sanofi pasteur complet ed influenza virus vaccine,s plit 03/11/08 Given Ambulat ory Pharmac y hepatitis B adult vaccine 2007 zzLef Arm [id number] 43 GlaxoSmithKli ne complet ed hepatitis B adult vaccine 03/11/08 Given Ambulat ory Pharmac y HepB, Adult 2007 JOSHUA [id number] 43 complet ed Result Comment: Route: Intramusc ular(IM) Manufactu rer: BradenKlin chino (SKB) [facility] influenza virus vaccine, split virus (incl. purified surface antigen)-reti red CODE 1 2007 Unknown, Provider [id number] 15 Sanofi Pasteur (PMC) complet ed influenza virus vaccine, split virus (incl. purified surface antigen)- retired CODE DoD hepatitis B vaccine, adult dosage 3 2007 Unknown, Provider [id number] 43 SmithKline (SKB) complet ed hepatitis B vaccine, adult [...] 23 valent DoD influenza virus vaccine,split 2006 [facility] [id number] 15 GlaxoSmithKli ne complet ed influenza virus vaccine,s plit 03/05/07 Given Ambulat ory Pharmac y influenza virus vaccine, split virus (incl. purified surface antigen)-reti red CODE 1 2006 Unknown, Provider [id number] 15 Smithine (SKB) complet ed influenza virus vaccine, split virus (incl. purified surface antigen)- retired CODE DoD tetanus-dipht h toxoids (Td) adult/adol 2006 09 [...] y tetanus, diphtheria, acellular pertu is 2005 zzWilber Arm [id number] sanofi pasteur complet ed tetanus, diphtheri a, acellular pertussis 10/11/05 Given Ambulat ory Pharmac y hepatitis A and hepatitis B vaccine 2 2005 Unknown, Provider [id number] 104 Smithine (SKB) complet ed hepatitis A and hepatitis B vaccine DoD tetanus toxoid, reduced diphtheria toxoid, and acellular pertu is vaccine, adsorbed 1 2005 Unknown, Provider [id number] Sanofi Pasteur ([facility]) complet ed tetanus toxoid, reduced diphtheri a toxoid, and acellular pertussis vaccine, adsorbed DoD hepatitis A-hepatitis B vaccine 2005 zzLef t Arm [id number] 3AA 104 GlaxoSmithKli ne complet ed hepatitis A-hepatit is B vaccine 09/06/05 Given Ambulat ory Pharmac y hepatitis A and hepatitis B vaccine 1 2005 Unknown, Provider [id number] 104 SmithKline (SKB) complet ed hepatitis A and hepatitis B vaccine DoD influenza virus vaccine,split 2002 zzLef t Arm [id number] Novartis [employer] complet ed influenza virus vaccine,s plit 02/16/03 Given Ambulat ory Pharmac y influenza virus vaccine, split virus (incl. purified surface antigen)-reti red CODE 1 2002 Unknown, Provider [id number] 15 [employer] (JAGUAR) complet ed influenza virus vaccine, split virus [...] TSH result is > 4.2 uIU/mL [facility] Vitamin D 25 OH 26 ng/mL [...] n, and other findings. Testing performed by Electrochem iluminescen ce. 56[facility] Chemistry eGFR CKD EPI 91 mL/min/1 .73_m2 [...] decrease 15-29 Severe decrease <15 Kidney failure 5A-[address] [place] [address] Chemistry Hemoglobin A1c 6.2 % 4.0 - [...] the patient and ordering Hemoglobin Electrophor esis. 5A-3 75th [facility] Chemistry eAvg Glucose 131 mg/dL 02/255A-[address] [place] [address] Chemistry Cholesterol Total 144 mg/dL 02/25 N Interpretiv e Data: According to the [place] [employer] : AGES 0-19: Desirable: < 170 mg/dL Borderline High: 170-199 mg/dL High Blood Cholesterol : >/= 200 mg/dL ADULTS: Desirable < 200 mg/dL Borderline High: 200-239 mg/dL High Blood Cholesterol : >/= 240 mg/dL [address] [place] [address] Chemistry Chol/HDL 3 mg/dL 02/[address] [place] [address] Chemistry HDL Cholesterol 46 mg/dL 40 - 59 02/25 N Interpretiv e Data: HDL (HIGH DENSITY LIPOPROTEIN ): ADULTS: Low: < 40 mg/dL High: >/= 60 mg/dL AGES 0 -19: Low: < 40 mg/dL Borderline Low: 40 - 45 mg/dL Acceptable: > 45 mg/dL [address] [place] [address] Chemistry LDL/HDL 2 02/[address] [place] [address] Chemistry Triglycerid es 183 mg/dL 7 - 149 02/25 H Interpretiv e Data: AGES 0-9: Desirable: < 75 mg/dL Borderline High: 75-99 mg/dL High: >/= 100 mg/dL AGES 10-19: Desirable: < 90 mg/dL Borderline High: 90-129 mg/dL High: >/= 130 mg/dL ADULTS: Desirable: < 150 mg/dL Borderline High: 150-199 mg/dL High: >/= 240 mg/dL Very High: >/= 500 mg/dL [address] [place] [address] Chemistry LDL 80 mg/dL 100 - 130 02/25 L Interpretiv e Data: AGES 0-19: Desirable: < 110 mg/dL Borderline High: 110-129 mg/dL High: >/= 130 mg/dL ADULTS: Desirable: <100 mg/dL Near/above optimal: 100-130 mg/dL Borderline High: 131-159 mg/dL High: 160-189 mg/dL Very High: 1 90 mg/dL [address] [place] [address] Chemistry CO2 24 mmol/L 22 - 29 02/[address] [place] [address] Chemistry Creatinine Level 0.70 mg/dL 0.57 - 1.11 02/[address] [place] [address] Chemistry Potassium Lvl 4.0 mmol/L 3.5 - 5.1 02/[address] [place] [address] Chemistry Glucose Lvl 131 mg/dL 74 - 99 02/[address] [place] [address] Chemistry Sodium 141 mmol/L 136 - 145 02/25 N -[address] [place] [address] Chemistry Albumin 3.60 g/dL 3.50 - 5.20 02/25 N -[address] [place] [address] Chemistry Phosphorus 3.1 mg/dL 2.3 - 4.7 02/25 N -[address] [place] [address] Chemistry BUN 12 mg/dL 7 - 20 02/25 N -[address] [place] [address] Chemistry AGAP 8.00 0.00 - 15.00 02/25 N -[address] [place] [address] Chemistry Chloride 109 mmol/L 98 - 107 02/[address] [place] [address] Chemistry Calcium 10.0 mg/dL 8.4 - 10.2 02/25 N - [address] [place] [address] Chemistry BUN/Creat Ratio 17 mg/dL 12 - 20 02/[address] [place] [address] Chemistry Vitamin D 25 OH 27.6 ng/mL [...] n, and other findings. Testing performed by Electrochem tom ce. 56[facility]U [facility] Chemistry TSH 2.270 mIU/L 0.270 - 4.200 02/25 N Interpretiv e Data: Recommend: TPO/Thyrope roxidase Antibody when TSH result is > 4.2 uIU/mL 5600A[facility]U [facility] Hematolog y WBC 4.8 x10^3/mc L 4.0 - 11.0103 02/25 N -[address] [place] [address] Hematolog y MPV 9.8 fL 7.4 - 10.4 11/19 /2024 N 0055A-[address] [place] [address]- Edson Hematolog y MCHC 33.1 g/dL 33.0 - 36.5 02/25 N 0055A-[address] [place] [address]- E[facility]on Hematolog y MCV 95 fL 80 - 97 02/25 N 0055A-[address] [place] [address] Hematolog y MCH 31 pg 28 - 33 02/25 N 0055A-[address] [place] [address] Hematolog y RDW 12.4 % 11.0 - 14.9 02/25 N 0055A-[address] [place] [address] Hematolog y RBC 4.4 x10^6/mc L 3.6 - 5.0106 02/25 N 0055A-[address] [place] [address] Hematolog y Platelets 305.0 x10^3/mc L 150.0 - 450.0103 02/25 N 0055A-[address] [place] [address] Hematolog y Differentia l? Auto ( 4 8:32 AM) 02/25 N 0055A-[address] [place] [address] Hematolog y Hemoglobin 13.7 g/dL 11.0 - 15.0 02/25 N 0055A-[address] [place] [address] Hematolog y Hematocrit 41 % 34 - 46 02/25 N 0055A-[address] [place] [address] Chemistry ALT 28 U/L 5 - 55 02/25 N 0055A-[address] [place] [address] Chemistry AST 29 U/L 5 - 34 02/25 N 0055A-[address] [place] [address] Chemistry Alk Phos 54 U/L 40 - 150 02/25 N 0055A-[address] [place] [address] Chemistry Bilirubin Direct 0.2 mg/dL 0.1 - 0.5 02/25 N 0055A-[address] [place] [address] Chemistry Bilirubin Total 0.4 mg/dL 0.2 - 1.2 02/25 N 0055A-[address] [place] [address] Chemistry Protein Total 7.1 g/dL 6.4 - 8.3 02/25 N 0055A-[address] [place] [address] Hematolog y Monocyte % Auto 10 % 1 - 12 02/25 N 0055A-[address] [place] [address] Hematolog y Neutro Absolute 2.3 x10^3/mc L 2.0 - 7.0103 02/[facility] Hematolog y [place] Absolute 0.5 x10^3/mc L 0.2 - 0.8103 02/25 N 005-[address] [place] [address]- [facility] Hematolog y Neutrophil % Auto 48.0 % 46.0 - 77.0 02/25 N -[address] [place] [address] Hematolog y Baso Absolute 0.0 x10^3/mc L 0.0 - 0.1103 02/25 N 005-[address] [place] [address] Hematolog y Lymphocyte % Auto 39.1 % 20.0 - 40.0 02/25 N - [address] [place] [address] Hematolog y Lymph Absolute 1.9 x10^3/mc L 1.2 - 4.0103 02/25 N - [address] [place] [address] Hematolog y Eos Absolute 0.1 x10^3/mc L 0.0 - 0.7103 02/25 N 005-[address] [place] [address] Hematolog y Eosinophil % Auto 2 % 0 - 5 02/25 N - [address] [place] [address] Hematolog y Basophil % Auto 0.4 % 0.0 - 2.5 02/25 N -[address] [place] [address] Chemistry Intact PTH LC COMMENT 05/23 Result Comment: Interpretat ion Intact PTH Calcium (pg/mL) (mg/dL) Normal 15 - 65 8.6 - 10.2 Primary Hyperparath yroidism >65 >10.2 Secondary Hyperparath yroidism >65 <10.2 Non-Parathy roid Hypercalcem ia <65 >10.2 Hypoparathy roidism <15 < 8.6 Non-Parathy roid Hypocalcemi a 15 - 65 < 8.6 Performed At: [address] [id number] Iris Hickey PhD Ph:[id number] [address] [place] [address] Chemistry PTH Intact.LC 42 pg/mL 05/23-[address] [place] [address] Chemistry Calcium Total.LC 9.6 mg/dL 05/[address] [place] [address] Chemistry Vitamin D 25 OH 20.3 ng/mL [...] n, and other findings. Testing performed by Salome avitia. [id number]-U [facility] Chemistry G-Globulin LC 0.9 g/dL 05/[address] [place] [address] Chemistry A-1-Globuli n.LC 0.2 g/dL 05/[address] [place] [address] Chemistry B-Globulin LC 0.9 g/dL 05/[address] [place] [address] Chemistry A-2-Globuli n.LC 1.0 g/dL 05/[address] [place] [address] Chemistry Albumin g/dL LC 3.5 g/dL 05/[address] [place] [address] Chemistry Protein, Total, Serum.LC 6.5 g/dL 05/[address] [place] [address] Chemistry Protein Electro Note LC COMMENT 05/23 Result Comment: Protein electrophor esis scan will follow via computer, mail, or data reviewer delivery. Performed At: [address] [id number] Iris Hickey PhD Ph:[id number] [address] [place] [address] Chemistry Globulin.LC 3.0 g/dL 05/[address] [place] [address] Chemistry Protein Monoclonal Jose.LC Not Observed 05/[address] [place] [address] Chemistry A/G Ratio.LC 1.2 05/[address] [place] [address]- [place] Chemistry AST 26 U/L 5 - 34 05/18 N 5A-3 [facility]- [place] Chemistry ALT 27 U/L 5 - 55 05/18 N 5A-[address] [place] [address] Chemistry Alk Phos 86 U/L 40 - 150 05/18 N 5A-[address] [place] [address] Chemistry BUN 10 mg/dL 7 - 20 05/18 N -[address] [place] [address]- [place] Chemistry Bilirubin Total 0.4 mg/dL 0.2 - 1.2 05/18 N -[address] [place] [address] Chemistry Calcium 10.0 mg/dL 8.4 - 10.2 05/18 N -[address] [place] [address] Chemistry BUN/Creat Ratio 17 mg/dL 12 - 20 05/18 N -[address] [place] [address] Chemistry Albumin 3.40 g/dL 3.50 - 5.20 05/18 L -[address] [place] [address] Chemistry AGAP 8.00 0.00 - 15.00 05/18 N -[address] [place] [address] Chemistry Glucose Lvl 121 mg/dL 74 - 99 05/18 H -[address] [place] [address] Chemistry Creatinine Level 0.60 mg/dL 0.57 - 1.11 05/18 N 5A-[address] [place] [address] Chemistry CO2 26 mmol/L 22 - 29 05/18 N -[address] [place] [address] Chemistry Chloride 107 mmol/L 98 - 107 05/18 N -[address] [place] [address] Chemistry Potassium Lvl 4.0 mmol/L 3.5 - 5.1 05/18 N 5A-[address] [place] [address] Chemistry Protein Total 7.0 g/dL 6.4 - 8.3 05/18 N -[address] [place] [address] Chemistry Sodium 141 mmol/L 136 - 145 05/18 N 5A-[address] [place] [address] Chemistry Chol/HDL 4 mg/dL 05/18 0055A-[address] [place] [address] Chemistry Triglycerid es 142 mg/dL 7 - 149 05/18 N Interpretiv e Data: AGES 0-9: Desirable: < 75 mg/dL Borderline High: 75-99 mg/dL High: >/= 100 mg/dL AGES 10-19: Desirable: < 90 mg/dL Borderline High: 90-129 mg/dL High: >/= 130 mg/dL ADULTS: Desirable: < 150 mg/dL Borderline High: 150-199 mg/dL High: >/= 240 mg/dL Very High: >/= 500 mg/dL - [address] [place], [place] [address]RED - [employer] Chemistry LDL 79 mg/dL 100 - 130 05/18 L Interpretiv e Data: AGES 0-19: Desirable: < 110 mg/dL Borderline High: 110-129 mg/dL High: >/= 130 mg/dL ADULTS: Desirable: <100 mg/dL Near/above optimal: 100-130 mg/dL Borderline High: 131-159 mg/dL High: 160-189 mg/dL Very High: 1 90 mg/dL [email or web address] [employer] Chemistry LDL/HDL 2 05/[address] [place] [address] [facility] Chemistry Cholesterol Total 138 mg/dL 05/18 N Interpretiv e Data: According to the [place] [employer] : AGES 0-19: Desirable: < 170 mg/dL Borderline High: 170-199 mg/dL High Blood Cholesterol : >/= 200 mg/dL ADULTS: Desirable < 200 mg/dL Borderline High: 200-239 mg/dL High Blood Cholesterol : >/= 240 mg/dL [email or web address] [employer] Chemistry HDL Cholesterol 39 mg/dL 40 - 59 05/18 L Interpretiv e Data: HDL (HIGH DENSITY LIPOPROTEIN ): ADULTS: Low: < 40 mg/dL High: >/= 60 mg/dL AGES 0 -19: Low: < 40 mg/dL Borderline Low: 40 - 45 mg/dL Acceptable: > 45 mg/dL - [address] [place], [place] [address]RED - [employer] Chemistry eGFR CKD EPI 95 mL/min/1 .73_m2 [...] decrease 15-29 Severe decrease <15 Kidney failure 5A-3 [facility] Chemistry Ur Microalb/Ur Creat Ratio WO[employer]DER 05/18 Result Comment: Results out of detectable range of analyzer, calculation can not be performed. -3 [facility] Chemistry Ur Microalbumi n <5 mg/L 05/18 N Result Comment: Below detectable range of analyzer. Interpretiv e Data: To minimize intra-indiv idual variation, analysis of three random urine samples collected over the course of a week has also been recommended . -3 [facility] Chemistry Ur Creat 90 mg/dL 05/18-3 [facility] Chemistry Hemoglobin A1c 6.1 % 4.0 - [...] the patient and ordering Hemoglobin Electrophor esis. -[address] [place] [address] Chemistry eAvg Glucose 128 mg/dL 05/18 0055A-[address] [place] [address]- [place] Hematolog y WBC 5.4 x10^3/mc L 4.0 - 11.0103 05/18 N 0055A-[address] [place] [address]- [place] Hematolog y MPV 9.5 fL 7.4 - 10.4 05/18 N 0055A-[address] [place] [address] [facility] Hematolog y Platelets 291.0 x10^3/mc L 150.0 - 450.0103 05/18 N 0055A-[address] [place], [place] [address]GRP- [facility] Hematolog y RBC 4.1 x10^6/mc L 3.6 - 5.0106 05/18 N 0055A-[address] [place] [address] [facility] Hematolog y RDW 12.6 % 11.0 - 14.9 05/18 N 0055A-[address] [place] [address]- [place] Hematolog y MCV 96 fL 80 - 97 05/18 N 0055A-[address] [place], [place] [address]GRP- [facility] Hematolog y MCH 32 pg 28 - 33 05/18 N 0055A-3 [facility] [place] Hematolog y MCHC 33.0 g/dL 33.0 - 36.5 05/18 N 0055A-3 [facility] Hematolog y Hemoglobin 13.0 g/dL 11.0 - 15.0 05/18 N 0055A-3 [facility] Hematolog y Hematocrit 39 % 34 - 46 05/18 N 0055A-[address] [place] [address] Chemistry TSH 1.240 mIU/L 0.270 - 4.200 05/18 N Interpretiv e Data: Recommend: TPO/Thyrope roxidase Antibody when TSH result is > 4.2 uIU/mL 5600A-U [facility] Hematolog y Baso Absolute 0.0 x10^3/mc L 0.0 - 0.1103 05/18 N 0055A-[address] [place] [address]- [place] Hematolog y Basophil % Auto 0.6 % 0.0 - 2.5 05/18 N -3 [facility] Neutrophil % Auto 47.0 % 46.0 - 77.0 05/18 N 5A-[address] [place] [address]- [place] Hematolog y Monocyte % Auto 8 % 1 - 12 05/18 N 5A-3 [facility] H[facility]olog y Neutro Absolute 2.5 x10^3/mc L 2.0 - 7.0103 05/18 N -[address] [place] [address]- [place] Hematolog y Lymphocyte % Auto 40.5 % 20.0 - 40.0 05/18 H 5A-[address] [place] [address] Hematolog y Lymph Absolute 2.2 x10^3/mc L 1.2 - 4.0103 05/18 N 5A-[address] [place] [address]- [place] Hematolog y [place] Absolute 0.4 x10^3/mc L 0.2 - 0.8103 05/18 N 5A-3 [facility] H[facility]olog y Eos Absolute 0.2 x10^3/mc L 0.0 - 0.7103 05/18 N 005-[address] [place] [address]- [facility] Hematolog y Eosinophil % Auto 3 % 0 - 5 05/18 N 0055A-[address] [place] [address] Urinalysi s UA Glucose Negative mg/dL 05/18 N 0055A-3 [facility] Urinalysi s UA Leuk Esterase Negative (05/18/23 9:58 AM) 05/18 N 0055A-3 [facility] Urinalysi s UA Ketones Negative mg/dL 05/18 N 0055A-[address] [place] [address]- [place] Urinalysi s UA Nitrite Negative (05/18/23 9:58 AM) 05/18 N 5A-3 [facility] Urinalysi s UA Protein Negative mg/dL 05/18 N -3 [facility] Urinalysi s UA pH 6.0 *NA* (05/18/23 9:58 AM) 5 - 8 05/18 005-3 [facility] Urinalysi s UA Spec [place] 1.020 1.001 - 1.035 05/18 N -3 [facility] Urinalysi s UA RBC 0-2 /HPF 05/18 N -3 [facility] [place] Urinalysi s UA WBC 0-2 /HPF 05/18 N -3 [facility] Urinalysi s UA Bili Negative (05/18/23 9:58 AM) 05/18 N -[address] [place] [address] Urinalysi s UA Urobilinoge n 0.2 E.U./dL 0.2 - 1.0.. 05/18 N -3 [facility] [place] Urinalysi s UA Epi Squam 3-4 05/18-3 [facility] Urinalysi s UA Blood Trace-in tact 05/18-3 [facility] Urinalysi s UA Color Yellow *NA* (05/18/23 9:58 AM) 05/18-[address] [place] [address]- [place] Urinalysi s UA Clarity Slightly Cloudy 05/18-[address] [place] [address] Vital Signs Combined list of inpatient and outpatient Vital Signs from Department of Defense and Veterans Affairs, ranging from 12 months to all on record, depending upon the facility. Vital Sign Value Date Comments Source Blood Pressure Manual Automatic 05/23/2023 15:38:00 [facility] Karen Mean Arterial Pressure, Cuff (Calc) 98 mm[Hg] 05/23/2023 15:38:00 [facility] Peripheral Pulse Rate 80 bpm 05/23/2023 15:38:00 [facility] Respiratory Rate 20 br/min 05/23/2023 15:38:00 [facility] Systolic Blood Pressure 129 mm[Hg] 05/23/19 15:38:00 [facility] Diastolic Blood Pressure 82 [...] [facility] Systolic Blood Pressure 119 mm[Hg] 04/17/19 17:36:00 [facility] Diastolic Blood Pressure 74 mm[Hg] 17:36:00 [facility] Temperature Oral 36.7 Fanny 04/17/2023 17:36:00 [facility] Systolic Blood Pressure 128 mm[Hg] 03/04/20 24 19:11:00 [facility] Diastolic Blood Pressure 76 mm[Hg] 024 19:11:00 [facility] BP Site Left arm 03/04/2024 19:11:00 [facility] Temperature Oral 36.7 Fanny 03/04/2024 19:11:00 [facility] Blood Pressure Manual Automatic 03/04/2024 19:11:00 [facility] Peripheral Pulse Rate 84 bpm 03/04/2024 19:11:00 00[facility] Mean Arterial Pressure, Cuff (Calc) 93 mm[Hg] 03/04/2024 19:11:00 - TAMMY-[facility] Respiratory Rate 17 br/min 03/04/2024 19:11:00 5C- TAMMY-[facility] Encounters Combined list of: 1) Encounters from Department of Veterans Affairs facilities going backup to the last 18 months, not all VA inpatient encounters are included; 2) Encounters from the Department of Defense facilities going backup to 280 months. Location Location Details Encounter Type Encounter Number Reason For Visit Attending Provider ADM Date DC Date Status Disposition Source [address] [place] [address] Edson FERNANDES [facility])(Sco tt [facility] Tm Blue) TELE CONSULT [id number] lab results request KP Flood 09/[address] [place] [address] Edson FERNANDES [facility])(S [facility] Blue) [address] [place] [address] Edson GARCIAB [facility])(Sco tt [facility] Blue) TELE CONSULT [id number] abnorma l labs BABATUNDE WORTHINGTON 03/[address] [place] [address] Edson [facility] [address] [place] [address] Edson GARCIAB [facility])(Sco tt [facility] FAMRES Tm Blue) OUTPATIENT [id number] ADULT PHYSICA L/LAB RESULTS VINICIO LUNA 04/24 Released w/o Limitations [address] [place] [address] Edson [facility]ES [facility])(S [facility] FAMRES Tm Blue) [address] [place] [address] Edson GARCIAB [facility] TELE CONSULT [id number] stopped taking meds VINICIO LUNA 05/[address] [place] [address] Edson [facility]ERNANDES [facility])(S [facility] FAMRES Tm Blue) [address] [place] [address] Edson GARCIAB [facility])(Gas troentero logy Resource Sharing) OUTPATIENT [id number] Colorec yvonne Cancer Screeni HUSSEIN Ramos 05/24 Released w/o Limitations [address] [place] [address] Edson [facility]ERNANDES [facility])(G astroen terolog y Resourc e Sharing ) [address] [place] [address] Edson GARCIAB [facility])(Opt ometry) OUTPATIENT [id number] FULL EXAM WYATT NEWSOME 06/14 Released w/o Limitations [address] [place] [address] Edson [facility]ES [facility])(O ptometr y) [address] [place] [address] Edson [facility])([facility] Internal Medicine ) OUTPATIENT [id number] initial appt MAYNOR SOLORZANO 09/06 Released w/o Limitations [address] [place] [address] Edson [facility])(S cott Interna l Medicin e Tm) [address] [place] [address] Edson [facility])([facility] ) TELE CONSULT [id number] osteope MAYNOR Rosario 09/[address] [place] [address] Edson [facility])(S cott Interna l Medicin e Tm) [address] [place] [address] Edson [facility])([facility] ) TELE CONSULT [id number] cream for scabies AIDA HIGGINS B 10/[address] [place] [address] Edson [facility])(S cott Interna l Medicin e Tm) [address] [place] [address] Edson [facility])([facility] ) TELE CONSULT [id number] hemrhoi d MAVIS Mayen 02/[address] [place] [address] Edson [facility])(S cott Interna l Medicin e Tm) [address] [place] [address] Edson [facility])([facility] ) OUTPATIENT [id number] fol chol, bp MAYNOR SOLORZANO 04/13 Released w/o Limitations [address] [place] [address] Edson [facility])(S cott Interna l Medicin e Tm) [address] [place] [address] Edson [facility])([facility] ) TELE CONSULT [id number] labs for upcomin g apr07 appt MAYNOR SOLORZANO 07/[address] [place] [address] Edson [facility])(S cott Interna l Medicin e Tm) [address] [place] [address] Edson [facility])([facility] ) OUTPATIENT [id number] F/U GI PROBLEM S and Previou s Consult H#[id number] MAYNOR SOLORZANO 07/26 Released w/o Limitations [address] [place] [address] Edson [facility])(S cott Interna l Medicin e Tm) [address] [place] [address] Edson [facility])([facility]) OUTPATIENT [id number] avulsio n l ring finger JESUS PHILLIP 09/14 Released w/o Limitations [facility] Edson JOSESylvester [facility])(A [facility]) [address] [place] [address] Edson [facility])([facility] ) TELE CONSULT [id number] Order all Labs - HTN, Cholest jannet, Glucose FIDE GIRON 11/[address] [place] [address] Edson [facility]ERNANDES [facility])(S cott Interna l Medicin e Tm) [address] [place] [address] Edson [facility])([facility] ) OUTPATIENT [id number] F/U HTN, CHOLEST JANNET, MEDICAT ION H#[id number] FIDE GIRON 12/06 Released w/o Limitations [address] [place] [address] Edson [facility])(S cott Interna l Medicin e Tm) [address] [place] [address] Edson [facility])([facility] ) TELE CONSULT [id number] lab work prior to appt. HIREN NOONAN 03/[address] [place] [address] Edson [facility])(S cott Interna l Medicin e Tm) [address] [place] [address] Edson [facility])([facility] ) OUTPATIENT [id number] fol imani houston DEREK M 03/19 Released w/o Limitations [address] [place] [address] Edson [facility])(S cott Interna l Medicin e Tm) [address] [place] [address] Edson [facility])([facility] ) TELE CONSULT [id number] [facility] JULISSA TURNER 05/[address] [place] [address] Edson [facility])(S cott Interna l Medicin e Tm) [address] [place] [address] Edson [facility])([employer] ecology) OUTPATIENT [id number] well woman exam. Mammo done in reports h/o open has ovaries still NOHEMY CHOPRA 05/06 Released w/o Limitations [address] [place] [address] Edson [facility])(G nathancoenrike gy) [address] [place] [address] Edson [facility])([employer]ior [employer] ecology) TELE CONSULT [id number] results NOHEMY CHOPRA 05/[address] [place] [address] Edson [facility])(G nathancoenrike gy) [address] [place] [address] Edson [facility])([facility] ) TELE CONSULT [id number] Order Labs DOMINICK TAWANA M 07/[address] [place] [address] Group Edson FERNANDES ([facility])(S cott Interna l Medicin e Tm) [facility] Edson FERNANDES [facility])([facility] ) OUTPATIENT [id number] f/u labs ROMELIA BURRELL Chris 07/25 Released w/o Limitations [address] [place] [address] Edson [facility]ERNANDES [facility])(S cott Interna l Medicin e Tm) [address] [place] [address] Edson [facility]ER[facility]ES [facility])([facility] ) OUTPATIENT [id number] hm pain in rhgt side FIDE GIRON M 09/11 Released w/o Limitations [address] [place] [address] Group Edson [facility])(S cott Interna l Medicin e Tm) [address] [place] [address] Edson [facility]ES [facility])([facility] ) OUTPATIENT [id number] [phone] follow up on cholest jannet FIDE GIRON M 01/08 Released w/o Limitations [address] [place] [address] Edson [facility]ES [facility])(S cott Interna l Medicin e Tm) [address] [place] [address] Edson [facility])([facility] ) TELE CONSULT [id number] appt, labs HIREN NOONAN 02/[address] [place] [address] Edson [facility]ER[facility]ES [facility])(S cott Interna l Medicin e Tm) [address] [place] [address] Edson [facility]ER[facility]ES [facility])([facility] ) TELE CONSULT [id number] Labwork needed prior to appt on 6Feb MICHELLE ABDALLA F 05/[address] [place] [address] Group Edson [facility]ES [facility])(S cott Interna l Medicin e Tm) [address] [place] [address] Edson [facility]ERNANDES [facility])([facility] ) OUTPATIENT [id number] follow up on cholest jannet/ch olistis [phone] LETHA PANTOJA CPT 05/15 Released w/o Limitations [address] [place] [address] Edson [facility]ERNANDES [facility])(S cott Interna l Medicin e Tm) [address] [place] [address] Edson [facility]ERNANDES [facility])([facility] ) TELE CONSULT [id number] Med Renew[employer] MICHELLE ABDALLA F 05/[address] [place] [address] Group Edson [facility]ERNANDES [facility])(S cott Interna l Medicin e Tm) [address] [place] [address] Edosn [facility])([facility] Tm) OUTPATIENT [id number] ring removal LETHA PANTOJA CPT 06/16 Released w/o Limitations [address] [place] [address] Edson [facility])(S cott Interna l Medicin e Tm) [address] [place] [address] Edson [facility])([facility] Medicine Tm) TELE CONSULT [id number] Medicat ion refill HIREN NOONAN 11/[address] [place] [address] Edson [facility])(S cott Interna l Medicin e Tm) [address] [place] [address] Edson [facility])(Higinio e Managemen t) TELE CONSULT [id number] CM hosp notific ROSEMARY Rankin 11/[address] [place] [address] Edson [facility])(C ase Managem ent) [address] [place] [address] Edson [facility])([facility] ) TELE CONSULT [id number] referal for orthope dics HIREN NOONAN 11/[address] [place] [address] Edson [facility])(S cott Interna l Medicin e Tm) [address] [place] [address] Edson [facility])([facility] ) OUTPATIENT [id number] follow up appt depress ion/lab s LETHA PANTOJA CPT 02/10 Released w/o Limitations [address] [place] [address] Edson [facility])(S cott Interna l Medicin e Tm) [address] [place] [address] Edson [facility])([facility] Internal Medicine Tm) TELE CONSULT [id number] HIREN NOONAN 03/[address] [place] [address] Edson [facility])(S cott Interna l Medicin e Tm) [address] [place] [address] Edson [facility])([facility] ) TELE CONSULT [id number] lab results LETHA PANTOJA CPT 03/[address] [place] [address] Edson [facility])(S cott Interna l Medicin e Tm) [address] [place] [address])([facility] Internal Medicine Tm) TELE CONSULT [id number] labwork needed prior to 16Feb appt. LETHA PANTOJA CPT 05/[address] [place] [address] Edson [facility])(S cott Interna l Medicin e Tm) [facility] Edson [facility])([facility] Internal Medicine ) TELE CONSULT [id number] lab [facility] [place] [address] Group [facility])(S cott Interna l Medicin e Tm) [facility] Medical [facility] Edson [facility] ([facility])([facility] Internal Medicine ) OUTPATIENT [id number] F/U FOR CHOLEST JANNET [phone] [facility] 05/25 Released w/o Limitations [facility] Group [facility])(S cott Interna l Medicin e Tm) [facility] Medical Group [facility]on [facility])([facility] Internal Medicine ) TELE CONSULT [id number] medicat ion questio ns WALTER PEREZ 05/[address] [place] [address] Group [facility])(S cott Interna l Medicin e Tm) [facility] Medical [facility]dson [facility])([facility] Internal Medicine ) TELE CONSULT [id number] Lab work WALTER PEREZ 05/27 [facility] Medical Group [facility]on [facility])(S cott Interna l Medicin e Tm) [facility] Medical [facility] Edson [facility])([facility] Internal Medicine ) OUTPATIENT [id number] f/u Eval for Hypothy roidism and Med (per Dr Pantoja) [facility] 06/02 Released w/o Limitations [address] [place] [address] [facility]on [facility])(S cott Interna l Medicin e Tm) [facility] Medical [facility] Edson [facility])([facility] Internal Medicine ) TELE CONSULT [id number] labs for thyroid WALTER PEREZ 07/19 [facility] Medical Group [facility])(S cott Interna l Medicin e Tm) [facility] Medical [facility]dson [facility])([facility] Internal Medicine ) TELE CONSULT [id number] WALTER PEREZ 07/[address] [place] [address] Group [facility])(S cott Interna l Medicin e Tm) [facility] Medical [facility]dson [facility])([facility] Internal Medicine ) OUTPATIENT [id number] [place] on arms and face CYNDI PADGETT 08/06 Released w/o Limitations [employer]on GARCIAB ([facility])(S cott Interna l Medicin e Tm) [employer] GARCIA ([facility])([facility] Internal Medicine ) TELE CONSULT [id number] LAB RESULTS [facility] C[facility] 09/09 [employer] GARCIAB ([facility])(S cott Interna l Medicin e Tm) [employer] ([facility])([facility] Internal Medicine ) TELE CONSULT [id number] rx refWALTER Lee 10/26 Referred for Appointment [employer]dson GAR[facility] ([facility])(S cott Interna l Medicin e Tm) [employer] [facility] ([facility])([facility] Internal Medicine ) TELE CONSULT [id number] [place] [facility]IT [facility] CPT 10/26 [employer] JOSEB ([facility])(S cott Interna l Medicin e Tm) [employer] JOSE ([facility])([facility] Internal Medicine ) OUTPATIENT [id number] right leg pain/ new issiue KIT, [facility] CPT 11/10 Released w/o Limitations [employer] GARCI[facility] ([facility])(S cott Interna l Medicin e Tm) [employer] GARCIA ([facility])([facility] Internal Medicine ) TELE CONSULT [id number] RAD results EDE MENON 11/15 Referred for Appointment [employer] [facility] ([facility])(S cott Interna l Medicin e Tm) [employer] GARCIA ([facility])([facility] Internal Medicine ) TELE CONSULT [id number] med refWALTER Lee 06/06 Referred for Appointment [employer]on [facility] ([facility])(S cott Interna l Medicin e Tm) [employer] JOSEB ([facility])([facility] Internal Medicine ) OUTPATIENT [id number] 3 mos f/u (Meds/l abs/HLP ) KIT, [facility] CPT 06/14 Released w/o Limitations [employer] GARCIAB ([facility])(S cott Interna l Medicin e Tm) [employer] B ([facility])([facility] Medicine ) OUTPATIENT [id number] KALANI PANTOJAARATH CPT 06/28 Released w/o Limitations [address] [place] [address] Group Edson FERNANDES [facility])(S cott Interna l Medicin e Tm) [address] [place] [address] Edson Sylvester [facility])([facility] Internal Medicine ) TELE CONSULT [id number] JUDY VERDINA 06/28 Referred for Appointment [address] [place] [address] Group [employer] Sylvester [facility])(S cott Interna l Medicin e Tm) [address] [place] [address] E[facility]on [facility])([facility] Internal Medicine ) TELE CONSULT [id number] med refill Loreto cad tlt WILLAM CRUZ 12/[address] [place] [address] Group [employer])(S cott Interna l Medicin e Tm) [address] [place] [address] Edson Sylvester [facility])([facility] Internal Medicine ) TELE CONSULT [id number] labwork prior to appt WALTER PEREZ 12/[address] [place] [address] Group [employer])(S cott Interna l Medicin e Tm) [address] [place] [address] [facility]on [facility])([facility] Internal Medicine ) OUTPATIENT [id number] follow up with pcm WILLAM CRUZ 12/29 Released w/o Limitations [address] [place] [address] Group [employer])(S cott Interna l Medicin e Tm) [address] [place] [address] Edson [facility])([facility] Internal Medicine ) TELE CONSULT [id number] WILLAM Lopez 01/[address] [place] [address] Edson [facility])(S cott Interna l Medicin e Tm) [address] [place] [address] Edson [facility])([facility] Internal Medicine ) TELE CONSULT [id number] rx refill WALTER PEREZ 02/[address] [place] [address] Group [employer]dson Sylvester [facility])(S cott Interna l Medicin e Tm) [facility] Medical [facility] Edson [facility])([facility] Internal Medicine ) TELE CONSULT [id number] Pt not sure what to do - Loreto - [phone] - tsg HIREN NOONAN 03/[address] [place] [address] Edson FERNANDES [facility])(S cott Interna l Medicin e Tm) [facility] Medical [facility] Edson [facility])([facility] Internal Medicine ) TELE CONSULT [id number] Order Labs/Co x/[id number] 501/KMR WALTER PEREZ 05/[address] [place] [address])(S cott Interna l Medicin e Tm) [address] [place] [address])([facility] Internal Medicine ) OUTPATIENT [id number] f/u cholest jannet/ thyroid / MEDS [id number] WILLAM CRUZ 06/02 Released w/o Limitations [address] [place] [address])(S cott Interna l Medicin e Tm) [address] [place] [address])([facility] Medicine ) TELE CONSULT [id number] Notes Entered by: LEONIE PENDLETON 24 Apr 2012 1451 ------- ------- ------- ------- -- Med refill, Lab order HIREN Evans 04/[address] [place] [address])(S cott Interna l Medicin e Tm) [address] [place] [address])([facility] ) OUTPATIENT [id number] f/u for medicat ions [id number] WILLAM CRUZ 05/17 Released w/o Limitations [address] [place] [address])([facility] Interna l Medicin e Tm) [address] [place] [address])([facility] Medicine ) TELE CONSULT [id number] Notes Entered by: MARIA C MONTAÑO 29 May 2012 1038 ------- ------- ------- ------- -- [facility]- BP Checks HIREN NOONAN 05/[address] [place] [address])([facility] cott Interna l Medicin e Tm) [address] [place] [address])([facility] Medicine ) TELE CONSULT [id number] Notes Entered by: AIXA BETANCUR 30 Jul 2012 1045 ------- ------- ------- ------- -- Network Results - GASTROE NTEROLO GY 07/04/12 WILLAM CRUZ 07/[address] [place] [address])([facility] Interna l Medicin e Tm) [address] [place] [address])([facility] ) TELE CONSULT [id number] Notes Entered by: BUSHRA ARBOLEDA 31 Oct 2012 1054 ------- ------- ------- ------- -- Network Results OPHTHAL MOLOGY - 3 WILLAM CRUZ 10/[address] [place] [address])(S cott Interna l Medicin e Tm) [address] [place] [address])([facility] Medicine ) TELE CONSULT [id number] Notes Entered by: LEONIE PENDLETON 26 Mar 2013 0921 ------- ------- ------- ------- -- Lab request Loreto [id number] ALICDES LUGO 03/[address] [place] [address])([facility] cott Interna l Medicin e Tm) [address] [place] [address])([facility] Medicine ) OUTPATIENT [id number] yearly follow up [id number] WILLMA CRUZ 03/31 Released w/o Limitations [address] [place] [address])([facility] Interna l Medicin e Tm) [address] [place] [address])([facility] Medicine ) TELE CONSULT [id number] Notes Entered by: Oli ARECHIGA 19 Jun 2013 0933 ------- ------- ------- ------- -- Gaurav Cruz WALTER PEREZ 06/[address] [place] [address])([facility] Interna l Medicin e Tm) [address] [place] [address])([facility] Internal Medicine ) TELE CONSULT [id number] Notes Entered by: YOLA CARPENTER 23 Dec 2013 1307 ------- ------- ------- ------- -- Network Results - DERMATO LOGY - 08/11/13 YOLA CHAWLA 12/[address] [place] [address])([facility] Interna l Medicin e Tm) [address] [place] [address])([facility] Internal Medicine ) TELE CONSULT [id number] Notes Entered by: LUCIA PARIKH ELS 26 Jan 2014 1047 ------- ------- ------- ------- -- Lab Test Request //[facility]// 667.050 1 ALCIDES LUGO 01/[address] [place] [address])([facility] Intern[facility] l Medicin e Tm) [address] [place] [address])([facility] ) OUTPATIENT [id number] physica l PETTY PEREZ 02/18 Released w/o Limitations [address] [place] [address])([facility] Intern[facility] l Medicin e Tm) [address] [place] [address])([facility] ) TELE CONSULT [id number] Notes Entered by: Oli PEREZ 29 Apr 2014 1750 ------- ------- ------- ------- -- Laborat ory ROLDAN Willis 04/[address] [place] [address])([facility] Interna l Medicin e Tm) [address] [place] [address])([facility] Internal Medicine ) TELE CONSULT [id number] Notes Entered by: GANESH KLINE 23 Jun 2014 1433 ------- ------- ------- ------- -- New referra l/medic ation concern /abdias / ROLDAN BARRON 06/[address] [place] [address])([facility] cott Interna l Medicin e Tm) [address] [place] [address])([facility] Internal Medicine ) OUTPATIENT [id number] Tinglin g bilat arms/le gs X 1 week VÁZQUEZRADHIKA V 06/24 Released w/o Limitations [address] [place] [address] Edson FERNANDES [facility])(S cott Interna l Medicin e Tm) [address] [place] [address] Edson Sylvester [facility])([facility] Internal Medicine ) OUTPATIENT [id number] f/u lab results ERIN VÁZQUEZLY V 07/08 Released w/o Limitations [address] [place] [address] Edson Sylvester [facility])(S cott Interna l Medicin e Tm) [address] [place] [address] Edson Sylvester [facility])([facility] Internal Medicine ) TELE CONSULT [id number] Notes Entered by: SABINO HORAN 12 Aug 2014 0915 ------- ------- ------- ------- -- Network Results -GASTRO ENTEROL OGY 08/11/14 VÁZQUEZRADHIKA ANDINO V 08/[address] [place] [address] Edson FERNANDES [facility])(S cott Interna l Medicin e Tm) [address] [place] [address] Edson Sylvester [facility])([facility] Internal Medicine ) TELE CONSULT [id number] Notes Entered by: SABINO HORAN 14 Aug 2014 1025 ------- ------- ------- ------- -- Network Results -GASTRO ENTEROL OGY 08/11/14 RADHIKA MALDONADO V 08/[address] [place] [address] Edson FERNANDES [facility])(S cott Interna l Medicin e Tm) [address] [place] [address] Edson Sylvester [facility])([facility] Internal [facility]) TELE CONSULT [id number] Notes Entered by: SABINO HORAN 15 Sep 2014 1155 ------- ------- ------- ------- -- Network Results -GASTRO ENTEROL OGY 08/26/14 RADHIKA VÁZQUEZ V 09/[address] [place] [address] Edson FERNANDES ([facility])(S cott Interna l Medicin e Tm) [address] [place] [address] Edson FERNANDES [facility])([facility] Internal Medicine ) OUTPATIENT [id number] f/u lab work SAILAJA ELLIOTT Rodney 10/21 Released w/o Limitations [address] [place] [address] [facility]dson [facility])(S cott Interna l Medicin e Tm) [address] [place] [address])([facility] Internal Medicine ) TELE CONSULT [id number] Notes Entered by: MARLINE YOLA Chairez 22 Oct 2014 1416 ------- ------- ------- ------- -- Network Results -GASTRO ENTEROL OGY 10/13/14 STEFANIESAILAJA KAUR Rodney 10/[address] [place] [address] Edson [facility])(S cott Interna l Medicin e Tm) [address] [place] [address])([facility] Internal Medicine ) TELE CONSULT [id number] Notes Entered by: MARLINE YOLA Chairez 30 Nov 2014 1338 ------- ------- ------- ------- -- Network Results -GASTRO ENTEROL OGY 11/24/14 AYESHA COOK V 11/[address] [place] [address])([facility] cott Interna l Medicin e Tm) [address] [place] [address])([facility] Internal Medicine ) TELE CONSULT [id number] Notes Entered by: [place] OROZCO 08 Jan 2015 1120 ------- ------- ------- ------- -- Request for Lab Order / Eunice / WALTER PEREZ 01/[address] [place] [address])([facility] Interna l Medicin e Tm) [address] [place] [address])([facility] Internal Medicine ) OUTPATIENT [id number] f/u Talons AYESHA COOK V 01/23 Released w/o Limitations [address] [place] [address])([facility] Interna l Medicin e Tm) [address] [place] [address])([facility] Medicine ) TELE CONSULT [id number] Notes Entered by: TARIQ WELLS 06 Aug 2015 0954 ------- ------- ------- ------- -- Lab Request (appt w/PCM on 12 August)/Eu genio [id number] LUCITA HAIR 08/05 Released w/o Limitations [address] [place] [address] Group [facility])(S cott Interna l Medicin e Tm) [facility] Medical Group [facility])([facility] Internal Medicine Tm) OUTPATIENT [id number] f/u on meds 667.050 1 JOHANNA SEPULVEDA 08/11 Released w/o Limitations [address] [place] [address] Group [facility])(S cott Interna l Medicin e Tm) [address] [place] [address])([facility] Internal Medicine ) TELE CONSULT [id number] Notes Entered by: Rashard PIERCE 23 Aug 2015 0926 ------- ------- ------- ------- -- Medicat ion Inquiry / Vadim / or # LUCITA HAIR 08/22 Referred for Appointment [address] [place] [address] Group [facility])(S cott Interna l Medicin e Tm) [address] [place] [address])([facility] Internal Medicine ) TELE CONSULT [id number] Notes Entered by: KISHOR FORREST 19 Nov 2015 1429 ------- ------- ------- ------- -- Order labs - Bridge Rx - Vadim - - [facility] ROLDAN BARRON 11/[address] [place] [address] Group [facility])(S cott Interna l Medicin e Tm) [address] [place] [address])([facility] Medicine ) OUTPATIENT [id number] F/U meds/JOHANNA Rockwell 12/05 Released w/o Limitations [address] [place] [address] Group [facility])(S cott Interna l Medicin e Tm) [address] [place] [address])([facility] Medicine ) TELE CONSULT [id number] Notes Entered by: JOHANNA SEPULVEDA 15 Dec 2015 1405 ------- ------- ------- ------- -- ROLDAN Joe 12/[address] [place] [address])(S cott Interna l Medicin e Tm) [address] [place] [address])([facility] Internal Medicine ) TELE CONSULT [id number] Notes Entered by: JOHANNA SEPULVEDA 21 Jan 2016 1612 ------- ------- ------- ------- -- ROLDAN Banda 01/[address] [place] [address])([facility] cott Interna l Medicin e Tm) [address] [place] [address])([facility] Internal Medicine ) TELE CONSULT [id number] Notes Entered by: GEORGE MITCHELL RET 10 Jul 2016 0943 ------- ------- ------- ------- -- Med Benigno /Marie magana/ ADELE Page 07/10 Referred for Appointment [address] [place] [address] Group [facility])(S cott Interna l Medicin e Tm) [address] [place] [address])([facility] Internal Medicine ) TELE CONSULT [id number] Notes Entered by: MAGNO GARDNER 11 Oct 2016 0924 ------- ------- ------- ------- -- Med Benigno /SAMMY Meadows/[id number] ADELE ROSENBERG 10/11 Referred for Appointment [facility] Medical [facility])(S cott Interna l Medicin e Tm) [address] [place] [address])([facility] Internal Medicine ) OUTPATIENT [id number] f/u labs annual visit/m ed LAN Talavera 10/31 Released w/o Limitations [address] [place] [address])([facility] Intern[facility] l Medicin e Tm) [address] [place] [address])([facility] Internal Medicine ) OUTPATIENT [id number] Sore throat/ headach e/cough /chest congest ion [id number] LAN NEWBERRY 01/01 Released w/o Limitations [address] [place] [address])([facility] Interna l Medicin e Tm) [address] [place] [address])([facility] Internal Medicine ) TELE CONSULT [id number] Notes Entered by: GEORGE MITCHELL RET 25 Jan 2017 1058 ------- ------- ------- ------- -- Rx Renewal /[facility]my [place]/ [facility] EMILY LAURENT 01/25 Referred for Appointment [address] [place] [address])([facility] cott Interna l Medicin e Tm) [address] [place] [address])([facility] Medicine ) TELE CONSULT [id number] Notes Entered by: TARIQ WELLS 19 Jul 2017 1003 ------- ------- ------- ------- -- Med Renewal /Rusty / ROLDAN BARRON 07/[address] [place] [address])([facility] Interna l Medicin e Tm) [address] [place] [address])([facility] Internal Medicine ) OUTPATIENT [id number] Annual Visit MELANY VANCE 09/11 Released w/o Limitations [address] [place] [address])([facility] Interna l Medicin e Tm) [address] [place] [address])([facility] Medicine ) TELE CONSULT [id number] Notes Entered by: ZEE GARCIA 02 Jan 2018 1130 ------- ------- ------- ------- -- Med Renewal Request Med Inquiry / Lewis/ [phone] - ROLDAN Burnham 01/02 Medication Refill Forwarded [facility] Medical Group [facility])(S cott Interna l Medicin e Tm) [address] [place] [address] Group [facility])([facility] Internal Medicine ) TELE CONSULT [id number] Notes Entered by: [place] OROZCO 15 Apr 2018 1024 ------- ------- ------- ------- -- Med Renewal / Lewis / - sgj JACKELINE KLINE 04/15 Medication Refill Forwarded [address] [place] [address] Group [facility])(S cott Interna l Medicin e Tm) [address] [place] [address])([facility] Internal Medicine ) TELE CONSULT [id number] Notes Entered by: [place] OROZCO 22 Jul 2018 1136 ------- ------- ------- ------- -- Med Renewal / Lewis / - sgj EMILY LAURENT 07/22 Referred for Appointment [address] [place] [address] Group [facility])(S cott Interna l Medicin e Tm) [address] [place] [address])([facility] Internal Medicine ) TELE CONSULT [id number] Notes Entered by: KISHOR FORREST 17 Jan 2019 1055 ------- ------- ------- ------- -- Rx renewal - Lewis - - tsg YAS HERNANDEZ 01/[address] [place] [address])([facility] Interna l Medicin e Tm) [address] [place] [address])([facility] Internal Medicine ) OUTPATIENT [id number] blood work results ,[phone] [id number] COLUMBA AGUILAR 01/27 Released w/o Limitations [address] [place] [address])([facility] cott Interna l Medicin e Tm) [address] [place] [address])([facility] Internal Medicine ) TELE CONSULT [id number] Notes Entered by: LAUREANO HOLT 23 Jun 2019 0926 ------- ------- ------- ------- -- Rx Renewal and Lab Work Jarrett lynch/April gastelum/ ADELE HOGUE 06/22 Medication Refill Forwarded [address] [place] [address])([facility] cott Interna l Medicin e Tm) [address] [place] [address])([facility] Internal Medicine ) TELE CONSULT [id number] Notes Entered by: DELILAH AGUILAR 17 Jul 2019 1022 ------- ------- ------- ------- -- Hyperli pidemia COLUMBA AGUILAR 07/[address] [place] [address])([facility] cott Interna l Medicin e Tm) [address] [place] [address])([facility] Internal Medicine ) OUTPATIENT [id number] virtual f/u lipid lab pt contact # COLUMBA AGIULAR 07/27 Released w/o Limitations [address] [place] [address])([facility] Interna l Medicin e Tm) [address] [place] [address])([facility] Internal Medicine ) TELE CONSULT [id number] Notes Entered by: ZEE GARCIA 10 Dec 2019 1116 ------- ------- ------- ------- -- Med Renewal Request / Juan/ - aj ADELE HOGUE 12/09 Referred for Appointment [address] [place] [address])(S cott Interna l Medicin e Tm) [address] [place] [address])([facility] Internal Medicine ) OUTPATIENT [id number] Virtual annual and labs LILLIANA VALENCIA 12/25 Released w/o Limitations [address] [place] [address])([facility] cott Interna l Medicin e Tm) [address] [place] [address])([facility] Internal Medicine ) TELE CONSULT [id number] Notes Entered by: JHOANA VEGA 15 Jan 2020 1005 ------- ------- ------- ------- -- BP log/[facility] en/6186 [id number] ROLDAN BARRON 01/14 Other Not Elsewhere Classified [address] [place] [address])([facility] [address] [place] [address])([facility] ) TELE CONSULT [id number] 2 Notes Entered by: CARLOS MANUEL CEE 31 May 2020 0856 ------- ------- ------- ------- -- med refill/ [facility]/6 [phone] EMILY Quinn 05/31 Other Not Elsewhere Classified [address] [place] [address])([facility] [address] [place] [address])([facility] ) TELE CONSULT [id number] 7 Notes Entered by: CARLOS MANUEL CEE 05 Nov 2020 1024 ------- ------- ------- ------- -- med refill/ [facility]/[phone] ADELE Lyon 11/05 Medication Refill Forwarded [address] [place] [address])([facility] [address] [place] [address])([facility] ) TELE CONSULT [id number] 5 Notes Entered by: GEORGE MITCHELL RET 14 Dec 2020 1014 ------- ------- ------- ------- -- Lab Order for yearly appt n/ *EMILY Abebe 12/14 Other Not Elsewhere Classified [address] [place] [address])([facility] [address] [place] [address])([facility] ) OUTPATIENT [id number] 2 yearly exam SNOWDEN LEONID MINGSally 12/20 Released w/o Limitations [address] [place] [address])([facility] [address] [place] [address])([facility] ) TELE CONSULT [id number] 1 Notes Entered by: TARIQ WELLS 26 Apr [id number] ------- ------- ------- ------- -- Lab Request and Med Renewal /Dhaval/Wendy 8667.0 BITA PIZARRO 04/26 Medication Refill Forwarded [address] [place] [address])([facility] [address] [place] [address])([facility] ) OUTPATIENT [id number] 4 VIRTUAL F/U A1C, BP reading s BERNA KELLEY 05/03 Released w/o Limitations [address] [place] [address])([facility] [address] [place] [address])([facility] ) TELE CONSULT [id number] 8 Notes Entered by: ELPIDIO WEBSTER 11 Oct 202143 ------- ------- ------- ------- -- Medicat ion Refills JOSHUA WEBSTER 10/[address] [place] [address])([facility] [address] [place] [address])([facility] ) TELE CONSULT [id number] 6 Notes Entered by: SABINO ZENDEJAS 13 Dec 202117 ------- ------- ------- ------- -- Out of Meds RX Renewal Request / Cuate saenz / JOSHUA WEBSTER 12/[address] [place] [address])([facility] [address] [place] [address])([facility] ) OUTPATIENT [id number] 2 F2F OVERDUE ANNUAL APPT TRUONG OJEDA 01/09 Released w/o Limitations [address] [place] [address] Edson [facility])([facility]) [address] [place] [address])([facility] ) TELE CONSULT [id number] 4 Notes Entered by: TARIQ WELLS 10 Feb 202212 ------- ------- ------- ------- -- Prescri ptions not in Pharmac srikanth/Genaro wolf/Wendy 8.667.0 501 or BRICE ALICIA 02/10 Other Not Elsewhere Classified [address] [place] [address])([facility] [address] [place] [address])([facility] ) TELE CONSULT [id number] 6 Notes Entered by: CHRISTAL VALDES 03 Mar 2022 1001 ------- ------- ------- ------- -- Bone Density EMILY LAURENT 03/03 Referred for Appointment [address] [place] [address])([facility] [address] [place] [address])([facility] ) OUTPATIENT [id number] 3 Virtual bone scan results TRUONG OJEDA 03/15 Released w/o Limitations [address] [place] [address])([facility] [address] [place] [address])([facility] ) TELE CONSULT [id number] 1 Notes Entered by: MAILE PIZARRO 09 May 2022 0956 ------- ------- ------- ------- -- Med Renewal Request /LACHELLE SORIA/ GIL COULTER 05/09 Medication Refill Forwarded [employer] [facility] FERNANDES ([facility])([facility]) [facility] Outpatient [id number] KRISHAN HEAD DBRUBAKER 05/01 Discharge Disposition: Home or Self Care 0055A-[address] [facility] Between Visit [id number] 05/08 Discharge Disposition: Home or Self Care 0055C-3 [facility] Between Visit [id number] 05/08 Discharge Disposition: Home or Self Care 0055C-3 [facility] Outpatient [id number] REE JTODD 06/26 Discharge Disposition: Home or Self Care 0055A-[address] [facility] 6130C-Af- C-[facility] Between Visit [id number] 06/29 Discharge Disposition: Home or Self Care 6130C-A f-C-[facility] Procedures Combined list of: 1) Procedures from [...] WAIVER SERVICES; NOT OTHERWISE SPECIFIED (NOS) 022 [facility] TELE ASSESS & MGT SRV PROV QUAL [...] NXT 24H/SOON APT; 11-20 MIN MED DIS DoD WAIVER SERVICES; NOT OTHERWISE SPECIFIED (NOS) [...] 24 HR/SOON APT;5-10 MIN MED DIS 010 [facility] IMMUNIZATION ADMINISTRATION (INCLUDES PERCUTANEOUS, INTRADERMAL, SUBCUTANEOUS, OR INTRAMUSCULAR INJECTIONS); EACH ADDITIONAL VACCINE (SINGLE OR COMBINATION VACCINE/TOXOID) 006 [facility] VISUAL FIELD EXAMINATION, UNI OR BILATERAL, WITH MEDICAL DIAGNOSTIC EVAL; INTERMEDIATE EXAM (EG, AT LEAST 2 ISOPTERS ON GOLDMANN PERIMETER, OR SEMIQUANT, AUTO SUPRATHRESHOLD SCREEN PROGRAM, MUNROE 006 [facility] UNLISTED SPECIAL SERVICE, PROCEDURE OR REPORT 006 [facility] Non-Physician Phone Call To Patient/Provider Brief (5-10min) Non-Physician Phone Call To Patient/Provider Brief (5-10min) [id number] [facility] Non-Physician Phone Call To Patient/Provider Brief (5-10min) Non-Physician Phone Call To Patient/Provider Brief (5-10min) [phone] [facility] Non-Physician Phone Call To Patient/Provider Brief (5-10min) Non-Physician Phone Call To Patient/Provider Brief (5-10min) [phone] [facility] Non-Physician Phone Call To Patient/Provider Brief (5-10min) Non-Physician Phone Call To Patient/Provider Brief (5-10min) [phone] [facility] Non-Physician Phone Call To Patient/Provider Brief (5-10min) Non-Physician Phone Call To Patient/Provider Brief (5-10min) [phone] ADELE ROSENBERG DoD Non-Physician Phone Call To Patient/Provider Brief (5-10min) Non-Physician Phone Call To Patient/Provider Brief (5-10min) [phone] [facility] Non-Physician Phone Call To Patient/Provider Brief (5-10min) Non-Physician Phone Call To Patient/Provider Brief (5-10min) [phone] [facility] Non-Physician Phone Call To Patient/Provider Brief (5-10min) Non-Physician Phone Call To Patient/Provider Brief (5-10min) [phone] [facility] Non-Physician Phone Call To Pt/Provider Intermed (11-20 min) Non-Physician Phone Call To Pt/Provider Intermed (11-20 min) [phone] [facility] Non-Physician Phone Call To Patient/Provider Brief (5-10min) Non-Physician Phone Call To Patient/Provider Brief (5-10min) [phone] [facility] 24-Hour Ambulatory Blood Pre ure Monitoring [address] [facility] Skin Tag Removal Up To 15 Lesions Skin Tag Removal Up To 15 Lesions [id number] CYNDI PADGETT Destruction Of Benign Lesion By Cryosurgery [address] [facility] Non-Physician Phone Call To Patient/Provider Brief (5-10min) Non-Physician Phone Call To Patient/Provider Brief (5-10min) [phone] [facility] Hepatitis A Vaccine Adult Dosage (Intramuscular Use) Hepatitis A Vaccine Adult Dosage (Intramuscular Use) 19407 006 MICHELLE BELTRAN Hepatitis B Vaccine (Active); 20 Years and Above 006 MICHELLE BELTRAN Immunization Administration One Vaccine Immunization Administration One Vaccine 15379 006 MICHELLE BELTRAN Immunization Administration Each Additional Vaccine 006 MICHELLE BELTRAN Ophthalmological New Patient Start Comprehensive Care Ophthalmological New Patient Start Comprehensive Care 60210 006 WYATT NEWSOME Determination Of Refractive State Determination Of Refractive State 92805 006 W[place]ATT NEWSOME Visual Hernandez Test Intermediate Examination Visual Hernandez Test Intermediate Examination [address] [address] [facility] Non-Physician Phone Call To Pt/Provider Intermed (11-20 min) Non-Physician Phone Call To Pt/Provider Intermed (11-20 min) [id number] [facility] Non-Physician Phone Call To Patient/Provider Brief (5-10min) Non-Physician Phone Call To Patient/Provider Brief (5-10min) [id number] STEPHANIEKAREN DoD Waiver services; not otherwise specified (NOS) Waiver services; not otherwise specified (NOS) T[address] 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 Social History Type Response Date Comment Sourc e Sex Representation 06/01/2022 Unknow n Organization Tobacco Cigarette use: Never-cigarette user. Other Tobacco use: Never-other tobacco user (not cigarettes). Ambulatory Pharmacy Sexual Orientation Ambula tory Pharmacy Gender identity Ambulator y Pharmacy This section is an empty social history section. [facility] Assessment and Plan Combined list of future [...] Author: KRISHAN CEJA MD Date: 03/04/24 1. Annual wellness exam Reviewed most recent labs, imaging, history, and prev med. ROS and physical exam unremarkable. Discussed diet and exercise recommendations (Low carb diet, Mediterranean diet, whole food plant based as options). 150 min/wk vigorous exercise per ACC/AHA. Preventative Medicine: # General Wellness. -Breast CA Screening: Birads 2021; due for repeat, advised to schedule -Cervical CA Screening: s/p Hysterectomy -Colon CA Screening: colitis 2014 no polyps 3 yr f/u but lost to f/u, referral placed last year but she has not yet made an appt. Advised to schedule. -Lung CA: Does not meet criteria (non-smoker) -Osteoporosis Screening: Known osteoporosis (osteopenia with high FRAX risk); last scan in 2021. Repeat next year. -AAA Screening: Not indicated as patient is female -Diabetes Screening: Patient is Known pre-diabetic (discussed in assessment/plan) -Lipid Screening: On statin -ASCVD: 17% -Hepatitis C (lifetime): Negative (07/01/2014) # Vaccinations: -Influenza: Advised to complete annually -Pneumococcal: PCV13: 09/10/2018 PPSV23: 12/21/2020 X2 -Tetanus: Last 03/07/2018 -Zoster: 05/11 2021 -COVID: J&J 06/11/2020, Booster on 02/26/2021 2. Essential hypertension Goal <130/80 per ACC/AHA. Home readings and clinic at goal; asymptomatic. BMP unremarkable. - continue losartan 50 mg daily - Advised following the DASH diet or a diet low in sodium (<2400mg sodium daily) - Advised to keep daily blood pressure log and to call if readings are consistently above or below goal for >3 days or if symptoms develop 3. Hyperlipidemia LDL 80. ASCVD risk: 17%. On appropriate moderate intensity statin for primary prevention. - Atorvastatin 20 mg at bedtime. 4. Prediabetes Well controlled with no medications. Last A1c was: 6.2%, goal A1c < 6.5%. To assist with glycemic control and cardiovascular risk, patient should exercise at least 150 min/week. - Reduce processed sugar and carbohydrates - Annual A1c 5. Osteoporosis CT bone scan in 2021 showed osteopenia with FRAX scores of 20% and 5%, respectively. Vitamin D was 25 at the time. CMP, SPEP, and PTH were WNL. - Continue alendronate 70mg weekly, ok to take at the same time as levothyroxine - Repeat bone scan in 3 years - Counseled on ways to increase vitamin D level including eating fortified foods and increasing sun exposure 6. Vitamin D deficiency Vitamin D 27.6. Still low on 1000 units daily. - Increase to 2000 IU daily 7. Hypothyroidism TSH . She denies symptoms of hypothyroidism (constipation, dry skin, hair loss, etc.) or hyperthyroidism (fast heart rate, palpitations, diarrhea, anxiety). [...] note. Krishan Ceja MD Capt, [facility], [facility] Internal Medicine Staff Physician Extracted from:Title: 0055C IM - Osteoporosis/vitamin d deficiency (virtual) Author: KRISHAN CEJA MD Date: 05/31/[address] bone scan in 2021 showed osteopenia with FRAX scores of 20% and 5%, respectively. Vitamin D was 25 at [...] Maintenance, 1 cap(s) Oral Daily,Instr:with food, Pharmacy: [facility] [Not filled] Vitamin D 25 Hydroxy Level 2. Vitamin D deficiency See above Ordered: alendronate(alendronate 70 [...] findings in this note. Krishan Ceja MD [facility], [facility], [facility] Internal Medicine Staff Physician Extracted [...] air conditioner or fan, if available. Apply truq-bhl-auldbjf and prescription medicines only as told by [...] well after activity or exercise. Use a unhairing machine operator on a cool setting to dry between [...] drying your skin and with medicines. Apply semk-cvv-ukbuwjf and prescription medicines only as told by your health care provider. Keep all follow-up visits as told by your health care provider. This is important. This information is not intended to replace advice given to you by your health care provider. Make sure you discuss any questions you have with your health care provider. Document Revised: 06/07/2022 Document Reviewed: 01/09/2022 [email or web address] Patient Education 2022 [place]. Extracted from:Title: 0055C Clinic - Annual visit/ulcerative colitis/osteoporosis Author: KRISHAN CEJA MD Date: 05/23/23 1. Annual wellness exam Reviewed most recent labs, imaging, history, and prev med. ROS and physical exam unremarkable. Discussed diet and exercise recommendations (Low carb diet, Mediterranean diet, whole food plant based as options). 150 min/wk vigorous exercise per ACC/AHA. Preventative Medicine: # General Wellness. -Breast CA Screening: Birads 2021; due for repeat -Cervical CA Screening: s/p Hysterectomy -Colon CA Screening: colitis 2014 no polyps 3 yr f/u but lost to f/u, referral placed -Lung CA: Does not meet criteria (non-smoker) -Osteoporosis Screening: Known osteoporosis (osteopenia with high FRAX risk); last scan in 2021 -AAA Screening: Not indicated as patient is female -Diabetes Screening: Patient is Known pre-diabetic (discussed in assessment/plan) -Lipid Screening: On statin -ASCVD: 14.4% -Hepatitis C (lifetime): Negative (07/01/2014) # Vaccinations: -Influenza: Advised to complete annually -Pneumococcal: PCV13: 09/10/2018 PPSV23: 12/21/2020 X2 -Tetanus: Last 03/07/2018 -Zoster: 05/11 2021 -COVID: J&J 06/11/2020, Booster on 02/26/2021 2. Essential hypertension Goal <130/80 per ACC/AHA. Home readings and clinic at goal; asymptomatic. BMP unremarkable. - continue losartan 50 mg daily - Advised following the DASH diet or a diet low in sodium (<2400mg sodium daily) - Advised to keep daily blood pressure log and to call if readings are consistently above or below goal for >3 days or if symptoms develop 3. Hyperlipidemia LDL 79. ASCVD risk: 14.4%. On appropriate moderate intensity statin for primary prevention. - Atorvastatin 20 mg at bedtime. 4. Prediabetes Well controlled with no medications. Last A1c was: 6.1%, goal A1c < 6.5%. To assist with glycemic control and cardiovascular risk, patient should exercise at least 150 min/week. - Reduce processed sugar and carbohydrates - Annual A1c 5. Osteoporosis CT bone scan in 2021 showed osteopenia with FRAX scores of 20% and 5%, respectively. Vitamin D was 25 at [...] at this time) Ordered: Protein Electrophoresis Serum [id number] PTH Intact+Calcium [id number] Vitamin D 25 Hydroxy Level 6. Hypothyroidism Current Synthroid dosing is at 50mcg daily, with most recent TSH of 1.240. Patient denies symptoms of hypothyroidism (constipation, dry skin, hair loss, etc.) or hyperthyroidism (fast heart rate, palpitations, diarrhea, anxiety). - Continue current therapy 7. Intertrigo Present over the lower abdominal skin fold. [...] 4 weeks., [facility]: [facility]... 8. Ulcerative colitis Previously in remission but she reports [...] note. Krishan Ceja MD Capt, [facility], [facility] Internal Medicine Staff Physician Extracted from:Title: 0055C Clinic - Medication refills (virtual) Author: KRISHAN CEJA MD Date: 05/15/23 1. Other specified counseling Medications reconciled and refilled. She has annual labs ordered and will see me on the for an annual appt. She [...] 1 tab(s) Oral Daily,Instr:for blood pressure, Pharmacy: [facility] [Not filled] Orders: TSH w/ Reflex [...] findings in this note. Krishan Ceja MD [facility], [facility], [facility] Internal Medicine Staff Physician Extracted from:Title: [facility] REVENUE ACCOUNTING MANAGER Office Clinic Note Author: GUERLINE YING, DO Date: 04/17/23 1. Menopausal and female climacteric states Counseled patient on [...] 2 weeks, then twice weekly therea... 2. Postmenopausal atrophic vaginitis Ordered: conjugated estrogens topical(conjugated estrogens 0.625 mg/g vaginal cream with applicator), 0.5 g, Vaginal, every evening, Apply 0.5g vaginally every night for 2 weeks, then twice weekly thereafter, # 30 g, 3 total refill(s), Maintenance, 0.5 g Vaginal every evening,Instr:Apply 0.5g vaginally every night for 2 weeks, then twice weekly therea... 02/05/2025 [id number] Functional Status Combined list of recent functional and cognitive assessments recorded at [facility] and Veterans Affairs (VA).VA Functional [place] Measurement (FIM) Scale: 1 = Total Assistance (Subject = 0% +), 2 = Maximal Assistance (Subject = 25% +), 3 = Moderate Assistance (Subject = 50% +), 4 = Minimal Assistance (Subject = 75% +), 5 = Supervision, 6 = Modified [place] (Device), 7 = Complete [place] (Timely, Safely). Assessment Date/Time Source Assessment Type Assessment Skill Assessment Score Assessment Details No data available for this section
--- OUTSIDE RECORDS SUMMARY | 2025-02-05 02:05 | XMS_ITS | Clinical Summary ---
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 Active losartan (COZAAR) 50 [...] (six) hours as needed for pain Active axfqs-4-rvo-epa -dpa-fish oil 1,050-1,200 mg capsule 1 capsule [...] on file Legal 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 Gender Identity Not on file Sexual Orientation Not on file Obstetrics History Last Filed Vital Signs Vital Sign Reading Time Taken Comments Blood Pressure 120/70 10/13/2021 10:53 AM CDT Pulse 81 10/13/2021 10:53 AM CDT Temperature 36.2 C (97.1 F) 06/16/2020 11:09 AM REWRITE EDITOR Respiratory Rate - - Oxygen Saturation 98% 10/13/2021 10:53 AM CDT Inhaled Oxygen Concentration - - Weight 97.5 kg (215 lb) 10/13/2021 10:53 AM CDT Height 170.2 cm (5' 7) 10/13/2021 10:53 AM CDT Body Mass Index 33.67 10/13/2021 10:53 AM CDT Plan of Treatment Not on file Insurance MEDICARE FOR LIFE MEDICARE FOR LIFE Care Teams [employer] Relationship Specialty Start Date End Date Rolando Martinez MD [address] [place] [address] PCP - General Internal Medicine 05/25/20
--- OUTSIDE RECORDS SUMMARY | 2025-02-05 02:05 | XMS_ITS ---
Author Organization Unknown ENCOUNTERS Encounter Performer Location Date Diagnosis Diagnosis Status Outpatient [facility] [address] [place] [address] [id number] Outpatient [facility] [address] [place] [address] [id number] SHANIQUE Outpatient [facility] [address] [place] [address] [id number] SHANIQUE Outpatient [facility] [address] [place] [address] [id number] SHANIQUE *Note: Encounters from your own facility or health system may be excluded. Allergies, Adverse Reactions, Alerts Allergen Type Severity Identification Date propoxyphene drug allergy 2 [id number] Medications Name Date Quantity Days Supplied GPI Number
[2025-02-05 08:10] VITALS: BP 144/90; PULSE 95; RESP 19; TEMP 36.3; O2SAT 99
--- NOTE | 2025-02-05 08:15 | WPDANESEPPF ---
Anes - Initial Pre Proc Eval Procedure: Operation Date: 02/05/25 09:30 Proposed Procedures p Diagnostic Colonoscopy - Beka Martino MD Date/Time: 02/05/25 08:15 Surgeon: Beka Martino MD Pre Op Diagnosis: Ulcerative colitis, unspecified, Patient Data Age: 74 Gender: F Height: 1.7 m Weight: 94.4 kg Last Vital Signs Temp 97.3 F L 02/05/25 08:10 Pulse 95 02/05/25 08:10 Resp 19 02/05/25 08:10 BP 144/90 H 02/05/25 08:10 Pulse Ox 99 02/05/25 08:10 O2 Del Method Room Air 02/05/25 08:10 Allergies Allergy/AdvReac Type Severity Reaction Status Date / Time propoxyphene Allergy Mild Other Verified 02/05/25 08:09 bee stings Allergy Intermediate Swelling Uncoded 01/27/25 08:53 Home Medications ?Medication ?Instructions ?Recorded ?Confirmed ?Type calcium carbonate 600 mg PO BID 04/13/23 02/05/25 History acetaminophen 325 mg tablet 325 mg PO Q6H PRN pain 08/18/24 01/27/25 History (Tylenol) cholecalciferol (vitamin D3) 25 25 mcg PO DAILY 08/18/24 02/05/25 History mcg (1,000 unit) capsule cinnamon bark 500 mg capsule 500 mg PO DAILY 08/18/24 02/05/25 History (Cinnamon) epinephrine 0.3 mg/0.3 mL 0.3 ml subcut ONCE PRN anaphylaxis 08/18/24 01/27/25 History injection, auto-injector glucosamine HCl 1,500 mg tablet 1,500 mg PO DAILY 08/18/24 02/05/25 History vitamin B complex 1 tablet PO DAILY 08/18/24 02/05/25 History alendronate 70 mg tablet 70 mg PO WEEKLY #12 tabs 01/12/25 01/27/25 Rx aspirin 81 mg chewable tablet 81 mg PO DAILY 01/12/25 02/05/25 History atorvastatin 20 mg tablet 20 mg PO DAILY #90 tabs 01/12/25 02/05/25 Rx conjugated estrogens 0.625 mg/gram 0.3125 mg topical 2XW PRN rash #30 01/12/25 01/27/25 Rx vaginal cream (Premarin) grams diclofenac sodium 1 % topical gel 4 g topical QID #50 grams 01/12/25 01/27/25 Rx fluticasone propionate 50 2 spray intranasal DAILY #16 grams 01/12/25 01/27/25 Rx mcg/actuation nasal spray,suspension folic acid 1 mg tablet 1 mg PO DAILY #90 tabs 01/12/25 02/05/25 Rx losartan 50 mg tablet 50 mg PO DAILY #90 tabs 01/12/25 02/05/25 Rx nystatin 100,000 unit/gram topical 1 applic topical BID #60 grams 01/12/25 01/27/25 Rx powder cetirizine 10 mg tablet 10 mg PO DAILY PRN allergy symptoms 01/27/25 01/27/25 History magnesium 200 mg tablet 275 mg PO DAILY 01/27/25 02/05/25 History levothyroxine 25 mcg tablet 25 mcg PO DAILY #90 tabs 02/03/25 02/05/25 Rx (Synthroid) Patient hx anesthesia problems: none Family hx anesthesia problems: none Results Review: All pre-operative results and documents have been reviewed as part of the pre-operative evaluation. [facility] Past Medical History Medical History RLQ abdominal pain Broken ankle Thyroid disorder Colitis Arthritis Surgical History Surgical History History of hysterectomy Family History Family History Father Hypertension Cerebrovascular accident Mother Hypertension Thyroid disorder Social History Social History Smoking status: Never smoker Alcohol intake: current Drinks per week: 3 Substance use: never Do You Feel Safe in your Home?: Yes Lack of Transportation: No Lack of Food: Never True Current Housing: I Have Housing Concerned About Future Housing: No Difficulty Paying Gas/Electric Bills: No Difficulty Paying for Meds: No Currently Unemployed: No Difficulty w/ Childcare or Family Care: No Living arrangements: with family Gender identity (if verbalized by the patient): Female Anes - Eval Final PreProcedure Day of Procedure 02/05/25 08:15 Patient weight: obese Lungs: clear to auscultation Airway: Mallampati scale class II Last oral intake: >/= 8 hours ASA classification: III Emergent: no Anesthetic plan: proceed Anesthesia type and monitoring: general GIVS and standard monitoring Results Review: All pre-operative results and documents have been reviewed as part of the pre-operative evaluation. BMI 32, HTN, Hyperlipidemia, hypothyroidism, longstanding UC, active taking care of 2 yo grandchild, no cp or sob. Informed Consent: The patient's anesthetic plan and its attendant risks and benefits were discussed with the patient/family/POA. Questions were solicited and answers provided to the satisfaction of the patient/family/POA.
[2025-02-05] MEDS: LACTATED RINGERS 1,000 ML 150 ML IV CONT (08:19)
--- NOTE | 2025-02-05 08:40 | PM.HPGS ---
History of Present Illness History of Present Illness Consent: Risks, benefits, and alternatives have been discussed and questions answered. Patient agrees to proceed with procedure. Chief complaint: Ulcerative colitis, unspecified, Narrative: Beba Tompkins is a 74 year old female here for colonoscopy, diagnosed with UC probably in 2016 at another facility when she presented with acute colitis, treated with steroids and also few years of sulfasalazine, discontinued medication about 5 years ago and currently she is not taking anything. She is asymptomatic, no diarrhea or blood in stool. Last colonoscopy about 7 years ago and apparently only polyps. Recent stool calprotectin was elevated though. Review of Systems Review of Systems: All systems reviewed & are unremarkable except as noted in HPI and below PMFSH Past Medical History Medical History (Updated 02/05/25 @ 08:41 by Beka Martino MD) History of colitis RLQ abdominal pain Broken ankle Thyroid disorder Colitis Arthritis Surgical History Surgical History History of hysterectomy Family History Family History Father Hypertension Cerebrovascular accident Mother Hypertension Thyroid disorder Social History Social History Smoking status: Never smoker Alcohol intake: current Drinks per week: 3 Substance use: never Do You Feel Safe in your Home?: Yes Lack of Transportation: No Lack of Food: Never True Current Housing: I Have Housing Concerned About Future Housing: No Difficulty Paying Gas/Electric Bills: No Difficulty Paying for Meds: No Currently Unemployed: No Difficulty w/ Childcare or Family Care: No Living arrangements: with family Gender identity (if verbalized by the patient): Female Meds Home Medications and Allergies Home Medications ?Medication ?Instructions ?Recorded ?Confirmed ?Type calcium carbonate 600 mg PO BID 04/13/23 02/05/25 History acetaminophen 325 mg tablet 325 mg PO Q6H PRN pain 08/18/24 01/27/25 History (Tylenol) cholecalciferol (vitamin D3) 25 25 mcg PO DAILY 08/18/24 02/05/25 History mcg (1,000 unit) capsule cinnamon bark 500 mg capsule 500 mg PO DAILY 08/18/24 02/05/25 History (Cinnamon) epinephrine 0.3 mg/0.3 mL 0.3 ml subcut ONCE PRN anaphylaxis 08/18/24 01/27/25 History injection, auto-injector glucosamine HCl 1,500 mg tablet 1,500 mg PO DAILY 08/18/24 02/05/25 History vitamin B complex 1 tablet PO DAILY 08/18/24 02/05/25 History alendronate 70 mg tablet 70 mg PO WEEKLY #12 tabs 01/12/25 01/27/25 Rx aspirin 81 mg chewable tablet 81 mg PO DAILY 01/12/25 02/05/25 History atorvastatin 20 mg tablet 20 mg PO DAILY #90 tabs 01/12/25 02/05/25 Rx conjugated estrogens 0.625 mg/gram 0.3125 mg topical 2XW PRN rash #30 01/12/25 01/27/25 Rx vaginal cream (Premarin) grams diclofenac sodium 1 % topical gel 4 g topical QID #50 grams 01/12/25 01/27/25 Rx fluticasone propionate 50 2 spray intranasal DAILY #16 grams 01/12/25 01/27/25 Rx mcg/actuation nasal spray,suspension folic acid 1 mg tablet 1 mg PO DAILY #90 tabs 01/12/25 02/05/25 Rx losartan 50 mg tablet 50 mg PO DAILY #90 tabs 01/12/25 02/05/25 Rx nystatin 100,000 unit/gram topical 1 applic topical BID #60 grams 01/12/25 01/27/25 Rx powder cetirizine 10 mg tablet 10 mg PO DAILY PRN allergy symptoms 01/27/25 01/27/25 History magnesium 200 mg tablet 275 mg PO DAILY 01/27/25 02/05/25 History levothyroxine 25 mcg tablet 25 mcg PO DAILY #90 tabs 02/03/25 02/05/25 Rx (Synthroid) Allergies Allergy/AdvReac Type Severity Reaction Status Date / Time propoxyphene Allergy Mild Other Verified 02/05/25 08:09 bee stings Allergy Intermediate Swelling Uncoded 01/27/25 08:53 Vital Signs Vital Signs - 24 hr 02/05/25 08:10 Temperature 97.3 F L Pulse Rate 95 Respiratory Rate 19 Blood Pressure 144/90 H Pulse Oximetry 99 Oxygen Delivery Room Air Exam Const: General: comfortable and no acute distress HENMT: Face/Nose/Sinus: Normal nares present Resp: Auscultation: clear to auscultation bilaterally Cardio: Rate: regular rate Rhythm: regular rhythm GI: Inspection: non-distended GI Palp: Yes Soft to palpation Skin: General skin exam: normal color Extrem: General: normal to inspection Psych: Mental Status: mental status grossly normal Assessment and Plan Assessment and plan (1) History of colitis: Code(s): Z87.19 - Personal history of other diseases of the digestive system Status: Acute Assessment and Plan: colonoscopy
--- NOTE | 2025-02-05 08:53 | S_PTH ---
PATIENT: Beba Tompkins LOC: [facility] Min#:[id number] AGE/SX: 74/F ROOM: RE02/05/[address]: Beka Martino MD : 1950 BED: DIS: 02/05/2025 SPEC #: [id number] RECD: 02/05/25 10:19 STATUS: WENCESLAO RETaya #: [id number] PAPA: 02/05/25 08:[address]: Beka Martino DEPT: [facility] Surgical RECD BY: Joelle Fischer ENTERED: 02/05/25 10:20 SP TYPE: Surgical OTHR DR: Cam Churchill MD Tissues: A - Colon Polypectomy B - Colon Biopsy C - Colon Biopsy Procedures: Hematoxylin and Eosin Stain Gross and Microscopic Level 4
[2025-02-05 08:55] VITALS: BP 110/55; PULSE 74; RESP 15; O2SAT 96
[2025-02-05 09:05] VITALS: BP 117/55; PULSE 73; RESP 19; O2SAT 97
[2025-02-05 09:15] VITALS: BP 132/71; PULSE 70; RESP 11; O2SAT 98
== END 2025-02-05 09:28 | disposition home or self-care (01) ==
PROVIDERS: PCP Family Medicine; Visit Provider Internal Medicine Gastroenterology
PROC: 0DJD8ZZ Inspection of Lower Intestinal Tract, Via Natural or Artificial Opening Endoscopic (ICD-10-PCS; CPT 45378; principal; 2025-02-05 09:30)
DX: K51.90 Ulcerative colitis, unspecified, without complications (principal); K63.5 Polyp of colon; K57.30 Diverticulosis of large intestine without perforation or abscess without bleeding; E66.9 Obesity, unspecified; Z68.32 Body mass index [BMI] 32.0-32.9, adult
CPT/HCPCS: 45380; 88305; J2704; J7120